=== PATIENT | female | born 1960 | race Caucasian/White ===

== ENCOUNTER 2022-06-07 20:18 | Emergency (ER) | payer BC ==
[2022-06-07 20:37] VITALS: BP 218/94; PULSE 68; RESP 18; TEMP 98.1
[2022-06-08] MEDS ORDERED: FLUORESCEIN STRIPS 1 MG STRIP BOTH EYES ONE
[2022-06-08] MEDS ORDERED: PROPARACAINE 0.5% OPHTH DROPS 15 ML BTL BOTH EYES STA
[2022-06-08] MEDS ORDERED: MORPHINE SULFATE 4 MG/ML SYRINGE IV STA (00:11)
[2022-06-08] MEDS ORDERED: ONDANSETRON 4 MG/2 ML VIAL IVP STA (00:11)
--- NOTE | 2022-06-08 00:15 | ED ---
Eye Problem HPI - General Chief complaint: Eye Problems Stated complaint: swollen/pressure eye Time Seen by Provider: 06/07/22 23:58 Source: patient Mode of arrival: ambulatory Limitations: no limitations - History of Present Illness Initial comments: This is a pleasant 62-year-old female who presents to emergency department complaining vision change and pressure in her left eye. Patient states she believes she is having a glaucoma 4. Ago and was sent to her retinologist who works out of [facility]. Patient had what sounds like a laser trabeculectomy. She went back for follow up a few days later and had drainage with a needle done by the same retinologist. Patient states she then followed up with Dr. Jarquin who also did a laser procedure. Patient also had nasal drainage after that. Patient was put on medications including an alpha 2 agonist and medications to decrease production of aqueos humor. Patient had follow-up appointments and her pressure was getting better. However, she says she woke up this morning and had some foggy vision out of the left eye. Patient then took a nap and got up around 4 PM and noted there was a pain and pressure. Patient states she tried to call her superintendent renting managing, Dr. Jarquin, but he was not available. Patient also called her retinologist but apparently was unable to get in contact with him as well. No headache, no fever or chills, , no sore throat or difficulty with speech, no neck pain, no chest pain or shortness of breath, no abdominal pain, no nausea or vomiting, no changes in urination or bowel movements, no numbness or tingling, no extremity pain, no skin rashes or lesions. Past medical, surgical, social, and family history reviewed. chief complaint: eye pain, vision change - Related Data Allergies Allergy/AdvReac Type Severity Reaction Status Date / Time ampicillin Allergy Rash/Hives Verified 06/07/22 20:38 aspirin Allergy Rash/Hives Verified 06/07/22 20:38 ciprofloxacin [From Cipro] Allergy Rash/Hives Verified 06/07/22 20:38 codeine Allergy Vomiting Verified 06/07/22 20:38 epinephrine [From EpiPen] Allergy Rash/Hives Verified 06/07/22 20:38 Sulfa (Sulfonamide Allergy Rash/Hives Verified 06/07/22 20:38 Antibiotics) Review of Systems ROS Statement: Those systems with pertinent positive or pertinent negative responses have been documented in the HPI. ROS Other: All systems not noted in ROS Statement are negative. Past Medical History Past Medical History: Asthma, Diabetes Mellitus, Hypertension, Thyroid Disorder Additional Past Medical History / Comment(s): pressure in eye History of Any Multi-Drug Resistant Organisms: None Reported Past Surgical History: No Surgical Hx Reported Past Psychological History: No Psychological Hx Reported Smoking Status: Never smoker Past Alcohol Use History: Rare Past Drug Use History: None Reported General Exam Limitations: no limitations General appearance: in distress (Minimal) Head exam: Present: atraumatic, normocephalic, normal inspection Eye exam: Present: PERRL, EOMI, other (Anterior chamber appears to be cloudy on gross examination) Expanded Eyelids: Normal Inspection: Right Pupils: Regular, Round: Bilateral (Approximately 3 mm with sluggish response), Reactive: Bilateral (Sluggish) Sclera/Conjunctival: Normal Inspection: Bilateral Anterior chamber: Normal Inspection: Right (Left anterior chamber is cloudy) Posterior chamber: Deferred: Bilateral Visual acuity (R) = 20/: 50 Visual acuity (L) = 20/: 200 (He is blurred, patient really just discern light and shape) With correction: Yes IOP (R) in mmH IOP (L) in mmH IOP measured with: other ([facility]onom[facility]) ENT exam: Present: normal exam, normal oropharynx, mucous membranes moist, normal external ear exam. Absent: mucous membranes dry Neck exam: Present: normal inspection. Absent: tenderness, meningismus, lymphadenopathy Respiratory exam: Present: normal lung sounds bilaterally. Absent: respiratory distress, wheezes, rales, rhonchi, stridor Cardiovascular Exam: Present: regular rate, normal rhythm, normal heart sounds. Absent: systolic murmur, diastolic murmur, rubs, gallop, clicks GI/Abdominal exam: Present: soft. Absent: tenderness Neurological exam: Present: alert, oriented X3, CN II-XII intact. Absent: motor sensory deficit Psychiatric exam: Present: normal affect, normal mood Skin exam: Present: warm, dry, intact, normal color. Absent: rash Course Vital Signs 06/07/22 20:33 Temperature 98.1 F Pulse Rate 68 Respiratory 18 Rate Blood Pressure 218/94 O2 Sat by Pulse 99 Oximetry - Reevaluation(s) Reevaluation #1: 06/08/22 02:23 Patient was rechecked prior to transfer and is essentially unchanged. Patient did have nausea and was unable to take by mouth medications. We changed the acetazolamide to IV. I had a long discussion with EMS, patient will need her eyedrops 1 drop of each medication the left eye every [address] down to [facility]. This patient required several rechecks and several procedures for eye pressure and slit-lamp examination - Consultations Consultation #1: Call placed for on-call ophthalmology, Dr. Becerra Procedures - Procedures Initial comment: I was anesthetized with proparacaine. I pressure was checked with the tonometer. Slit lamp examination reveals a cloudy anterior chamber. There was no evidence by my limited exam for cell and flare. Pupils appear to be fixed at around 3-4 mm and were somewhat sluggish to react. Medical Decision Making - Medical Decision Making Patient on dorzolamide, lantonoprost, and brimonidine Patient sees Dr. Jesse Jarquin for ophthalmology and Dr. Brothers out of [facility] for neurology Case discussed with Dr. Flowers the superintendent renting managing at [facility]. She wants all of the patient's eye drops given every [address] down[address] We will start the drops here. She also wanted to ensure that the patient had the dose of Diamox 500 mg by mouth before going. Apparently according to the superintendent renting managing the patient may have seen another physician down there for the glaucoma procedure. She also suggested highly that the patient come by [facility]. Patient transferred [facility]. Eyedrops every [address] down[address] Transferred via ambulance. Acetasol might 500 mg IV given prior to going Patient In a bright room in an upright position. The case was discussed in detail with ED attending physician. Presentation, findings, treatment plan discussed in detail. Adviser Dr. Leonard - Lab Data Result diagrams: 06/08/22 00:54 06/08/22 00:54 Lab Results 06/08/22 06/08/22 Range/Units 00:54 00:54 WBC 10.5 (3.8-10.6) k/uL RBC 3.90 (3.80-5.40) m/uL Hgb 11.3 L (11.4-16.0) gm/dL Hct 34.2 (34.0-46.0) % MCV 87.6 (80.0-100.0) fL MCH 29.0 (25.0-35.0) pg MCHC 33.1 (31.0-37.0) g/dL RDW 12.6 (11.5-15.5) % Plt Count 289 (150-450) k/uL MPV 7.7 Sodium 138 (137-145) mmol/L Potassium 4.6 (3.5-5.1) mmol/L Chloride 99 (98-107) mmol/L Carbon Dioxide 24 (22-30) mmol/L Anion Gap 15 mmol/L BUN 14 (7-17) mg/dL Creatinine 0.64 (0.52-1.04) mg/dL Est GFR (CKD-EPI)AfAm >90 (>60 ml/min/1.73 sqM) Est GFR (CKD-EPI)NonAf >90 (>60 ml/min/1.73 sqM) Glucose 228 H (74-99) mg/dL Calcium 9.9 (8.4-10.2) mg/dL Critical Care Time Total Critical Care Time: 40 Critical Care Time: Time intensive diagnosis with multiple interventions, discussions with the superintendent renting managing at [facility]. Effort was made to contact ophthalmology here. However the patient has a retinologist superintendent renting managing at [facility]. Patient transferred to that facility for continuity of care as she recently had a procedure done there. I had discussion with the vice president residential solar sales superintendent renting managing at that facility. Case also discussed with the accepting ER physician. Tonometry, slit lamp examination Disposition Clinical Impression: Acute angle-closure glaucoma, Blurred vision, left eye, Increased intraocular pressure, Acute left eye pain, Uncontrolled hypertension Narrative: Probable angle-closure glaucoma Disposition: OTHER INSTITUTION NOT DEFINED Condition: Fair Is patient prescribed a controlled substance at d/c from ED?: No Time of Disposition: 01:44 - Out of Hospital Transfer - Req. Specs Out of Hospital Transfer - Requested Specifics: Other Emergency Center ([facility], Dr. Cho)
[2022-06-08 01:07] LABS: HCT 34.2 % (34.0-46.0); HGB 11.3 gm/dL (11.4-16.0); MCHC 33.1 g/dL (31.0-37.0); MCV 87.6 fL (80.0-100.0); Mean Platelet Volume 7.7; Platelet Count 289 k/uL (150-450); RDW 12.6 % (11.5-15.5); WBC 10.5 k/uL (3.8-10.6)
[2022-06-08 01:17] LABS: African American GFR (CKD) >90 (>60 ml/min/1.73 sqM); Anion Gap 15 mmol/L; Blood Urea Nitrogen 14 mg/dL (7-17); Calcium 9.9 mg/dL (8.4-10.2); Carbon Dioxide 24 mmol/L (22-30); Chloride 99 mmol/L (98-107); Glucose 228 mg/dL (74-99); Non-African American GFR(CKD) >90 (>60 ml/min/1.73 sqM); Potassium 4.6 mmol/L (3.5-5.1); Sodium 138 mmol/L (137-145)
[2022-06-08] MEDS ORDERED: SODIUM CHLORIDE 0.9% 1,000 ML IV SCH (01:45)
== END 2022-06-08 02:31 | disposition other institution (70) ==
LOC: EC 20:18
DX: H02.849 Edema of unspecified eye, unspecified eyelid (principal); Z88.0 Allergy status to penicillin; Z88.6 Allergy status to analgesic agent; Z88.1 Allergy status to other antibiotic agents; Z88.5 Allergy status to narcotic agent; Z88.2 Allergy status to sulfonamides; J45.909 Unspecified asthma, uncomplicated; E11.9 Type 2 diabetes mellitus without complications; I10 Essential (primary) hypertension
CPT/HCPCS: 36415; 80048; 85027; 99284; 96374; 96375; J2270; J1120; J2405

== ENCOUNTER 2022-09-11 14:34 | Inpatient (IN) | payer BC ==
--- NOTE | 2022-09-11 15:30 | ED ---
General Adult HPI - General Chief complaint: Skin/Abscess/Foreign Body Stated complaint: L foot infection Time Seen by Provider: 09/11/22 15:08 Source: patient Mode of arrival: ambulatory Limitations: no limitations - History of Present Illness Initial comments: 's patient is a 62-year-old woman who presents here at the advice of her hot box spotter, to be seen about foot infection. The patient went to see her diet tryst as she had noticed redness to the medial aspect of her left foot. She states that the hot box spotter saw her, lanced what he felt was a fluid collection there, and then sent her here with the intention of having IV antibiotics. The patient had not noticed any systemic symptoms, no fever or chills, palpitations, chest pain, dyspnea or other symptoms. She had not noticed redness or swelling prior to today. Onset/Timin -: days(s) Location: left, lower extremity Radiation: non-radiation Severity scale (1-10): 0 Improves with: none Worsens with: none Associated Symptoms: denies other symptoms - Related Data Home Medications Medication Instructions Recorded Confirmed Acetaminophen [Tylenol Arthritis] 650 mg PO QID 09/11/22 09/11/22 Chlorthalidone [Hygroton] 25 mg PO DAILY 09/11/22 09/11/22 Ergocalciferol (Vitamin D2) 1,250 mcg PO WE 09/11/22 09/11/22 [Drisdol (50,000 Iu)] Loratadine [Claritin] 10 mg PO DAILY 09/11/22 09/11/22 Losartan Potassium [Cozaar] 100 mg PO DAILY 09/11/22 09/11/22 Metoprolol Succinate [Metoprolol 12.5 mg PO DAILY 09/11/22 09/11/22 Succinate ER] metFORMIN HCL 1,000 mg PO BID-W/MEALS 09/11/22 09/11/22 prednisoLONE acetate [Pred Mild] 1 drop LEFT EYE BID 09/11/22 09/11/22 Previous Rx's Medication Instructions Recorded clindamycin HCL 300 mg PO QID #28 capsule 09/11/22 Allergies Allergy/AdvReac Type Severity Reaction Status Date / Time ampicillin Allergy Rash/Hives Verified 09/11/22 17:28 aspirin Allergy Rash/Hives Verified 09/11/22 17:28 atropine Allergy Unknown Verified 09/11/22 17:28 ciprofloxacin [From Cipro] Allergy Rash/Hives Verified 09/11/22 17:28 codeine Allergy Vomiting Verified 09/11/22 17:28 epinephrine [From EpiPen] Allergy Rash/Hives Verified 09/11/22 17:28 morphine Allergy Unknown Verified 09/11/22 17:28 Sulfa (Sulfonamide Allergy Rash/Hives Verified 09/11/22 17:28 Antibiotics) Review of Systems ROS Statement: Those systems with pertinent positive or pertinent negative responses have been documented in the HPI. ROS Other: All systems not noted in ROS Statement are negative. Constitutional: Denies: fever, chills, weakness Respiratory: Denies: cough, dyspnea Cardiovascular: Denies: chest pain, palpitations, edema Gastrointestinal: Denies: abdominal pain, vomiting, diarrhea Genitourinary: Denies: dysuria, hematuria Musculoskeletal: Reports: as per HPI, arthralgia. Denies: back pain Skin: Reports: lesions Neurological: Reports: paresthesias. Denies: weakness, numbness Hematological/Lymphatic: Denies: easy bleeding Past Medical History Past Medical History: Asthma, Diabetes Mellitus, Hypertension, Thyroid Disorder Additional Past Medical History / Comment(s): pressure in eye History of Any Multi-Drug Resistant Organisms: None Reported Past Surgical History: No Surgical Hx Reported Past Psychological History: No Psychological Hx Reported Smoking Status: Never smoker Past Alcohol Use History: Rare Past Drug Use History: None Reported General Exam Limitations: no limitations General appearance: alert, in no apparent distress Head exam: Present: atraumatic, normocephalic Eye exam: Present: normal appearance. Absent: scleral icterus, conjunctival injection Neck exam: Present: normal inspection Respiratory exam: Present: normal lung sounds bilaterally. Absent: respiratory distress, wheezes, rales, rhonchi, stridor Cardiovascular Exam: Present: regular rate, normal rhythm, normal heart sounds. Absent: systolic murmur, diastolic murmur, rubs, gallop GI/Abdominal exam: Present: soft. Absent: distended, tenderness, guarding, rebound, rigid, mass Extremities exam: Present: other (Patient has approximately 7 cm diameter area of erythema warmth to the plantar aspect of the left midfoot. There is ulceration in the center with a small amount of bloody purulent drainage. There is moderate tenderness. Chronic foot deformity.) Back exam: Absent: CVA tenderness (R), CVA tenderness (L) Neurological exam: Present: alert Skin exam: Present: warm, dry, intact, normal color. Absent: rash Course Vital Signs 09/11/22 09/11/22 09/11/22 14:39 15:15 15:32 Temperature 97.8 F Pulse Rate 71 68 70 Pulse Rate [ Left] Respiratory 20 17 16 Rate Blood Pressure 199/82 199/76 187/68 Blood Pressure [Left Arm] O2 Sat by Pulse 98 97 97 Oximetry 09/11/22 09/11/22 09/11/22 16:00 17:30 18:31 Temperature Pulse Rate 77 74 77 Pulse Rate [ Left] Respiratory 17 18 16 Rate Blood Pressure 177/67 174/67 196/69 Blood Pressure [Left Arm] O2 Sat by Pulse 99 99 97 Oximetry 09/11/22 09/11/22 19:19 20:00 Temperature 98.3 F 97.6 F Pulse Rate 68 Pulse Rate [ 75 Left] Respiratory 17 17 Rate Blood Pressure 189/69 Blood Pressure 150/64 [Left Arm] O2 Sat by Pulse 98 99 Oximetry Medical Decision Making - Medical Decision Making This patient is 62-year-old woman presenting from her hot box spotter's clinic to have further evaluation and treatment of diabetic foot wound. X-ray was obtained and I interpreted as not showing osteomyelitis or gas gangrene. The patient did have workup here including labs and culture. Started on antibiotics and patient will be admitted to ensure that there is beginning of improvement in her condition and also to have consultation with the vascular surgeon. Case was discussed with the admitting physician Was pt. sent in by a medical professional or institution? @ -[Patient's hot box spotter Did you speak to anyone other than the patient for history? @ -[No Did you review nursing and triage notes? @ -[agree Were old charts reviewed? @ -[No Differential Diagnosis? @ -Differential diagnosis includes but not limited to diabetic foot infection, puncture wound with a wound infection, vasculitis, acute arterial insufficiency, as well as other conditions EKG interpreted by me (3pts min.)? @ -[See chart X-rays interpreted by me (1pt min.)? @ -[See chart CT interpreted by me (1pt min.)? @ -[none] U/S interpreted by me (1pt. min.)? @ -[none] What testing was considered but not performed? (CT, X-rays, U/S, labs)? Why? @ [None What meds were considered but not given? Why? @ -[none] Did you discuss the management of the patient with other professionals? @ -[Admitting physician Did you reconcile home meds? @ -[Yes Was smoking cessation discussed for >3mins.? @ -[none] Was critical care preformed (if so, how long)? @ -[none] Were there social determinants of health that impacted care today? How? (Homelessness, low income, unemployed, alcoholism, drug addiction, transportation, low edu. Level, literacy, decrease access to med. care, long-term, rehab)? @ -[None Was there de-escalation of care discussed even if they declined? (Discuss DNR or withdrawal of care, Hospice)? @ -[No What co-morbidities impacted this encounter? (DM, HTN, Smoking, COPD, CAD, Cancer, CVA, Hep., AIDS, mental health diagnosis, sleep apnea, morbid obesity)? @ -[Diabetes Was patient admitted / discharged? @ -[Admitted Undiagnosed new problem with uncertain prognosis? @ -[none] Drug Therapy requiring intensive monitoring for toxicity (Heparin, Nitro, Insulin, Cardizem)? @ -[Vancomycin Were any procedures done? @ -[none] Diagnosis/symptom? @ -[Acute diabetic foot ulcer Acute, or Chronic, or Acute on Chronic? @ -[default] Uncomplicated (without systemic symptoms) or Complicated (systemic symptoms)? @ -[Uncomplicated Side effects of treatment? @ -[none] Exacerbation, Progression, or Severe Exacerbation] @ -[no] Poses a threat to life or bodily function? @ -[Threat of amputation without adequate treatment - Lab Data Result diagrams: 09/11/22 15:34 09/11/22 15:34 Lab Results 09/11/22 09/11/22 Range/Units 15:34 15:34 WBC 10.6 (3.8-10.6) k/uL RBC 4.02 (3.80-5.40) m/uL Hgb 11.4 (11.4-16.0) gm/dL Hct 35.4 (34.0-46.0) % MCV 88.1 (80.0-100.0) fL MCH 28.3 (25.0-35.0) pg MCHC 32.1 (31.0-37.0) g/dL RDW 13.2 (11.5-15.5) % Plt Count 308 (150-450) k/uL MPV 7.7 Neutrophils % 76 % Lymphocytes % 15 % Monocytes % 5 % Eosinophils % 3 % Basophils % 1 % Neutrophils # 8.0 H (1.3-7.7) k/uL Lymphocytes # 1.6 (1.0-4.8) k/uL Monocytes # 0.5 (0-1.0) k/uL Eosinophils # 0.3 (0-0.7) k/uL Basophils # 0.1 (0-0.2) k/uL ESR 91 H (0-20) mm/hr Sodium 142 (137-145) mmol/L Potassium 4.0 (3.5-5.1) mmol/L Chloride 101 (98-107) mmol/L Carbon Dioxide 29 (22-30) mmol/L Anion Gap 12 mmol/L BUN 16 (7-17) mg/dL Creatinine 0.83 (0.52-1.04) mg/dL Est GFR (CKD-EPI)AfAm 88 (>60 ml/min/1.73 sqM) Est GFR (CKD-EPI)NonAf 76 (>60 ml/min/1.73 sqM) Glucose 112 H (74-99) mg/dL Calcium 10.0 (8.4-10.2) mg/dL Total Bilirubin 0.8 (0.2-1.3) mg/dL AST 17 (14-36) U/L ALT 18 (4-34) U/L Alkaline Phosphatase 80 (38-126) U/L C-Reactive Protein 13.1 H (<1.0) mg/dL Total Protein 8.2 (6.3-8.2) g/dL Albumin 4.7 (3.5-5.0) g/dL Acetone, Qual Negative (Negative) Disposition Clinical Impression: Diabetic foot infection Disposition: ADMITTED IP TO THIS HOSP Condition: Good Is patient prescribed a controlled substance at d/c from ED?: No
[2022-09-11] MEDS ORDERED: CLINDAMYCIN 600 MG in DEXTROSE 5% IN WATER 50 ML IVPB STA ×2 (15:42)
[2022-09-11 16:02] LABS: Basophils # (A) 0.1 k/uL (0-0.2); Basophils % (A) 1 %; Eosinophils # (A) 0.3 k/uL (0-0.7); Eosinophils % (A) 3 %; HCT 35.4 % (34.0-46.0); HGB 11.4 gm/dL (11.4-16.0); Lymphocytes # (A) 1.6 k/uL (1.0-4.8); Lymphocytes % (A) 15 %; MCH 28.3 pg (25.0-35.0); MCHC 32.1 g/dL (31.0-37.0); MCV 88.1 fL (80.0-100.0); Mean Platelet Volume 7.7; Monocytes # (A) 0.5 k/uL (0-1.0); Monocytes % (A) 5 %; Neutrophils % (A) 76 %; Platelet Count 308 k/uL (150-450); RBC 4.02 m/uL (3.80-5.40); RDW 13.2 % (11.5-15.5); WBC 10.6 k/uL (3.8-10.6)
--- NOTE | 2022-09-11 16:04 | XR ---
EXAMINATION TYPE: XR foot complete 3 views LT DATE OF EXAM: 09/11/2022 Comparison: None Clinical History: 62-year-old female foot infection Findings: There is extensive midfoot deformity relating to Charcot arthropathy with midfoot malalignment, deran gement, and bony debris. Secondary rocker-bottom foot deformity and midfoot plantar ulcer. No maddy l ytic osseous destruction is identified. Impression: Severe Charcot arthropathy along the mid foot with secondary rocker-bottom foot deformity and associa briana mid foot plantar soft tissue ulcer. No discrete radiographic evidence for osteomyelitis.
[2022-09-11 16:12] LABS: ALT 18 U/L (4-34); AST 17 U/L (14-36); African American GFR (CKD) 88 (>60 ml/min/1.73 sqM); Albumin 4.7 g/dL (3.5-5.0); Alkaline Phosphatase 80 U/L (38-126); Anion Gap 12 mmol/L; Blood Urea Nitrogen 16 mg/dL (7-17); Carbon Dioxide 29 mmol/L (22-30); Chloride 101 mmol/L (98-107); Glucose 112 mg/dL (74-99); Non-African American GFR(CKD) 76 (>60 ml/min/1.73 sqM); Sodium 142 mmol/L (137-145); Total Bilirubin 0.8 mg/dL (0.2-1.3); Total Protein 8.2 g/dL (6.3-8.2)
[2022-09-11 16:24] LABS: C Reactive Protein 13.1 mg/dL (<1.0)
[2022-09-11 17:49] LABS: Erythrocyte Sedimentation Rate 91 mm/hr (0-20)
[2022-09-11] MEDS ORDERED: VANCOMYCIN IV PER PHARMACY 1 EACH MISC MISCELLANE PRN (18:02)
[2022-09-11] MEDS ORDERED: NALOXONE 0.4 MG/ML 1 ML VIAL IV PRN (18:04)
[2022-09-11] MEDS ORDERED: ACETAMINOPHEN TAB 325 MG TAB PO PRN (18:04)
[2022-09-11] MEDS ORDERED: VANCOMYCIN 1,750 MG in SODIUM CHLORIDE 0.9% 500 ML 500 ML IVPB ONE (18:15)
[2022-09-11] MEDS: SODIUM CHLORIDE 0.9% 1,000 ML IV SCH (18:26)
[2022-09-11 20:35] LABS: Glucose,Whole Blood 132 mg/dL (70-110)
--- NOTE | 2022-09-11 21:31 | P.HPIM ---
History of Present Illness H&P Date: 09/11/22 Chief Complaint: Left foot abscess This is a pleasant 62-year-old patient who follows with Dr. Sammi pierce Chronic stable medical conditions include asthma, diabetes, hypertension, peripheral neuropathy, left Charcot foot. Patient is very bored on the left foot. He notices a leg swelling there. Has no sensations. He developed a 80 of redness and she took off her shoe. Went to a chiropractor. He drained a large amount of pus and sent the patient in. Denies any fever and chills. Last 2 days has been feeling tired and sleepy. Review of systems: GEN.: Tired, decreased appetite EYES: None HEENT: None NECK: None RESPIRATORY: None CARDIOVASCULAR: None GASTROINTESTINAL: None GENITOURINARY: None MUSCULOSKELETAL: [Left Charcot foot LYMPHATICS: None HEMATOLOGICAL: None PSYCHIATRY: None NEUROLOGICAL: Neuropathy Past medical history to include: Asthma, diabetes with peripheral neuropathy, left Charcot foot, hypertension, glaucoma Social history: Lives alone. No smoking or alcohol Physical examination: VITAL SIGNS: 97.6, 75, 17, 150/64, 99% room air GENERAL: BMI 42.5, declining weight awake, comfortable. EYES: Pupils equal. Conjunctiva normal. HEENT: External appearance of nose and ears normal, oral cavity grossly normal. NECK: JVD not raised; masses not palpable. HEART: First and second heart sounds are normal; no edema. LUNGS: Respiratory rate normal; clear to auscultation. ABDOMEN: Soft, nontender, liver spleen not palpable, no masses palpable. PSYCH: Alert and oriented x3; mood and affect normal. MUSCULOSKELETAL:No Clubbing/cyanosis;muscles-grossly intact. Left foot distorted. Wound on the plantar aspect. Dressing. NEUROLOGICAL: Cranial nerves grossly intact; no facial asymmetry, power and sensation grossly intact. Peripheral sensation decreased LYMPHATICS: No lymph nodes palpable in the axilla and neck INVESTIGATIONS, reviewed in the clinical context: White count 10.6 hemoglobin 11.4 platelets 308 potassium 4 creatinine 0.83 CRP 13.1 Foot x-ray: Extensive midfoot deformity Malalignment derangement and bony debris . Midfoot plantar ulcer. Assessment and plan: -Abscess of the left Charcot foot that was drained by patient's chiropractor. IV vancomycin. Cultures. Consult vascular. -Moderate obesity BMI 42.5 Weight loss measures -Essential hypertension Losartan, Toprol-XL -Diabetes mellitus type 2 Follow Accu-Cheks with sliding scale -Painless diabetic peripheral neuropathy -Left Charcot foot Past Medical History Past Medical History: Asthma, Diabetes Mellitus, Hypertension, Thyroid Disorder Additional Past Medical History / Comment(s): pressure in eye History of Any Multi-Drug Resistant Organisms: None Reported Past Surgical History: No Surgical Hx Reported Past Psychological History: No Psychological Hx Reported Smoking Status: Never smoker Past Alcohol Use History: Rare Past Drug Use History: None Reported Medications and Allergies Home Medications Medication Instructions Recorded Confirmed Type Acetaminophen [Tylenol Arthritis] 650 mg PO QID 09/11/22 09/11/22 History Chlorthalidone [Hygroton] 25 mg PO DAILY 09/11/22 09/11/22 History Ergocalciferol (Vitamin D2) 1,250 mcg PO WE 09/11/22 09/11/22 History [Drisdol (50,000 Iu)] Loratadine [Claritin] 10 mg PO DAILY 09/11/22 09/11/22 History Losartan Potassium [Cozaar] 100 mg PO DAILY 09/11/22 09/11/22 History Metoprolol Succinate [Metoprolol 12.5 mg PO DAILY 09/11/22 09/11/22 History Succinate ER] clindamycin HCL 300 mg PO QID #28 capsule 09/11/22 Rx metFORMIN HCL 1,000 mg PO BID-W/MEALS 09/11/22 09/11/22 History prednisoLONE acetate [Pred Mild] 1 drop LEFT EYE BID 09/11/22 09/11/22 History Allergies Allergy/AdvReac Type Severity Reaction Status Date / Time ampicillin Allergy Rash/Hives Verified 09/11/22 17:28 aspirin Allergy Rash/Hives Verified 09/11/22 17:28 atropine Allergy Unknown Verified 09/11/22 17:28 ciprofloxacin [From Cipro] Allergy Rash/Hives Verified 09/11/22 17:28 codeine Allergy Vomiting Verified 09/11/22 17:28 epinephrine [From EpiPen] Allergy Rash/Hives Verified 09/11/22 17:28 morphine Allergy Unknown Verified 09/11/22 17:28 Sulfa (Sulfonamide Allergy Rash/Hives Verified 09/11/22 17:28 Antibiotics) Physical Exam Vitals: Vital Signs Temp Pulse Pulse Resp BP BP Pulse Ox 09/11/22 20:00 97.6 F 75 17 150/64 99 09/11/22 19:19 98.3 F 68 17 189/69 98 09/11/22 18:31 77 16 196/69 97 09/11/22 17:30 74 18 174/67 99 09/11/22 16:00 77 17 177/67 99 09/11/22 15:32 70 16 187/68 97 09/11/22 15:15 68 17 199/76 97 09/11/22 14:39 97.8 F 71 20 199/82 98 Intake and Output 09/11/22 09/11/22 09/11/22 06:59 14:59 22:59 Other: Weight 108.862 kg Results CBC & Chem 7: 09/11/22 15:34 09/11/22 15:34 Labs: Abnormal Lab Results - Last 24 Hours (Table) 09/11/22 09/11/22 09/11/22 Range/Units 15:34 15:34 20:33 Neutrophils # 8.0 H (1.3-7.7) k/uL ESR 91 H (0-20) mm/hr Glucose 112 H (74-99) mg/dL POC Glucose (mg/dL) 132 H (70-110) mg/dL C-Reactive Protein 13.1 H (<1.0) mg/dL
[2022-09-11] MEDS ORDERED: LACTULOSE 20 GM/30 ML CUP PO PRN (21:32)
[2022-09-11] MEDS ORDERED: ONDANSETRON 4 MG/2 ML VIAL IVP PRN (21:32)
[2022-09-11] MEDS ORDERED: ALPRAZolam 0.25 MG TAB PO PRN (21:32)
[2022-09-11] MEDS ORDERED: MELATONIN 3 MG TABLET PO PRN (21:32)
[2022-09-11] MEDS ORDERED: CALCIUM CARBONATE 500 MG CHEWABLE PO PRN (21:32)
[2022-09-11] MEDS ORDERED: DEXTROSE 50% SYRINGE 50 ML IVP PRN ×2 (21:33)
[2022-09-11] MEDS: INSULIN ASPART (NovoLOG) 100 UNIT/ML VIAL SQ SCH (22:16)
[2022-09-11] MEDS: ENOXAPARIN 40 MG/0.4 ML SYRINGE SQ SCH (22:35)
[2022-09-11] MEDS: ACETAMINOPHEN TAB 325 MG TAB PO SCH (22:35)
[2022-09-11] MEDS: prednisoLONE ACETATE 1% OPHTH DROPS 5 ML BTL LEFT EYE SCH ×2 (22:36→22:47)
[2022-09-12] MEDS: prednisoLONE ACETATE 1% OPHTH DROPS 5 ML BTL LEFT EYE SCH ×10 (00:16→22:30)
[2022-09-12 06:01] LABS: Glucose,Whole Blood 118 mg/dL (70-110)
[2022-09-12] MEDS: INSULIN ASPART (NovoLOG) 100 UNIT/ML VIAL SQ SCH ×3 (06:30→16:49)
[2022-09-12 07:03] LABS: ALT 12 U/L (4-34); AST 13 U/L (14-36); African American GFR (CKD) >90 (>60 ml/min/1.73 sqM); Albumin 3.6 g/dL (3.5-5.0); Albumin/Globulin Ratio 1.3; Alkaline Phosphatase 57 U/L (38-126); Anion Gap 7 mmol/L; Blood Urea Nitrogen 14 mg/dL (7-17); Calcium 8.8 mg/dL (8.4-10.2); Carbon Dioxide 28 mmol/L (22-30); Chloride 107 mmol/L (98-107); Globulin 2.7 g/dL; Glucose 126 mg/dL (74-99); Non-African American GFR(CKD) 80 (>60 ml/min/1.73 sqM); Potassium 3.8 mmol/L (3.5-5.1); Sodium 142 mmol/L (137-145); Total Bilirubin 0.6 mg/dL (0.2-1.3); Total Protein 6.3 g/dL (6.3-8.2)
[2022-09-12] MEDS: metFORMIN 500 MG TAB PO SCH ×2 (07:36→17:03)
[2022-09-12] MEDS: ENOXAPARIN 40 MG/0.4 ML SYRINGE SQ SCH (08:55)
[2022-09-12] MEDS: ACETAMINOPHEN TAB 325 MG TAB PO SCH ×4 (08:55→22:29)
[2022-09-12] MEDS: LOSARTAN 50 MG TAB PO SCH (08:57)
[2022-09-12] MEDS ORDERED: METOPROLOL SUCCINATE (ER) 25 MG TAB.ER.24H PO SCH (09:00)
[2022-09-12] MEDS: VANCOMYCIN 1,750 MG in SODIUM CHLORIDE 0.9% 500 ML 500 ML IVPB SCH (10:23)
[2022-09-12 11:32] LABS: Glucose,Whole Blood 98 mg/dL (70-110)
--- NOTE | 2022-09-12 13:04 | P.PN ---
Progress Note - Text Progress Note Date: 09/12/22 Chief Complaint: Left foot abscess This is a pleasant 62-year-old patient who follows with Dr. Sammi pierce Chronic stable medical conditions include asthma, diabetes, hypertension, peripheral neuropathy, left Charcot foot. Patient is very bored on the left foot. He notices a leg swelling there. Has no sensations. He developed a area of redness and she took off her shoe. Went to a chiropractor. He drained a large amount of pus and sent the patient in. Denies any fever and chills. Last 2 days has been feeling tired and sleepy. 09/12/2022: Comfortable. Oral intake fair. On IV vancomycin and cefepime. Cultures pending. Consultation to ID. Ending vascular input. Blood pressure running on the high side. Increase Toprol-XL to 12.5 twice a day. Add chlorthalidone 25 mg a day Active Medications Acetaminophen (Acetaminophen Tab 325 Mg Tab) 650 mg PO Q6HR PRN PRN Reason: Mild Pain or Fever > 100.5 Acetaminophen (Acetaminophen Tab 325 Mg Tab) 650 mg PO QID [facility] Last Admin: 09/12/22 12:37 Dose: 650 mg Alprazolam (Alprazolam 0.25 Mg Tab) 0.25 mg PO Q6HR PRN PRN Reason: Anxiety Calcium Carbonate/Glycine (Calcium Carbonate 500 Mg Chewable) 1,000 mg PO Q4HR PRN PRN Reason: Dyspepsia Dextrose/Water (Dextrose 50% Syringe 50 Ml) 25 ml IVP PER PROTOCOL PRN; Protocol PRN Reason: Hypoglycemia Dextrose/Water (Dextrose 50% Syringe 50 Ml) 50 ml IVP PER PROTOCOL PRN; Protocol PRN Reason: Hypoglycemia Enoxaparin Sodium (Enoxaparin 40 Mg/0.4 Ml Syringe) 40 mg SQ DAILY [facility] Last Admin: 09/12/22 08:55 Dose: 40 mg Ergocalciferol (Ergocalciferol 1,250 Mcg (50,000 Iu) Capsule) 1,250 mcg PO WE [facility] Sodium Chloride (Saline 0.9%) 1,000 mls @ 20 mls/hr IV .Q24H [facility] Last Admin: 09/11/22 18:26 Dose: 20 mls/hr Vancomycin HCl 1,750 mg/ (Sodium Chloride) 500 mls @ 167 mls/hr IVPB Q16H [facility] Last Admin: 09/12/22 10:23 Dose: 167 mls/hr Cefepime HCl 2 gm/ Sodium (Chloride) 100 mls @ 25 mls/hr IVPB Q8HR [facility]; Protocol Insulin Aspart (Insulin Aspart (Novolog) 100 Unit/Ml Vial) 0 unit SQ AC-TID [facility]; Protocol Last Admin: 09/12/22 11:53 Dose: Not Given Lactulose (Lactulose 20 Gm/30 Ml Cup) 20 gm PO DAILY PRN PRN Reason: Constipation Losartan Potassium (Losartan 50 Mg Tab) 100 mg PO DAILY [facility] Last Admin: 09/12/22 08:57 Dose: 100 mg Melatonin (Melatonin 3 Mg Tablet) 3 mg PO HS PRN PRN Reason: Insomnia Metformin HCl (Metformin 500 Mg Tab) 1,000 mg PO BID-W/MEALS [facility] Last Admin: 09/12/22 07:36 Dose: 1,000 mg Naloxone HCl (Naloxone 0.4 Mg/Ml 1 Ml Vial) 0.2 mg IV Q2M PRN PRN Reason: Opioid Reversal Ondansetron HCl (Ondansetron 4 Mg/2 Ml Vial) 4 mg IVP Q8HR PRN PRN Reason: Nausea And Vomiting Prednisolone Acetate (Prednisolone Acetate 1% Ophth Drops 5 Ml Btl) 1 drops LEFT EYE Q2H [facility] Last Admin: 09/12/22 11:55 Dose: 1 drops Past medical history to include: Asthma, diabetes with peripheral neuropathy, left Charcot foot, hypertension, glaucoma Social history: Lives alone. No smoking or alcohol Physical examination: VITAL SIGNS: At 8.3, 67, 16, 181/78, 93% room air GENERAL: Reclining in bed, awake, comfortable EYES: Pupils equal. Conjunctiva normal. HEENT: External appearance of nose and ears normal, oral cavity grossly normal. NECK: JVD not raised; masses not palpable. HEART: First and second heart sounds are normal; no edema. LUNGS: Respiratory rate normal; clear to auscultation. ABDOMEN: Soft, nontender, liver spleen not palpable, no masses palpable. PSYCH: Alert and oriented x3; mood and affect normal. MUSCULOSKELETAL:No Clubbing/cyanosis;muscles-grossly intact. Left foot distorted. Wound on the plantar aspect. Dressing. NEUROLOGICAL: Cranial nerves grossly intact; no facial asymmetry, power grossly intact. Peripheral sensation decreased INVESTIGATIONS, reviewed in the clinical context: White count 10.6 hemoglobin 11.4 platelets 308 potassium 4 creatinine 0.83 CRP 13.1 Foot x-ray: Extensive midfoot deformity Malalignment derangement and bony debris. Midfoot plantar ulcer. Assessment and plan: -Abscess of the left Charcot foot that was drained outpatient by patient's chiropractor. Cultures pending IV vancomycin, IV cefepime. Cultures. Vascular ID consulted. -Moderate obesity BMI 42.5 Weight loss measures -Essential hypertension, uncontrolled Losartan 100 mg a day, Toprol-XL increased to 12.5 twice a day. Chlorthalidone 25 mg daily added. -Diabetes mellitus type 2 Follow Accu-Cheks with sliding scale -Painless diabetic peripheral neuropathy -Left Charcot foot Adjust blood pressure medications. Pending culture results. Consult to vascular 90. Discussed with patient.
[2022-09-12] MEDS: CHLORTHALIDONE 25 MG TAB PO SCH (14:29)
--- NOTE | 2022-09-12 15:07 | P.GSCN ---
History of Present Illness History of present illness: 62-year-old white female history of diabetes, hypertension, chronic Charcot foot foot, patient went to his swimming professor patient had a I&D on the left foot plantar aspect measurement of the wound is 6 x 3 cm at this point no discharge noted there is mild redness noted of the lateral aspect of the skin on the plantar aspect no localized tenderness noted patient also has a dry callus on the plantar aspect with no drainage or redness and has been going to her swimming professor on regular basis x-ray foot shows Charcot foot foot with no evidence of any abscess Medical history patient has history of diabetes hypertension peripheral neuropathy Neck examination neck is supple Chest is clear good and both lungs Abdomen soft nontender Vascular femorals are 1+ DP and PT not palpable patient has a 6 x 3 cm wound which is granulated on the plantar aspect and mild redness on the skin edges noted I see no fluctuation to suggest patient needs a major immediate I&D and debridement patient is an IV antibiotic and an infectious disease if patient noticed any a evidence of abscess or any necrotic tissue we will consider doing had a wound debridement and there is a callus on the plantar aspect which is dry plan is continue with IV antibiotic nonweightbearing we'll follow with you Past Medical History Past Medical History: Asthma, Diabetes Mellitus, Hypertension, Thyroid Disorder Additional Past Medical History / Comment(s): pressure in eye History of Any Multi-Drug Resistant Organisms: None Reported Past Surgical History: No Surgical Hx Reported Past Psychological History: No Psychological Hx Reported Smoking Status: Never smoker Past Alcohol Use History: Rare Past Drug Use History: None Reported Medications and Allergies Home Medications Medication Instructions Recorded Confirmed Type Acetaminophen [Tylenol Arthritis] 650 mg PO QID 09/11/22 09/11/22 History Chlorthalidone [Hygroton] 25 mg PO DAILY 09/11/22 09/11/22 History Ergocalciferol (Vitamin D2) 1,250 mcg PO WE 09/11/22 09/11/22 History [Drisdol (50,000 Iu)] Loratadine [Claritin] 10 mg PO DAILY 09/11/22 09/11/22 History Losartan Potassium [Cozaar] 100 mg PO DAILY 09/11/22 09/11/22 History Metoprolol Succinate [Metoprolol 12.5 mg PO DAILY 09/11/22 09/11/22 History Succinate ER] clindamycin HCL 300 mg PO QID #28 capsule 09/11/22 Rx metFORMIN HCL 1,000 mg PO BID-W/MEALS 09/11/22 09/11/22 History prednisoLONE acetate [Pred Mild] 1 drop LEFT EYE BID 09/11/22 09/11/22 History Allergies Allergy/AdvReac Type Severity Reaction Status Date / Time ampicillin Allergy Rash/Hives Verified 09/11/22 17:28 aspirin Allergy Rash/Hives Verified 09/11/22 17:28 atropine Allergy Unknown Verified 09/11/22 17:28 ciprofloxacin [From Cipro] Allergy Rash/Hives Verified 09/11/22 17:28 codeine Allergy Vomiting Verified 09/11/22 17:28 epinephrine [From EpiPen] Allergy Rash/Hives Verified 09/11/22 17:28 morphine Allergy Unknown Verified 09/11/22 17:28 Sulfa (Sulfonamide Allergy Rash/Hives Verified 09/11/22 17:28 Antibiotics) Surgical - Exam Vital Signs Temp Pulse Resp BP Pulse Ox 97.8 F 71 20 199/82 98 09/11/22 14:39 09/11/22 14:39 09/11/22 14:39 09/11/22 14:39 09/11/22 14:39 Results - Labs 09/11/22 15:34 09/12/22 05:57 Abnormal Lab Results - Last 24 Hours (Table) 09/11/22 09/11/22 09/11/22 Range/Units 15:34 15:34 20:33 Neutrophils # 8.0 H (1.3-7.7) k/uL ESR 91 H (0-20) mm/hr Glucose 112 H (74-99) mg/dL POC Glucose (mg/dL) 132 H (70-110) mg/dL AST (14-36) U/L C-Reactive Protein 13.1 H (<1.0) mg/dL 09/12/22 09/12/22 Range/Units 05:57 06:00 Neutrophils # (1.3-7.7) k/uL ESR (0-20) mm/hr Glucose 126 H (74-99) mg/dL POC Glucose (mg/dL) 118 H (70-110) mg/dL AST 13 L (14-36) U/L C-Reactive Protein (<1.0) mg/dL Microbiology - Last 24 Hours (Table) 09/11/22 17:58 Gram Stain - Preliminary Foot - Left Wound Culture - Preliminary Diabetes panel 09/11/22 09/12/22 Range/Units 15:34 05:57 Sodium 142 142 (137-145) mmol/L Potassium 4.0 3.8 (3.5-5.1) mmol/L Chloride 101 107 (98-107) mmol/L Carbon Dioxide 29 28 (22-30) mmol/L BUN 16 14 (7-17) mg/dL Creatinine 0.83 0.80 (0.52-1.04) mg/dL Glucose 112 H 126 H (74-99) mg/dL Calcium 10.0 8.8 (8.4-10.2) mg/dL AST 17 13 L (14-36) U/L ALT 18 12 (4-34) U/L Alkaline Phosphatase 80 57 (38-126) U/L Total Protein 8.2 6.3 (6.3-8.2) g/dL Albumin 4.7 3.6 (3.5-5.0) g/dL Calcium panel 09/11/22 09/12/22 Range/Units 15:34 05:57 Calcium 10.0 8.8 (8.4-10.2) mg/dL Albumin 4.7 3.6 (3.5-5.0) g/dL Pituitary panel 09/11/22 09/12/22 Range/Units 15:34 05:57 Sodium 142 142 (137-145) mmol/L Potassium 4.0 3.8 (3.5-5.1) mmol/L Chloride 101 107 (98-107) mmol/L Carbon Dioxide 29 28 (22-30) mmol/L BUN 16 14 (7-17) mg/dL Creatinine 0.83 0.80 (0.52-1.04) mg/dL Glucose 112 H 126 H (74-99) mg/dL Calcium 10.0 8.8 (8.4-10.2) mg/dL Adrenal panel 09/11/22 09/12/22 Range/Units 15:34 05:57 Sodium 142 142 (137-145) mmol/L Potassium 4.0 3.8 (3.5-5.1) mmol/L Chloride 101 107 (98-107) mmol/L Carbon Dioxide 29 28 (22-30) mmol/L BUN 16 14 (7-17) mg/dL Creatinine 0.83 0.80 (0.52-1.04) mg/dL Glucose 112 H 126 H (74-99) mg/dL Calcium 10.0 8.8 (8.4-10.2) mg/dL Total Bilirubin 0.8 0.6 (0.2-1.3) mg/dL AST 17 13 L (14-36) U/L ALT 18 12 (4-34) U/L Alkaline Phosphatase 80 57 (38-126) U/L Total Protein 8.2 6.3 (6.3-8.2) g/dL Albumin 4.7 3.6 (3.5-5.0) g/dL
--- NOTE | 2022-09-12 16:11 | P.CONS ---
History of Present Illness - Reason for Consult Consult date: 09/12/22 Left foot abscess Requesting physician: Sammy Mojica - Chief Complaint Increasing swelling redness to the left foot x few days - History of Present Illness Patient is a 62-year-old female with a past medical history significant for diabetes mellitus with peripheral neuropathy patient did have a left Charcot foot, hypertension and asthma, patient apparently started having increasing swelling redness on the plantar aspect of her left foot few Days ago patient denies any history of any trauma with worsening and swelling and redness she went to see her process machine operator who subsequently tolerating her to go to the ER patient did have diabetic neuropathy denies significant pain however she did feel pressure especially when the is touched did have diffuse swelling or redness and fluctuation but denies any foul-smelling drainage, patient on presentation hospital was afebrile patient did have a normal white count with a left shift kidney function was normal patient did have a x-ray of the left foot which did show severe Charcot arthropathy with midfoot with secondary rocker- bottom foot deformity soft tissue also no evidence of Osteomyelitis, patient did have multiplePatient with multiple antibiotic ALLERGIES that would limit the number of antibiotic safe to use she was started on vancomycin has been admitted to the hospital infectious disease was consulted for further management of antibiotic therapy Review of Systems Positive point has been mentioned in the HPI rest of the systems are negative Past Medical History Past Medical History: Asthma, Diabetes Mellitus, Hypertension, Thyroid Disorder Additional Past Medical History / Comment(s): pressure in eye History of Any Multi-Drug Resistant Organisms: None Reported Past Surgical History: No Surgical Hx Reported Past Psychological History: No Psychological Hx Reported Smoking Status: Never smoker Past Alcohol Use History: Rare Past Drug Use History: None Reported Medications and Allergies Home Medications Medication Instructions Recorded Confirmed Type Acetaminophen [Tylenol Arthritis] 650 mg PO QID 09/11/22 09/11/22 History Chlorthalidone [Hygroton] 25 mg PO DAILY 09/11/22 09/11/22 History Ergocalciferol (Vitamin D2) 1,250 mcg PO WE 09/11/22 09/11/22 History [Drisdol (50,000 Iu)] Loratadine [Claritin] 10 mg PO DAILY 09/11/22 09/11/22 History Losartan Potassium [Cozaar] 100 mg PO DAILY 09/11/22 09/11/22 History Metoprolol Succinate [Metoprolol 12.5 mg PO DAILY 09/11/22 09/11/22 History Succinate ER] clindamycin HCL 300 mg PO QID #28 capsule 09/11/22 Rx metFORMIN HCL 1,000 mg PO BID-W/MEALS 09/11/22 09/11/22 History prednisoLONE acetate [Pred Mild] 1 drop LEFT EYE BID 09/11/22 09/11/22 History Allergies Allergy/AdvReac Type Severity Reaction Status Date / Time ampicillin Allergy Rash/Hives Verified 09/11/22 17:28 aspirin Allergy Rash/Hives Verified 09/11/22 17:28 atropine Allergy Unknown Verified 09/11/22 17:28 ciprofloxacin [From Cipro] Allergy Rash/Hives Verified 09/11/22 17:28 codeine Allergy Vomiting Verified 09/11/22 17:28 epinephrine [From EpiPen] Allergy Rash/Hives Verified 09/11/22 17:28 morphine Allergy Unknown Verified 09/11/22 17:28 Sulfa (Sulfonamide Allergy Rash/Hives Verified 09/11/22 17:28 Antibiotics) Physical Exam Vitals: Vital Signs Temp Pulse Pulse Resp BP BP Pulse Ox 09/12/22 10:59 164/78 09/12/22 10:44 181/78 09/12/22 07:26 98.3 F 67 16 177/81 93 L 09/12/22 02:00 97.7 F 84 17 173/71 93 L 09/11/22 22:35 75 17 09/11/22 20:00 97.6 F 75 17 150/64 99 09/11/22 19:19 98.3 F 68 17 189/69 98 09/11/22 18:31 77 16 196/69 97 09/11/22 17:30 74 18 174/67 99 09/11/22 16:00 77 17 177/67 99 09/11/22 15:32 70 16 187/68 97 09/11/22 15:15 68 17 199/76 97 09/11/22 14:39 97.8 F 71 20 199/82 98 Intake and Output 09/11/22 09/12/22 09/12/22 22:59 06:59 14:59 Other: Voiding Method Toilet # Voids 4 Weight 108.862 kg GENERAL DESCRIPTION: Middle-aged female lying in bed, no distress. No tachypnea or accessory muscle of respiration use. HEENT: Shows Pallor , no scleral icterus. Oral mucous membrane is dry. No pharyngeal erythema or thrush NECK: Trachea central, no thyromegaly. LUNGS: Unlabored breathing. Clear to auscultation anteriorly. No wheeze or crackle. HEART: S1, S2, regular rate and rhythm. No loud murmur ABDOMEN: Soft, no tenderness , guarding or rigidity, no organomegaly EXTREMITIES: Left foot did have extensive Charcot deformity with extensive swelling and redness on the dorsum aspect of the left foot with some fluctuation no drainage was noticed SKIN: No rash, no masses palpable. NEUROLOGICAL: The patient is awake, alert, oriented x3, mood and affect normal. Results CBC & Chem 7: 09/11/22 15:34 09/13/22 06:36 Labs: Abnormal Lab Results - Last 24 Hours (Table) 09/11/22 09/11/22 09/11/22 Range/Units 15:34 15:34 20:33 Neutrophils # 8.0 H (1.3-7.7) k/uL ESR 91 H (0-20) mm/hr Glucose 112 H (74-99) mg/dL POC Glucose (mg/dL) 132 H (70-110) mg/dL AST (14-36) U/L C-Reactive Protein 13.1 H (<1.0) mg/dL 09/12/22 09/12/22 Range/Units 05:57 06:00 Neutrophils # (1.3-7.7) k/uL ESR (0-20) mm/hr Glucose 126 H (74-99) mg/dL POC Glucose (mg/dL) 118 H (70-110) mg/dL AST 13 L (14-36) U/L C-Reactive Protein (<1.0) mg/dL Microbiology - Last 24 Hours (Table) 09/11/22 17:58 Gram Stain - Preliminary Foot - Left Wound Culture - Preliminary Assessment and Plan (1) Diabetic foot infection Current Visit: Yes Status: Acute Code(s): E11.628 - TYPE 2 DIABETES MELLITUS WITH OTHER SKIN COMPLICATIONS; L08.9 - LOCAL INFECTION OF THE SKIN AND SUBCUTANEOUS TISSUE, UNSP SNOMED Code(s): 994873416 Plan: 1patient with a left diabetic foot infection in this patient with evidence of possible abscess clinically as she did have a significant fluctuation and redness and will need to cover for the polymicrobial karen usually associated with diabetic foot infection. 2Patient with multiple antibiotic ALLERGIES that would limit the number of antibiotic safe to use 3-Vancomycin pharmacy to dose target trough of 15 while watching kidney function and Vanco trough closely 4-we'll add cefepime to cover for gram-negative 5-await vascular surgery evaluation for drainage of the abscess and deep culture both aerobic and anaerobic We will follow on clinical condition and cultures to further adjust medication if needed Thank you for this consultation will follow this patient with you Time with Patient: Greater than 30
[2022-09-12] MEDS: CEFEPIME 2 GM in SODIUM CHLORIDE 0.9% 100 ML IVPB SCH (16:22)
[2022-09-12 16:38] LABS: Glucose,Whole Blood 120 mg/dL (70-110)
[2022-09-12] MEDS: SODIUM CHLORIDE 0.9% 1,000 ML IV SCH (18:20)
[2022-09-12 19:49] LABS: Glucose,Whole Blood 153 mg/dL (70-110)
[2022-09-12] MEDS: METOPROLOL SUCCINATE (ER) 25 MG TAB.ER.24H PO SCH (22:29)
[2022-09-13] MEDS: CEFEPIME 2 GM in SODIUM CHLORIDE 0.9% 100 ML IVPB SCH ×2 (00:23→08:22)
[2022-09-13] MEDS: prednisoLONE ACETATE 1% OPHTH DROPS 5 ML BTL LEFT EYE SCH ×12 (00:25→23:11)
[2022-09-13] MEDS: VANCOMYCIN 1,750 MG in SODIUM CHLORIDE 0.9% 500 ML 500 ML IVPB SCH (02:55)
[2022-09-13 06:04] LABS: Glucose,Whole Blood 153 mg/dL (70-110)
[2022-09-13 07:40] LABS: ALT 14 U/L (4-34); AST 15 U/L (14-36); African American GFR (CKD) >90 (>60 ml/min/1.73 sqM); Albumin 3.6 g/dL (3.5-5.0); Albumin/Globulin Ratio 1.3; Alkaline Phosphatase 59 U/L (38-126); Anion Gap 8 mmol/L; Blood Urea Nitrogen 13 mg/dL (7-17); C Reactive Protein 5.4 mg/dL (<1.0); Calcium 8.7 mg/dL (8.4-10.2); Carbon Dioxide 26 mmol/L (22-30); Chloride 106 mmol/L (98-107); Globulin 2.8 g/dL; Glucose 134 mg/dL (74-99); Non-African American GFR(CKD) 83 (>60 ml/min/1.73 sqM); Potassium 3.7 mmol/L (3.5-5.1); Sodium 140 mmol/L (137-145); Total Bilirubin 0.6 mg/dL (0.2-1.3); Total Protein 6.4 g/dL (6.3-8.2)
[2022-09-13] MEDS: CHLORTHALIDONE 25 MG TAB PO SCH (08:22)
[2022-09-13] MEDS: ENOXAPARIN 40 MG/0.4 ML SYRINGE SQ SCH (08:22)
[2022-09-13] MEDS: metFORMIN 500 MG TAB PO SCH ×2 (08:22→17:23)
[2022-09-13] MEDS: LOSARTAN 50 MG TAB PO SCH (08:22)
[2022-09-13] MEDS: ACETAMINOPHEN TAB 325 MG TAB PO SCH ×4 (08:22→21:00)
[2022-09-13] MEDS: METOPROLOL SUCCINATE (ER) 25 MG TAB.ER.24H PO SCH (08:23)
[2022-09-13] MEDS: INSULIN ASPART (NovoLOG) 100 UNIT/ML VIAL SQ SCH ×3 (08:37→17:16)
--- NOTE | 2022-09-13 11:15 | P.PN ---
Progress Note - Text 62-year-old white female diabetic patient has a Charcot foot foot patient came to the ER with history of 4 wound on the plantar aspect patient went to see the magazine worker he did the I&D according to the patient there was some serous fluid which was sent for culture and culture came back as a beta-hemolytic strep wound is a clean and and no localized tenderness or any abscess noted there is mild redness noted along the skin edges on the plantar aspect there is a chronic callus on the plantar aspect which has no drainage or redness today we have changed her dressing we'll use medihoney gel and patient is an IV antibiotic under care of infectious disease and has no pain no fever plan is change dressing daily nonweightbearing
[2022-09-13 11:46] LABS: Glucose,Whole Blood 92 mg/dL (70-110)
[2022-09-13] MEDS ORDERED: CHLORTHALIDONE 25 MG TAB PO ONE (14:30)
--- NOTE | 2022-09-13 15:12 | P.PN ---
Subjective 62-year-old pleasant female admitted for the left foot cellulitis and possible abscess patient has Charcot foot. Patient is presently on ceftezolin. Vascular surgery evaluated the patient patient is getting his CT of the left foot. Constitutional: Denied any fatigue denied any fever. Cardio vascular: denied any chest pain, palpitations Gastrointestinal denied any nausea vomiting Pulmonary: Denied any shortness of breath cough Neurologic denied any new focal deficits All inpatient medications were reviewed and appropriate changes in these m edications as dictated in the interval history and assessment and plan. PHYSICAL EXAMINATION: GENERAL: The patient is alert and oriented x3, not in any acute distress. Well developed, well nourished. HEENT: Pupils are round and equally reacting to light. EOMI. No scleral icterus. No conjunctival pallor. Normocephalic, atraumatic. No pharyngeal erythema. No thyromegaly. CARDIOVASCULAR: S1 and S2 present. No murmurs, rubs, or gallops. PULMONARY: Chest is clear to auscultation, no wheezing or crackles. ABDOMEN: Soft, nontender, nondistended, normoactive bowel sounds. No palpable organomegaly. MUSCULOSKELETAL: No joint swelling or deformity. EXTREMITIES: No cyanosis, clubbing, or pedal edema. NEUROLOGICAL: Gross neurological examination did not reveal any focal deficits. SKIN: Left foot significant deformity secondary to Neuropathy, has cellulitis on the plantar aspect with skin breakdown possible abscess Assessment and plan: -Infection, cellulitis, abscess of the left Charcot foot: Patient is an above- mentioned antibiotics vascular surgery evaluated the patient CT of the left foot -Obesity -Essential hypertension uncontrolled increase chlorthalidone add Norvasc - type 2 diabetes mellitus -Hyporthyroidism DVT prophylaxis: Lovenox Objective - Vital Signs Vital signs: Vital Signs Temp 98.1 F 09/13/22 12:00 Pulse 68 09/13/22 12:00 Resp 16 09/13/22 12:00 BP 195/92 09/13/22 08:00 Pulse Ox 97 09/13/22 12:00 FiO2 Intake & Output 09/12/22 09/13/22 09/13/22 18:59 06:59 18:59 Intake Total 200 Balance 200 Intake: Oral 200 Other: Voiding Method Toilet Bedside Commode # Voids 4 3 # Bowel Movements 0 - Labs CBC & Chem 7: 09/11/22 15:34 09/13/22 06:36 Labs: Abnormal Lab Results - Last 24 Hours (Table) 09/12/22 09/12/22 09/13/22 Range/Units 16:36 19:48 06:02 Glucose (74-99) mg/dL POC Glucose (mg/dL) 120 H 153 H 153 H (70-110) mg/dL C-Reactive Protein (<1.0) mg/dL 09/13/22 Range/Units 06:36 Glucose 134 H (74-99) mg/dL POC Glucose (mg/dL) (70-110) mg/dL C-Reactive Protein 5.4 H (<1.0) mg/dL Microbiology - Last 24 Hours (Table) 09/11/22 17:58 Gram Stain - Preliminary Foot - Left Wound Culture - Preliminary Beta Hemolytic Strep Group G 09/11/22 15:15 Blood Culture - Preliminary Blood No Growth after 24 hours 09/11/22 15:30 Blood Culture - Preliminary Blood No Growth after 24 hours
[2022-09-13] MEDS: amLODIPine 5 MG TAB PO SCH (15:34)
--- NOTE | 2022-09-13 15:43 | CT ---
EXAMINATION TYPE: CT foot LT w con DATE OF EXAM: 09/13/2022 COMPARISON: None HISTORY: Left foot pain. CT DLP: 305.2 mGycm Automated exposure control for dose reduction was used. CONTRAST: Performed with IV Contrast, patient injected with 100ml mL of Isovue 300. Images obtained from the mid tibia to the bottom of the foot with the IV contrast. There is narrowing of the ankle joint space. There is plantar and Achilles calcaneal spurring. There is pes planus defo rmity. There is sclerosis and joint space narrowing involving the tarsal metatarsal joints. There is cystic changes in the navicular bone. There is some mild lateral subluxation of the metatarsals. The toes are intact. No acute fracture seen. There is skin thickening and increased density in the subcut aneous tissues on the plantar aspect of the midfoot. Pes planus deformity. 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 No acute fracture seen. Calcaneal spurring. Pe s planus deformity. No focal bone destruction seen to suggest osteomyelitis. Neuropathic arthropathy is possible.
[2022-09-13 16:58] LABS: Glucose,Whole Blood 114 mg/dL (70-110)
[2022-09-13] MEDS: SODIUM CHLORIDE 0.9% 1,000 ML IV SCH (18:41)
[2022-09-13 20:37] LABS: Glucose,Whole Blood 134 mg/dL (70-110)
[2022-09-14] MEDS: prednisoLONE ACETATE 1% OPHTH DROPS 5 ML BTL LEFT EYE SCH ×10 (01:24→21:17)
[2022-09-14 06:20] LABS: Glucose,Whole Blood 156 mg/dL (70-110)
[2022-09-14] MEDS: INSULIN ASPART (NovoLOG) 100 UNIT/ML VIAL SQ SCH ×3 (06:32→16:57)
[2022-09-14] MEDS: metFORMIN 500 MG TAB PO SCH ×2 (06:32→17:02)
[2022-09-14] MEDS ORDERED: VANCOMYCIN TROUGH DUE 1 EACH MISC MISCELLANE ONE (09:00)
[2022-09-14] MEDS: CHLORTHALIDONE 25 MG TAB PO SCH (09:12)
[2022-09-14] MEDS: ENOXAPARIN 40 MG/0.4 ML SYRINGE SQ SCH (09:12)
[2022-09-14] MEDS: ACETAMINOPHEN TAB 325 MG TAB PO SCH ×6 (09:13→21:16)
[2022-09-14] MEDS: amLODIPine 5 MG TAB PO SCH (09:13)
[2022-09-14] MEDS: LOSARTAN 50 MG TAB PO SCH (09:13)
[2022-09-14] MEDS: DOCUSATE 100 MG CAP PO SCH ×2 (09:38→21:16)
[2022-09-14] MEDS: LORATADINE 10 MG TAB PO SCH (09:38)
[2022-09-14 11:41] LABS: Glucose,Whole Blood 110 mg/dL (70-110)
[2022-09-14] MEDS ORDERED: hydrALAZINE HCL 20 MG/ML 1 ML VIAL IVP PRN (11:47)
--- NOTE | 2022-09-14 13:47 | P.PN ---
Subjective Progress Note Date: 09/13/22 Principal diagnosis: Left diabetic foot infection Patient is a 62-year-old female with a past medical history significant for diabetes mellitus with peripheral neuropathy patient did have a left Charcot foot, hypertension and asthma, presented to the hospital with left foot swelling and redness and evidence of cellulitis x-rays of the foot did show severe Charcot arthropathy but no evidence of ostial myelitis patient did have multiple antibiotic ALLERGIES. Patient was evaluated by vascular surgery recommending no surgical drainage On today's evaluation that is 09/13/2022 , the patient denies having any fever or any chills, patient did have occasional pain to the left foot but denies significant pain because of underlying neuropathy or chest pain shortness of breath or cough Objective - Vital Signs Vital signs: Vital Signs Temp 98.0 F 09/13/22 08:00 Pulse 64 09/13/22 08:00 Resp 16 09/13/22 08:00 BP 195/92 09/13/22 08:00 Pulse Ox 96 09/13/22 08:00 FiO2 Intake & Output 09/12/22 09/13/22 09/13/22 18:59 06:59 18:59 Other: Voiding Method Toilet Bedside Commode # Voids 4 3 # Bowel Movements 0 - Exam GENERAL DESCRIPTION: Middle-age female lying in bed in no distress RESPIRATORY SYSTEM: Unlabored breathing , decreased breath sounds at bases HEART: S1 S2 regular rate and rhythm , ABDOMEN: Soft , no tenderness EXTREMITIES: Left foot is currently dressed no drainage on the dressing - Labs CBC & Chem 7: 09/11/22 15:34 09/13/22 06:36 Labs: Abnormal Lab Results - Last 24 Hours (Table) 09/12/22 09/12/22 09/13/22 Range/Units 16:36 19:48 06:02 Glucose (74-99) mg/dL POC Glucose (mg/dL) 120 H 153 H 153 H (70-110) mg/dL C-Reactive Protein (<1.0) mg/dL 09/13/22 Range/Units 06:36 Glucose 134 H (74-99) mg/dL POC Glucose (mg/dL) (70-110) mg/dL C-Reactive Protein 5.4 H (<1.0) mg/dL Microbiology - Last 24 Hours (Table) 09/11/22 17:58 Gram Stain - Preliminary Foot - Left Wound Culture - Preliminary Beta Hemolytic Strep Group G 09/11/22 15:15 Blood Culture - Preliminary Blood No Growth after 24 hours 09/11/22 15:30 Blood Culture - Preliminary Blood No Growth after 24 hours Assessment and Plan (1) Diabetic foot infection Current Visit: Yes Status: Acute Code(s): E11.628 - TYPE 2 DIABETES MELLITUS WITH OTHER SKIN COMPLICATIONS; L08.9 - LOCAL INFECTION OF THE SKIN AND SUBCUTANEOUS TISSUE, UNSP SNOMED Code(s): 316143552 Plan: 1patient with a left diabetic foot infection in this patient with evidence of possible abscess clinically as she did have a significant fluctuation and redness and will need to cover for the polymicrobial karen usually associated with diabetic foot infection. 2Patient with multiple antibiotic ALLERGIES that would limit the number of antibiotic safe to use 3- patient was evaluated by vascular surgery recommending no surgical drainage 4. A CT of the foot to make sure no evidence of any drainable abscess. 5local cultures currently growing strep we will discontinue cefepime and vancomycin and start the patient on cefazolin Time with Patient: Less than 30
--- NOTE | 2022-09-14 13:49 | P.PN ---
Subjective Progress Note Date: 09/14/22 Principal diagnosis: Left diabetic foot infection Patient is a 62-year-old female with a past medical history significant for diabetes mellitus with peripheral neuropathy patient did have a left Charcot foot, hypertension and asthma, presented to the hospital with left foot swelling and redness and evidence of cellulitis x-rays of the foot did show severe Charcot arthropathy but no evidence of ostial myelitis patient did have multiple antibiotic ALLERGIES. Patient was evaluated by vascular surgery recommending no surgical drainage On today's evaluation that is 09/14/2022 , the patient remains to be afebrile, patient denies chest pain shortness of breath or cough no nausea no vomiting no abdominal pain no diarrhea and denies pain to the left foot or any drainage Objective - Vital Signs Vital signs: Vital Signs Temp 99.5 F 09/14/22 08:00 Pulse 69 09/14/22 08:00 Resp 16 09/14/22 08:00 BP 208/81 09/14/22 08:00 Pulse Ox 93 L 09/14/22 08:00 FiO2 Intake & Output 09/13/22 09/14/22 09/14/22 18:59 06:59 18:59 Intake Total 200 Balance 200 Intake: Oral 200 Other: Voiding Method Bedside Commode # Voids 4 1 - Exam GENERAL DESCRIPTION: Middle-age female lying in bed in no distress RESPIRATORY SYSTEM: Unlabored breathing , decreased breath sounds at bases HEART: S1 S2 regular rate and rhythm , ABDOMEN: Soft , no tenderness EXTREMITIES: Left foot is currently dressed no drainage on the dressing - Labs CBC & Chem 7: 09/11/22 15:34 09/13/22 06:36 Labs: Abnormal Lab Results - Last 24 Hours (Table) 09/13/22 09/13/22 09/14/22 Range/Units 16:53 20:35 06:18 POC Glucose (mg/dL) 114 H 134 H 156 H (70-110) mg/dL Microbiology - Last 24 Hours (Table) 09/11/22 15:15 Blood Culture - Preliminary Blood No Growth after 48 hours 09/11/22 15:30 Blood Culture - Preliminary Blood No Growth after 48 hours 09/11/22 17:58 Gram Stain - Preliminary Foot - Left Wound Culture - Preliminary Beta Hemolytic Strep Group G Assessment and Plan (1) Diabetic foot infection Current Visit: Yes Status: Acute Code(s): E11.628 - TYPE 2 DIABETES MELLITUS WITH OTHER SKIN COMPLICATIONS; L08.9 - LOCAL INFECTION OF THE SKIN AND SUBCUTANEOUS TISSUE, UNSP SNOMED Code(s): 492487471 Plan: 1patient with a left diabetic foot infection in this patient with evidence of possible abscess clinically as she did have a significant fluctuation and redness and will need to cover for the polymicrobial karen usually associated with diabetic foot infection. 2Patient with multiple antibiotic ALLERGIES that would limit the number of antibiotic safe to use 3- patient was evaluated by vascular surgery recommending no surgical drainage 4. A CT of the foot did not show evidence of any drainable abscess. 5local cultures did grew beta-hemolytic strep group G patient to continue with the cefazolin keeping in mind extensive infection she will benefit from a PICC line and outpatient IV antibiotics on discharge Time with Patient: Less than 30
--- NOTE | 2022-09-14 14:15 | P.PN ---
Subjective 62-year-old pleasant female admitted for the left foot cellulitis and possible abscess patient has Charcot foot. Patient is presently on ceftezolin. Vascular surgery evaluated the patient patient is getting his CT of the left foot. 09/14/[address] of the left lower x-ray which did not show any abscess. Patient will get a PICC line and IV antibiotics as recommended by infectious disease there is no evidence of osteomyelitis and the computed tomography scan. Physical therapy and occupational therapy evaluation today. Constitutional: Denied any fatigue denied any fever. Cardio vascular: denied any chest pain, palpitations Gastrointestinal denied any nausea vomiting Pulmonary: Denied any shortness of breath cough Neurologic denied any new focal deficits All inpatient medications were reviewed and appropriate changes in these medications as dictated in the interval history and assessment and plan. PHYSICAL EXAMINATION: GENERAL: The patient is alert and oriented x3, not in any acute distress. Well developed, well nourished. HEENT: Pupils are round and equally reacting to light. EOMI. No scleral icterus. No conjunctival pallor. Normocephalic, atraumatic. No pharyngeal erythema. No thyromegaly. CARDIOVASCULAR: S1 and S2 present. No murmurs, rubs, or gallops. PULMONARY: Chest is clear to auscultation, no wheezing or crackles. ABDOMEN: Soft, nontender, nondistended, normoactive bowel sounds. No palpable organomegaly. MUSCULOSKELETAL: No joint swelling or deformity. EXTREMITIES: No cyanosis, clubbing, or pedal edema. NEUROLOGICAL: Gross neurological examination did not reveal any focal deficits. SKIN: Left foot significant deformity secondary to Neuropathy, has cellulitis on the plantar aspect with skin breakdown possible abscess Assessment and plan: -Infection, cellulitis, abscess of the left Charcot foot: Patient is an above- mentioned antibiotics vascular surgery evaluated , CT of the fluid did not show any abscess patient is on ceftezolin -Obesity -Essential hypertension uncontrolled increase chlorthalidone add Norvasc - type 2 diabetes mellitus -Hyporthyroidism DVT prophylaxis: Lovenox Objective - Vital Signs Vital signs: Vital Signs Temp 99.5 F 09/14/22 08:00 Pulse 69 09/14/22 08:00 Resp 16 09/14/22 08:00 BP 208/81 09/14/22 08:00 Pulse Ox 93 L 09/14/22 08:00 FiO2 Intake & Output 09/13/22 09/14/22 09/14/22 18:59 06:59 18:59 Intake Total 200 Balance 200 Intake: Oral 200 Other: Voiding Method Bedside Commode # Voids 4 1 - Labs CBC & Chem 7: 09/11/22 15:34 09/13/22 06:36 Labs: Abnormal Lab Results - Last 24 Hours (Table) 09/13/22 09/13/22 09/14/22 Range/Units 16:53 20:35 06:18 POC Glucose (mg/dL) 114 H 134 H 156 H (70-110) mg/dL Microbiology - Last 24 Hours (Table) 09/11/22 17:58 Gram Stain - Final Foot - Left Wound Culture - Final Beta Hemolytic Strep Group G 09/11/22 15:15 Blood Culture - Preliminary Blood No Growth after 48 hours 09/11/22 15:30 Blood Culture - Preliminary Blood No Growth after 48 hours
[2022-09-14 16:14] LABS: Glucose,Whole Blood 129 mg/dL (70-110)
[2022-09-14] MEDS: SODIUM CHLORIDE 0.9% 1,000 ML IV SCH (17:03)
[2022-09-14 21:05] LABS: Glucose,Whole Blood 120 mg/dL (70-110)
[2022-09-15] MEDS: prednisoLONE ACETATE 1% OPHTH DROPS 5 ML BTL LEFT EYE SCH ×7 (00:14→15:31)
[2022-09-15 05:48] LABS: Glucose,Whole Blood 128 mg/dL (70-110)
[2022-09-15] MEDS: INSULIN ASPART (NovoLOG) 100 UNIT/ML VIAL SQ SCH ×2 (06:24→11:57)
[2022-09-15] MEDS: ACETAMINOPHEN TAB 325 MG TAB PO SCH ×2 (07:15→12:50)
[2022-09-15] MEDS: LOSARTAN 50 MG TAB PO SCH (07:15)
[2022-09-15] MEDS: metFORMIN 500 MG TAB PO SCH (07:15)
[2022-09-15] MEDS: DOCUSATE 100 MG CAP PO SCH (07:15)
[2022-09-15] MEDS: ENOXAPARIN 40 MG/0.4 ML SYRINGE SQ SCH (07:15)
[2022-09-15] MEDS: LORATADINE 10 MG TAB PO SCH (07:16)
[2022-09-15] MEDS: CHLORTHALIDONE 25 MG TAB PO SCH (07:16)
[2022-09-15] MEDS: amLODIPine 5 MG TAB PO SCH (07:16)
[2022-09-15 07:43] VITALS: PULSE 70; RESP 18; TEMP 98.4
[2022-09-15 11:54] LABS: Glucose,Whole Blood 100 mg/dL (70-110)
--- NOTE | 2022-09-15 12:22 | P.PN ---
Subjective Progress Note Date: 09/15/22 Principal diagnosis: Left diabetic foot infection Patient is a 62-year-old female with a past medical history significant for diabetes mellitus with peripheral neuropathy patient did have a left Charcot foot, hypertension and asthma, presented to the hospital with left foot swelling and redness and evidence of cellulitis x-rays of the foot did show severe Charcot arthropathy but no evidence of ostial myelitis patient did have multiple antibiotic ALLERGIES. Patient was evaluated by vascular surgery recommending no surgical drainage On today's evaluation that is 09/15/2022 , the patient continues to be afebrile, patient denies chest pain shortness of breath or cough, the patient denies nausea no vomiting no abdominal pain no diarrhea and denies pain to the left foot and no further drainage has been reported by the nursing staff Objective - Vital Signs Vital signs: Vital Signs Temp 98.4 F 09/15/22 07:05 Pulse 70 09/15/22 07:05 Resp 18 09/15/22 07:05 BP 213/76 09/15/22 07:05 Pulse Ox 95 09/15/22 07:05 FiO2 Intake & Output 09/14/22 09/15/22 09/15/22 18:59 06:59 18:59 Output Total 2200 Balance -2200 Output: Urine 2200 Other: Voiding Method Bedside Commode # Voids 4 # Bowel Movements 1 - Exam GENERAL DESCRIPTION: Middle-age female lying in bed in no distress RESPIRATORY SYSTEM: Unlabored breathing , decreased breath sounds at bases HEART: S1 S2 regular rate and rhythm , ABDOMEN: Soft , no tenderness EXTREMITIES: Left foot plantar swelling redness slightly decreased no drainage on the dressing - Labs CBC & Chem 7: 09/11/22 15:34 09/13/22 06:36 Labs: Abnormal Lab Results - Last 24 Hours (Table) 09/14/22 09/14/22 09/15/22 Range/Units 16:12 21:03 05:47 POC Glucose (mg/dL) 129 H 120 H 128 H (70-110) mg/dL Microbiology - Last 24 Hours (Table) 09/11/22 15:15 Blood Culture - Preliminary Blood No Growth after 72 hours 09/11/22 15:30 Blood Culture - Preliminary Blood No Growth after 72 hours 09/11/22 17:58 Gram Stain - Final Foot - Left Wound Culture - Final Beta Hemolytic Strep Group G Assessment and Plan (1) Diabetic foot infection Current Visit: Yes Status: Acute Code(s): E11.628 - TYPE 2 DIABETES MELLITUS WITH OTHER SKIN COMPLICATIONS; L08.9 - LOCAL INFECTION OF THE SKIN AND SUBCUTANEOUS TISSUE, UNSP SNOMED Code(s): 912752029 Plan: 1patient with a left diabetic foot infection in this patient with evidence of possible abscess clinically as she did have a significant fluctuation and redness and will need to cover for the polymicrobial karen usually associated with diabetic foot infection. 2Patient with multiple antibiotic ALLERGIES that would limit the number of antibiotic safe to use 3- patient was evaluated by vascular surgery recommending no surgical drainage 4. A CT of the foot did not show evidence of any drainable abscess. 5local cultures did grew beta-hemolytic strep group G, keeping in mind the patient did have extensive infection or Charcot deformity patient did got a PICC line, patient to continue with the cefazolin 2 g every 8 hours for at least 3-4 weeks depending upon clinical response patient has been encouraged to follow with her vocational ed instructor for custom offloading shoe for her Charcot deformity to decrease the pressure on the plantar aspect of that foot and help heal this infection, patient mentions she will follow with custom orthotics Time with Patient: Less than 30
[2022-09-15 13:33] VITALS: BP 166/82
[2022-09-15] MEDS ORDERED: LIDOCAINE 1% INJ 10MG/ML (5 ML VIAL-PF) SQ ONE (14:04)
--- NOTE | 2022-09-15 14:19 | IR ---
PICC LINE PLACEMENT: HISTORY: Infection requiring long-term antibiotic therapy PROCEDURE: Ultrasound and fluoroscopic guidance of PICC line placement. COMPLICATIONS: None ANESTHESIA: 1. 1% Lidocaine locally. FINDINGS/TECHNIQUE: The procedure was explained to the patient. The risks, complications, benefits and alternatives were discussed and any questions were answered. Informed consent was obtained. The patient was placed supine on the fluoroscopic table and prepped and draped in the usual sterile fash ion. Utilizing a 21 gauge needle and sonographic and fluoroscopic guidance, access in the left basi lic vein was achieved and there is placement of a 0.018 guidewire. The vein is patent. A 4-F sheath was placed over the guidewire. The guidewire and dilator were removed and a 4-F. PICC line was plac ed through the sheath with the tip at the level of the SVC. The sheath was removed, the catheter was flushed and sutured into position. The patient was stable throughout the procedure and remained sta ble upon discharge from the Department of Radiology. The vein puncture was patent under ultrasound. A christina scale image was obtained to document patency of the vein punctured. All elements of the maximal barrier technique were utilized. FLUOROSCOPY TIME: 0.1 minutes and 1 images submitted IMPRESSION: Successful PICC line placement under ultrasound and fluoroscopic guidance.
--- NOTE | 2022-09-15 15:04 | P.PN ---
Progress Note - Text 62-year-old white female history of diabetes history of Charcot foot patient came with the wound on the plantar aspect the left foot patient had a computed tomography scan of the foot there was no abscess no osteo-mellitus wound was treated with IV antibiotic under care of infectious disease and local wound care there is no discharge noted there is a we'll wound on the plantar aspect we will continue with local wound care patient wants will follow up in the wound clinic on Thursday
[2022-09-16 07:52] VITALS: BMI 42.5
[2022-09-17] MEDS ORDERED: ERGOCALCIFEROL 1,250 MCG (50,000 IU) CAPSULE PO SCH (09:00)
--- NOTE | 2022-09-17 15:33 | P.DS ---
Providers Date of admission: 09/11/22 18:05 Expected date of discharge: 09/15/22 Attending physician: Sammy Mojica Consults: 09/11/22 18:25 Consult Physician Routine Consulting Provider: Burt Haley Consult Reason/Comments: Left foot diabetic ulcer Do you want consulting provider notified?: Yes 09/12/22 10:49 Consult Physician Routine Consulting Provider: Dereje Andersen Consult Reason/Comments: left foot abscess Do you want consulting provider notified?: Yes Primary care physician: Sammi Benitez Hospital Course: Final diagnosis Infection, cellulitis, of the left Charcot foot Morbid Obesity with a BMI of 42.5 Essential hypertension, uncontrolled Diabetes mellitus, type II Hypothyroidism DVT prophylaxis Discharge disposition Patient is being discharged in a stable condition with guarded prognosis to home with home care. Patient will follow-up with Dr. Sammi Benitez in the outpatient setting upon discharge. Patient is to also follow-up at the wound care center with infectious disease and also Dr. Haley as scheduled. Patient is being maintained on oral clindamycin along with IV antibiotics per ID recommendations and has received a PICC line. Total time taken is greater than 35 minutes. Hospital course This is a 62-year-old female who was recently admitted with worsening infection with cellulitis of the left foot with also significant history of Charcot foot with multiple medical consultations following. Patient follows with Dr. Haley outpatient and will need outpatient follow-up closely with infectious disease as well. Patient has received a PICC line and will be continuing on IV antibiotics along with oral antibiotics on discharge as wound culture showing beta-hemolytic strep group G and blood cultures have remained negative. Recommend continue with local wound care and is being arranged for home care in the outpatient setting. Currently no reports of chest pain, shortness of breath, or palpitations. Patient is afebrile. No reports of nausea or vomiting and patient is tolerating diet. Patient will be discharged home today. Physical exam: Gen: This is a 62-year-old female who is awake, alert and oriented 3, well-de veloped, well-nourished, morbidly obese HEENT: Head is atraumatic, normocephalic. Pupils equal, round. Sclerae is anicteric. NECK: Supple. No JVD. No lymphadenopathy. No thyromegaly. LUNGS: Clear to auscultation. No wheezes or rhonchi. No intercostal retractions. HEART: Regular rate and rhythm. No murmur. ABDOMEN: Soft. Bowel sounds are present. No masses. No tenderness. EXTREMITIES: Left foot currently wrapped with Kerlix and dry and intact. No calf tenderness. NEUROLOGICAL: Patient is awake, alert and oriented x3. Cranial nerves 2 through 12 are grossly intact. Please refer to medication reconciliation sheet for a list of medications. The impression and plan of care has been dictated by Blank Casey, Nurse Practitioner as directed. MD Giovanni I have performed a history and examination and MDM of this patient, discussed the same with the dictator, and agree with the dictator's assessment and plan as written ,documented as a scribe. Based on total visit time, I have performed more than 50% of the visit. Patient Condition at Discharge: Good Plan - Discharge Summary Discharge Rx Participant: No New Discharge Prescriptions: New clindamycin HCL 300 mg PO QID #28 capsule Docusate [Colace] 100 mg PO BID #30 cap Chlorthalidone [Hygroton] 50 mg PO DAILY 30 Days #60 tab amLODIPine [Norvasc] 5 mg PO DAILY 30 Days #30 tab Calcium Carbonate [Tums] 1,000 mg PO Q4HR PRN tab PRN Reason: Dyspepsia Continue Loratadine [Claritin] 10 mg PO DAILY Losartan Potassium [Cozaar] 100 mg PO DAILY Ergocalciferol (Vitamin D2) [Drisdol (50,000 Iu)] 1,250 mcg PO WE prednisoLONE acetate [Pred Mild] 1 drop LEFT EYE BID Acetaminophen [Tylenol Arthritis] 650 mg PO QID metFORMIN HCL 1,000 mg PO BID-W/MEALS Discontinued Metoprolol Succinate [Metoprolol Succinate ER] 12.5 mg PO DAILY Chlorthalidone [Hygroton] 25 mg PO DAILY Discharge Medication List Acetaminophen [Tylenol Arthritis] 650 mg PO QID 09/11/22 [History] Ergocalciferol (Vitamin D2) [Drisdol (50,000 Iu)] 1,250 mcg PO WE 09/11/22 [History] Loratadine [Claritin] 10 mg PO DAILY 09/11/22 [History] Losartan Potassium [Cozaar] 100 mg PO DAILY 09/11/22 [History] clindamycin HCL 300 mg PO QID #28 capsule 09/11/22 [Rx] metFORMIN HCL 1,000 mg PO BID-W/MEALS 09/11/22 [History] prednisoLONE acetate [Pred Mild] 1 drop LEFT EYE BID 09/11/22 [History] Calcium Carbonate [Tums] 1,000 mg PO Q4HR PRN tab 09/15/22 [Rx] Chlorthalidone [Hygroton] 50 mg PO DAILY 30 Days #60 tab 09/15/22 [Rx] Docusate [Colace] 100 mg PO BID #30 cap 09/15/22 [Rx] amLODIPine [Norvasc] 5 mg PO DAILY 30 Days #30 tab 09/15/22 [Rx] Follow up Appointment(s)/Referral(s): Sammi Benitez DO [Primary Care Provider] - 1-2 days (Office is closed at time of discharge please call for appointment) [facility] [NON-STAFF] - As Needed ([facility] will deliver antibiotic supplies to your house tonight or tomorrow morning. They will call before delivery. ) [facility] [NON-STAFF] - 09/22/22 12:45 pm Dereje Andersen MD [STAFF PHYSICIAN] - 09/29/22 2:00 pm [facility], [NON-STAFF] - As Needed ([facility] will call you to schedule your visits for home care nursing to begin wound care and IV antibiotic teaching. Your first visit will be early on 09/16/22. ) Patient Instructions/Handouts: Diabetic Foot Ulcers (ED) Activity/Diet/Wound Care/Special Instructions: Activity Limited until follow-up Follow-up with primary care provider on discharge to discuss blood pressure and diabetes management Continue taking medications as prescribed Follow-up with infectious disease outpatient Recommend monitor blood pressure and keep a diary of blood pressure readings and bring them with you to your follow-up appointments Discharge Disposition: HOME WITH HOME HEALTH SERVICES
== END 2022-09-15 15:40 | disposition home health service (06) | DRG 638 ==
LOC: EC 14:34 → 4SSUR 18:05
PROVIDERS: ADMIT Hospitalist; ATTEND Hospitalist
PROC: 02HV33Z Insertion of Infusion Device into Superior Vena Cava, Percutaneous Approach (ICD-10-PCS; principal; 2022-09-15 09:25)
DX: E11.628 Type 2 diabetes mellitus with other skin complications (principal); L03.116 Cellulitis of left lower limb; Z68.41 Body mass index [BMI] 40.0-44.9, adult; L97.429 Non-pressure chronic ulcer of left heel and midfoot with unspecified severity; E11.610 Type 2 diabetes mellitus with diabetic neuropathic arthropathy; E11.621 Type 2 diabetes mellitus with foot ulcer; E11.42 Type 2 diabetes mellitus with diabetic polyneuropathy; B95.4 Other streptococcus as the cause of diseases classified elsewhere; E03.9 Hypothyroidism, unspecified; Z28.310 Unvaccinated for COVID-19; E66.9 Obesity, unspecified; I10 Essential (primary) hypertension; J45.909 Unspecified asthma, uncomplicated; F41.9 Anxiety disorder, unspecified; G47.00 Insomnia, unspecified; K59.00 Constipation, unspecified; H40.9 Unspecified glaucoma; L84 Corns and callosities; Z79.84 Long term (current) use of oral hypoglycemic drugs; Z79.899 Other long term (current) drug therapy; Z88.0 Allergy status to penicillin; Z88.6 Allergy status to analgesic agent; Z88.1 Allergy status to other antibiotic agents; Z88.5 Allergy status to narcotic agent; Z88.2 Allergy status to sulfonamides; Z88.8 Allergy status to other drugs, medicaments and biological substances
CPT/HCPCS: 36415; 36573; 80053; 82009; 84145; 85025; 85652; 86140; 87040; 87070; 87205; 96365; 96367; 99284

== ENCOUNTER 2023-08-07 13:17 | Emergency (ER) | payer BC ==
--- NOTE | 2023-08-07 13:44 | ED ---
General Adult HPI - General Chief complaint: Recheck/Abnormal Lab/Rx Stated complaint: Lt foot hardware malfunction Time Seen by Provider: 08/07/23 13:27 Source: patient, EMS, RN notes reviewed Mode of arrival: EMS Limitations: no limitations - History of Present Illness Initial comments: Patient is a pleasant [age]-year-old female presenting to the emergency department with concern for possible hilar malfunction. Patient has history of Charcot foot with fracture. Patient did have extensive surgery at [facility] to help realign her bones. Patient does have external fixation device. Asians dates one of the screws fell off and one of the posts that holds the device in place did move. Patient denies any pain or changes otherwise. Post was put back in position by EMS however they did not attach the nut. - Related Data Home Medications Medication Instructions Recorded Confirmed Acetaminophen [Tylenol Arthritis] 650 mg PO Q6H PRN 09/11/22 08/07/23 Ergocalciferol (Vitamin D2) 1,250 mcg PO WE 09/11/22 08/07/23 [Drisdol (50,000 Iu)] Loratadine [Claritin] 10 mg PO DAILY 09/11/22 08/07/23 metFORMIN HCL 1,000 mg PO BID 09/11/22 08/07/23 prednisoLONE acetate [Pred Mild] 1 drop LEFT EYE QID 09/11/22 08/07/23 Albuterol Sulfate [Albuterol 1 puff PO RT-Q6H PRN 08/07/23 08/07/23 Sulfate Hfa] Apixaban [Eliquis] 2.5 mg PO BID 08/07/23 08/07/23 Chlorthalidone [Hygroton] 25 mg PO DAILY 08/07/23 08/07/23 Enalapril [Vasotec] 10 mg PO DAILY@0600 08/07/23 08/07/23 HYDROcodone/APAP 5-325MG [[place] 1 tab PO Q4HR PRN 08/07/23 08/07/23 5-325] Zinc Gluconate [Zinc] 50 mg PO BID 08/07/23 08/07/23 hydrALAZINE HCL [Apresoline] 50 mg PO TID PRN 08/07/23 08/07/23 Previous Rx's Medication Instructions Recorded amLODIPine [Norvasc] 5 mg PO DAILY 30 Days #30 tab 09/15/22 Allergies Allergy/AdvReac Type Severity Reaction Status Date / Time ampicillin Allergy Rash/Hives Verified 08/07/23 15:04 aspirin Allergy Rash/Hives Verified 08/07/23 15:04 atropine Allergy Unknown Verified 08/07/23 15:04 ciprofloxacin [From Cipro] Allergy Rash/Hives Verified 08/07/23 15:04 codeine Allergy Vomiting Verified 08/07/23 15:04 epinephrine [From EpiPen] Allergy Rash/Hives Verified 08/07/23 15:04 morphine Allergy Unknown Verified 08/07/23 15:04 Sulfa (Sulfonamide Allergy Rash/Hives Verified 08/07/23 15:04 Antibiotics) Review of Systems ROS Statement: Those systems with pertinent positive or pertinent negative responses have been documented in the HPI. ROS Other: All systems not noted in ROS Statement are negative. Constitutional: Denies: fever Eyes: Denies: eye pain Respiratory: Denies: cough Cardiovascular: Denies: chest pain Gastrointestinal: Denies: abdominal pain Skin: Denies: rash Neurological: Denies: weakness Past Medical History Past Medical History: Asthma, Diabetes Mellitus, Hypertension, Thyroid Disorder Additional Past Medical History / Comment(s): pressure in eye History of Any Multi-Drug Resistant Organisms: None Reported Past Surgical History: Orthopedic Surgery Past Psychological History: No Psychological Hx Reported Smoking Status: Never smoker Past Alcohol Use History: Rare Past Drug Use History: None Reported General Exam Limitations: no limitations General appearance: alert, in no apparent distress Head exam: Present: normocephalic Eye exam: Present: normal appearance Respiratory exam: Present: normal lung sounds bilaterally Cardiovascular Exam: Present: regular rate, normal rhythm GI/Abdominal exam: Present: soft. Absent: tenderness Extremities exam: Present: other (Left Foot with diffuse Swelling. There is extensive external fixation device with several areas entering the foot.) Neurological exam: Present: alert. Absent: motor sensory deficit Psychiatric exam: Present: normal affect, normal mood Skin exam: Present: normal color Course Vital Signs 08/07/23 08/07/23 08/07/23 13:20 13:30 14:00 Temperature 97.9 F Pulse Rate 71 Respiratory 18 18 18 Rate Blood Pressure 142/58 142/58 141/52 O2 Sat by Pulse 95 96 94 L Oximetry 08/07/23 08/07/23 08/07/23 14:30 15:00 15:30 Temperature Pulse Rate Respiratory 18 18 18 Rate Blood Pressure 162/66 173/66 159/56 O2 Sat by Pulse 93 L 93 L 98 Oximetry 08/07/23 16:00 Temperature Pulse Rate Respiratory 18 Rate Blood Pressure 173/82 O2 Sat by Pulse 97 Oximetry Medical Decision Making - Medical Decision Making Nut was easily attached to the bolt without any difficulty. Was pt. sent in by a medical professional or institution (, RADHA, IOS ARCHITECT, urgent care, hospital, or usp...) When possible be specific @ -Patient was sent from nursing facility Did you speak to anyone other than the patient for history (EMS, parent, family, police, friend...)? What history was obtained from this source @ -No Did you review nursing and triage notes (agree or disagree)? Why? @ -I reviewed and agree with nursing and triage notes Were old charts reviewed (outside hosp., previous admission, EMS record, old EKG, old radiological studies, urgent care reports/EKG's, usp records)? Report findings @ -No old charts were reviewed Differential Diagnosis (chest pain, altered mental status, abdominal pain women, abdominal pain men, vaginal bleeding, weakness, fever, dyspnea, syncope, headache, dizziness, GI bleed, back pain, seizure, CVA, palpatations, mental health, musculoskeletal)? @ -Differential Musculoskeletal Muscular strain, contusion, ligament sprain, fracture, arthritis, septic arthritis, bursitis, cellulitis, muscle spasm, nerve compression, DVT, arterial occlusion, herpes zoster, electrolyte abnormality, tumor.... This is not meant to be in all inclusive list EKG interpreted by me (3pts min.). @ -As above X-rays interpreted by me (1pt min.). @ -Left foot x-ray is limited secondary to hardware. No obvious acute abnormality. CT interpreted by me (1pt min.). @ -None done U/S interpreted by me (1pt. min.). @ -None done What testing was considered but not performed or refused? (CT, X-rays, U/S, labs)? Why? @ -None What meds were considered but not given or refused? Why? @ -None Did you discuss the management of the patient with other professionals (professionals i.e. , RADHA, IOS ARCHITECT, lab, RT, psych nurse, aids social worker, tablet making machine operator helper, teacher, fare enforcement officer, binder caser)? Give summary @ -Case was discussed with Salima/Rani GARCIA with Dr. Scales whom feel it is okay for discharge and follow-up with them. Was smoking cessation discussed for >3mins.? @ -No Was critical care preformed (if so, how long)? @ -No Were there social determinants of health that impacted care today? How? (Homelessness, low income, unemployed, alcoholism, drug addiction, transportation, low edu. Level, literacy, decrease access to med. care, alf, rehab)? @ -No Was there de-escalation of care discussed even if they declined (Discuss DNR or withdrawal of care, Hospice)? DNR status @ -No What co-morbidities impacted this encounter? (DM, HTN, Smoking, COPD, CAD, Cancer, CVA, ARF, Chemo, Hep., AIDS, mental health diagnosis, sleep apnea, morbid obesity)? @ -None Was patient admitted / discharged? Hospital course, mention meds given and route, prescriptions, significant lab abnormalities, going to OR and other pertinent info. @ -Patient presents with loose hardware. This is reattached. Patient will be discharged to follow-up with orthopedic doctor. Undiagnosed new problem with uncertain prognosis? @ -No Drug Therapy requiring intensive monitoring for toxicity (Heparin, Nitro, Insulin, Cardizem)? @ -No Were any procedures done? @ -No Diagnosis/symptom? @ -Hardware malfunction left foot Acute, or Chronic, or Acute on Chronic? @ -Acute Uncomplicated (without systemic symptoms) or Complicated (systemic symptoms)? @ -default Side effects of treatment? @ -No Exacerbation, Progression, or Severe Exacerbation? @ -No Poses a threat to life or bodily function? How? (Chest pain, [place], [place], pneumonia, PE, COPD, DKA, ARF, appy, cholecystitis, CVA, Diverticulitis, Homicidal, Suicidal, threat to staff... and all critical care pts) @ -No Disposition Clinical Impression: Hardware failure Disposition: HOME SELF-CARE Condition: Stable Additional Instructions: Please do follow-up with your orthopedic doctor in the next day or 2 for recheck. Return for increased pain, swelling, worsening or change in symptoms or any other concerns. Is patient prescribed a controlled substance at d/c from ED?: No Referrals: Sammi Benitez DO [Primary Care Provider] - 1-2 days Time of Disposition: 16:18
[2023-08-07 13:51] VITALS: RESP 18; TEMP 97.9
--- NOTE | 2023-08-07 14:10 | XR ---
Left foot. HISTORY: Checking for hardware placement TECHNIQUE: 3 views left foot were obtained. FINDINGS: Hardware obscures the osseous structures severely limiting the study. IMPRESSION: As stated above.
[2023-08-07 16:58] VITALS: BP 167/76; PULSE 88
== END 2023-08-07 18:33 | disposition home or self-care (01) ==
LOC: EC 13:17
DX: T84.293A Other mechanical complication of internal fixation device of bones of foot and toes, initial encounter (principal); J45.909 Unspecified asthma, uncomplicated; E11.9 Type 2 diabetes mellitus without complications; I10 Essential (primary) hypertension; Z79.84 Long term (current) use of oral hypoglycemic drugs; Z79.899 Other long term (current) drug therapy; Z88.0 Allergy status to penicillin; Z88.5 Allergy status to narcotic agent; Z88.2 Allergy status to sulfonamides; Z88.6 Allergy status to analgesic agent; Z88.8 Allergy status to other drugs, medicaments and biological substances; Z88.1 Allergy status to other antibiotic agents
CPT/HCPCS: 99284

== ENCOUNTER 2024-09-25 15:37 | Inpatient (IN) | payer BC ==
--- NOTE | 2024-09-25 16:09 | ED ---
Nausea/Vomiting/Diarrhea HPI - General Chief complaint: Nausea/Vomiting/Diarrhea Stated complaint: Vommiting since thursday Time Seen by Provider: 09/25/24 15:58 Source: patient, RN notes reviewed Mode of arrival: ambulatory Limitations: no limitations - History of Present Illness Initial comments: This is a 64-year-old female who presents to the emergency department for nausea and vomiting. Patient states that it started 6 days ago. She initially thought she was getting a UTI as she was experiencing a lot of dysuria. However, that has since resolved. She does report feeling constipated, but tried taking laxatives. Denies any abdominal pain, states that she is just sore from all of the retching and feels very bloated. She did start to develop fevers 2 days ago as well. Denies any URI symptoms or sick contacts. MD complaint: nausea, vomiting - Related Data Home Medications Medication Instructions Recorded Confirmed Acetaminophen [Tylenol Arthritis] 650 mg PO Q6H PRN 09/11/22 08/07/23 Ergocalciferol (Vitamin D2) 1,250 mcg PO WE 09/11/22 08/07/23 [Drisdol (50,000 Iu)] Loratadine [Claritin] 10 mg PO DAILY 09/11/22 08/07/23 metFORMIN HCL 1,000 mg PO BID 09/11/22 08/07/23 prednisoLONE acetate [Pred Mild] 1 drop LEFT EYE QID 09/11/22 08/07/23 Albuterol Sulfate [Albuterol 1 puff PO RT-Q6H PRN 08/07/23 08/07/23 Sulfate Hfa] Apixaban [Eliquis] 2.5 mg PO BID 08/07/23 08/07/23 Chlorthalidone [Hygroton] 25 mg PO DAILY 08/07/23 08/07/23 Enalapril [Vasotec] 10 mg PO DAILY@0600 08/07/23 08/07/23 HYDROcodone/APAP 5-325MG [[place] 1 tab PO Q4HR PRN 08/07/23 08/07/23 5-325] Zinc Gluconate [Zinc] 50 mg PO BID 08/07/23 08/07/23 hydrALAZINE HCL [Apresoline] 50 mg PO TID PRN 08/07/23 08/07/23 Previous Rx's Medication Instructions Recorded amLODIPine [Norvasc] 5 mg PO DAILY 30 Days #30 tab 09/15/22 Allergies Allergy/AdvReac Type Severity Reaction Status Date / Time ampicillin Allergy Rash/Hives Verified 08/07/23 15:04 aspirin Allergy Rash/Hives Verified 08/07/23 15:04 atropine Allergy Unknown Verified 08/07/23 15:04 ciprofloxacin [From Cipro] Allergy Rash/Hives Verified 08/07/23 15:04 codeine Allergy Vomiting Verified 08/07/23 15:04 epinephrine [From EpiPen] Allergy Rash/Hives Verified 08/07/23 15:04 hydrochlorothiazide Allergy Unknown Verified 09/25/24 15:42 morphine Allergy Unknown Verified 08/07/23 15:04 Sulfa (Sulfonamide Allergy Rash/Hives Verified 08/07/23 15:04 Antibiotics) Review of Systems ROS Statement: Those systems with pertinent positive or pertinent negative responses have been documented in the HPI. ROS Other: All systems not noted in ROS Statement are negative. Past Medical History Past Medical History: Asthma, Diabetes Mellitus, Hypertension, Thyroid Disorder Additional Past Medical History / Comment(s): pressure in eye History of Any Multi-Drug Resistant Organisms: None Reported Past Surgical History: Orthopedic Surgery Additional Past Surgical History / Comment(s): Cataract surgery with shut placed Past Psychological History: No Psychological Hx Reported Smoking Status: Never smoker Past Alcohol Use History: Rare Past Drug Use History: None Reported General Exam Limitations: no limitations General appearance: alert, in no apparent distress Head exam: Present: atraumatic, normocephalic, normal inspection Respiratory exam: Present: normal lung sounds bilaterally. Absent: respiratory distress, wheezes, rales, rhonchi, stridor Cardiovascular Exam: Present: regular rate, normal rhythm GI/Abdominal exam: Present: soft, normal bowel sounds. Absent: distended, tenderness, guarding, rebound, rigid Neurological exam: Present: alert, oriented X3, CN II-XII intact Psychiatric exam: Present: normal affect, normal mood Skin exam: Present: warm, dry, intact, normal color. Absent: rash Course Vital Signs 09/25/24 15:38 Temperature 100.1 F H Pulse Rate 96 Respiratory 18 Rate Blood Pressure 185/71 O2 Sat by Pulse 94 L Oximetry Medical Decision Making - Medical Decision Making This is a 64-year-old female who presents to the emergency department for nausea and vomiting. Was pt. sent in by a medical professional or institution? @ -No Did you speak to anyone other than the patient for history? @ -No Did you review nursing and triage notes? @ -Yes, and I agree, it is accurate with regards to the patient's symptoms. Were old charts reviewed? @ -No Differential Diagnosis? @ -Differential Nausea and Vomiting: Gastroenteritis, cholecystitis, appendicitis, pancreatitis, migraine, benign positional vertigo, food borne illness, pyelonephritis, irritable bowel syndrome, influenza, Covid, GERD, incarcerated hernia, intestinal obstruction, this is not meant to be an all-inclusive list. EKG interpreted by me (3pts min.)? @ -EKG interpreted by me demonstrating the following: Sinus rhythm. Ventricular rate 85 bpm, DE interval 128 ms, QRS duration 88 ms, QTc 408 ms. X-rays interpreted by me (1pt min.)? @ -Not obtained CT interpreted by me (1pt min.)? @ -CT scan of the abdomen and pelvis obtained. My interpretation identifies gallbladder distention. U/S interpreted by me (1pt. min.)? @ -Not obtained What testing was considered but not performed? (CT, X-rays, U/S, labs)? Why? @ -None What meds were considered but not given? Why? @ -None Did you discuss the management of the patient with other professionals? @ -Yes, Dr. Perry, who accepts the patient for admission. Did you reconcile home meds? @ -No Was smoking cessation discussed for >3mins.? @ -No Was critical care preformed (if so, how long)? @ -No Were there social determinants of health that impacted care today? How? (Homelessness, low income, unemployed, alcoholism, drug addiction, transportation, low edu. Level, literacy, decrease access to med. care, [place] [facility], rehab)? @ -No Was there de-escalation of care discussed even if they declined? (Discuss DNR or withdrawal of care, Hospice)? @ -No What co-morbidities impacted this encounter? (DM, HTN, Smoking, COPD, CAD, Cancer, CVA, Hep., AIDS, mental health diagnosis, sleep apnea, morbid obesity)? @ -DM, HTN Was patient admitted / discharged? @ -Admitted. Lab work demonstrates leukocytosis with a white blood cell count of 16.3. Hemoglobin of 9.9 is stable when compared with prior. She does have hyponatremia with sodium of 126. When corrected for glucose this is approximately 128. BUN elevated at 33. COVID, influenza, and RSV testing negative. Urinalysis consistent with infection and urine was sent for culture. Blood culture ordered as well. CT scan of the abdomen and pelvis obtained. This demonstrated cholelithiasis and a significantly distended gallbladder lumen without gallbladder wall thickening or adjacent pericholecystic fluid to suggest acute cholecystitis. Patient reports intermittent right upper quadrant pain every now and then, but does not have any currently. Additionally, she has a nondependent gas focus in the urinary bladder lumen. She has not had a recent Goldberg catheterization, instrumentation, or procedure. This poses concern for gas-forming infectious etiology versus underlying fistula. Patient started on 2 g of Ceftriaxone daily. She was admitted to medicine for the emphysematous cystitis and hyponatremia. Consult placed for ID regarding the infection, urolo gy regarding the bladder irregularities, and general surgery regarding the gallbladder and possible bladder fistula. Case discussed with ED attending Dr. Sagastume. Undiagnosed new problem with uncertain prognosis? @ -None Drug Therapy requiring intensive monitoring for toxicity (Heparin, Nitro, Insulin, Cardizem)? @ -None Were any procedures done? @ -None Diagnosis/symptom? @ -Emphysematous cystitis, hyponatremia Acute, or Chronic, or Acute on Chronic? @ -Acute Uncomplicated (without systemic symptoms) or Complicated (systemic symptoms)? @ -Complicated Side effects of treatment? @ -None Exacerbation, Progression, or Severe Exacerbation] @ -Not applicable Poses a threat to life or bodily function? @ -Yes, can lead to septic shock and . - Lab Data Result diagrams: 09/25/24 16:23 09/25/24 16:23 Lab Results 09/25/24 09/25/24 09/25/24 Range/Units 16:23 16:23 16:23 WBC 16.3 H (3.8-10.6) k/uL RBC 3.68 L (3.80-5.40) m/uL Hgb 9.9 L (11.4-16.0) gm/dL Hct 29.7 L (34.0-46.0) % MCV 80.6 (80.0-100.0) fL MCH 27.0 (25.0-35.0) pg MCHC 33.5 (31.0-37.0) g/dL RDW 13.4 (11.5-15.5) % Plt Count 192 (150-450) k/uL MPV 7.6 Neutrophils % 89 % Lymphocytes % 3 % Monocytes % 5 % Eosinophils % 1 % Basophils % 0 % Neutrophils # 14.5 H (1.3-7.7) k/uL Lymphocytes # 0.6 L (1.0-4.8) k/uL Monocytes # 0.8 (0-1.0) k/uL Eosinophils # 0.1 (0-0.7) k/uL Basophils # 0.0 (0-0.2) k/uL Sodium 126 L (137-145) mmol/L Potassium 4.0 (3.5-5.1) mmol/L Chloride 90 L (98-107) mmol/L Carbon Dioxide 22 (22-30) mmol/L Anion Gap 14 mmol/L BUN 33 H (7-17) mg/dL Creatinine 1.00 (0.52-1.04) mg/dL Est GFR (CKD-EPI)AfAm 69 (>60 ml/min/1.73 sqM) Est GFR (CKD-EPI)NonAf 60 (>60 ml/min/1.73 sqM) Glucose 246 H (74-99) mg/dL Plasma Lactic Acid Merrick 0.7 (0.7-2.0) mmol/L Calcium 8.7 (8.4-10.2) mg/dL Magnesium 2.7 H (1.6-2.3) mg/dL Total Bilirubin 1.1 (0.2-1.3) mg/dL AST 15 (14-36) U/L ALT 11 (4-34) U/L Alkaline Phosphatase 91 (38-126) U/L Total Protein 6.8 (6.3-8.2) g/dL Albumin 3.8 (3.5-5.0) g/dL Amylase 35 (30-110) U/L Lipase 68 (23-300) U/L Urine Color Urine Appearance (Clear) Urine pH (5.0-8.0) Ur Specific [place] (1.001-1.035) Urine Protein (Negative) Urine Glucose (UA) (Negative) Urine Ketones (Negative) Urine Blood (Negative) Urine Nitrite (Negative) Urine Bilirubin (Negative) Urine Urobilinogen (<2.0) mg/dL Ur Leukocyte Esterase (Negative) Urine RBC (0-5) /hpf Urine WBC (0-5) /hpf Urine WBC Clumps (None) /hpf Ur Squamous Epith Cells (0-4) /hpf Urine Bacteria (None) /hpf Urine Mucus (None) /hpf Influenza Type A (PCR) (Not Detectd) Influenza Type B (PCR) (Not Detectd) RSV (PCR) (Not Detectd) SARS-CoV-2 (PCR) (Not Detectd) 09/25/24 09/25/24 Range/Units 16:23 18:59 WBC (3.8-10.6) k/uL RBC (3.80-5.40) m/uL Hgb (11.4-16.0) gm/dL Hct (34.0-46.0) % MCV (80.0-100.0) fL MCH (25.0-35.0) pg MCHC (31.0-37.0) g/dL RDW (11.5-15.5) % Plt Count (150-450) k/uL MPV Neutrophils % % Lymphocytes % % Monocytes % % Eosinophils % % Basophils % % Neutrophils # (1.3-7.7) k/uL Lymphocytes # (1.0-4.8) k/uL Monocytes # (0-1.0) k/uL Eosinophils # (0-0.7) k/uL Basophils # (0-0.2) k/uL Sodium (137-145) mmol/L Potassium (3.5-5.1) mmol/L Chloride (98-107) mmol/L Carbon Dioxide (22-30) mmol/L Anion Gap mmol/L BUN (7-17) mg/dL Creatinine (0.52-1.04) mg/dL Est GFR (CKD-EPI)AfAm (>60 ml/min/1.73 sqM) Est GFR (CKD-EPI)NonAf (>60 ml/min/1.73 sqM) Glucose (74-99) mg/dL Plasma Lactic Acid [place]rick (0.7-2.0) mmol/L Calcium (8.4-10.2) mg/dL Magnesium (1.6-2.3) mg/dL Total Bilirubin (0.2-1.3) mg/dL AST (14-36) U/L ALT (4-34) U/L Alkaline Phosphatase (38-126) U/L Total Protein (6.3-8.2) g/dL Albumin (3.5-5.0) g/dL Amylase (30-110) U/L Lipase (23-300) U/L Urine Color Yellow Urine Appearance Cloudy H (Clear) Urine pH 5.5 (5.0-8.0) Ur Specific [place] 1.020 (1.001-1.035) Urine Protein 1+ H (Negative) Urine Glucose (UA) Negative (Negative) Urine Ketones 1+ H (Negative) Urine Blood Small H (Negative) Urine Nitrite Negative (Negative) Urine Bilirubin Negative (Negative) Urine Urobilinogen <2.0 (<2.0) mg/dL Ur Leukocyte Esterase Large H (Negative) Urine RBC 3 (0-5) /hpf Urine WBC 44 H (0-5) /hpf Urine WBC Clumps Occasional H (None) /hpf Ur Squamous Epith Cells 2 (0-4) /hpf Urine Bacteria Occasional H (None) /hpf Urine Mucus Rare H (None) /hpf Influenza Type A (PCR) Not Detected (Not Detectd) Influenza Type B (PCR) Not Detected (Not Detectd) RSV (PCR) Not Detected (Not Detectd) SARS-CoV-2 (PCR) Not Detected (Not Detectd) - Radiology Data Radiology results: report reviewed, image reviewed Disposition Clinical Impression: Emphysematous cystitis, Hyponatremia Disposition: ADMITTED IP TO THIS HOSP
[2024-09-25 16:57] LABS: Basophils % (A) 0 %; Eosinophils # (A) 0.1 k/uL (0-0.7); Eosinophils % (A) 1 %; HCT 29.7 % (34.0-46.0); HGB 9.9 gm/dL (11.4-16.0); Lymphocytes # (A) 0.6 k/uL (1.0-4.8); Lymphocytes % (A) 3 %; MCHC 33.5 g/dL (31.0-37.0); MCV 80.6 fL (80.0-100.0); Mean Platelet Volume 7.6; Monocytes # (A) 0.8 k/uL (0-1.0); Monocytes % (A) 5 %; Neutrophils # (A) 14.5 k/uL (1.3-7.7); Neutrophils % (A) 89 %; Platelet Count 192 k/uL (150-450); RBC 3.68 m/uL (3.80-5.40); RDW 13.4 % (11.5-15.5); WBC 16.3 k/uL (3.8-10.6)
[2024-09-25 17:12] LABS: ALT 11 U/L (4-34); AST 15 U/L (14-36); African American GFR (CKD) 69 (>60 ml/min/1.73 sqM); Albumin 3.8 g/dL (3.5-5.0); Alkaline Phosphatase 91 U/L (38-126); Amylase 35 U/L (30-110); Anion Gap 14 mmol/L; Blood Urea Nitrogen 33 mg/dL (7-17); Calcium 8.7 mg/dL (8.4-10.2); Carbon Dioxide 22 mmol/L (22-30); Chloride 90 mmol/L (98-107); Glucose 246 mg/dL (74-99); Lipase 68 U/L (23-300); Magnesium 2.7 mg/dL (1.6-2.3); Non-African American GFR(CKD) 60 (>60 ml/min/1.73 sqM); Sodium 126 mmol/L (137-145); Total Bilirubin 1.1 mg/dL (0.2-1.3); Total Protein 6.8 g/dL (6.3-8.2)
[2024-09-25] MEDS: SODIUM CHLORIDE 0.9% 1,000 ML IV STA ×2 (17:12→19:02)
[2024-09-25] MEDS: FAMOTIDINE 20 MG/2 ML VIAL IV STA (17:13)
[2024-09-25] MEDS: ACETAMINOPHEN IV (For NPO) 1,000 MG in EMPTY BAG 1 BAG IVPB STA (17:13)
[2024-09-25] MEDS: ONDANSETRON 4 MG/2 ML VIAL IVP STA (17:13)
[2024-09-25 17:38] LABS: Influenza A Not Detected (Not Detectd); Influenza B Not Detected (Not Detectd); RSV Not Detected (Not Detectd)
[2024-09-25 19:08] LABS: Appearance,Urine Cloudy (Clear); Bacteria,Urine Occasional /hpf; Bilirubin,Urine Negative (Negative); Blood,Urine Small (Negative); Color,Urine Yellow; Glucose,Urine (UA) Negative (Negative); Ketones,Urine 1+ (Negative); Leukocyte Esterase,Urine Large (Negative); Mucus,Urine Rare /hpf; Nitrite,Urine Negative (Negative); PH, Urine 5.5 (5.0-8.0); Protein,Urine 1+ (Negative); RBC,Urine 3 /hpf (0-5); Squamous Epithelial Cell,Urine 2 /hpf (0-4); Urobilinogen,Urine <2.0 mg/dL (<2.0); WBC,Urine 44 /hpf (0-5)
--- NOTE | 2024-09-25 19:53 | CT ---
EXAMINATION TYPE: CT abdomen pelvis w con DATE OF EXAM: 09/25/2024 6:48 PM COMPARISON: None. CLINICAL INDICATION: Female, 64 years old with history of Abdominal pain, N/V; vomiting/bloating TECHNIQUE: Axial CT abdomen pelvis w con;Sagittal and coronal reformats were created on a separate w orkstation. Contrast used:80ml mL of Isovue 300 with IV Contrast, (none if empty) Oral contrast used: without Oral Contrast (none if empty) CT DLP: 1956.9 mGycm, Automated exposure control for dose reduction was used. FINDINGS: LOWER CHEST: Unremarkable ABDOMEN LIVER: Diffusely hypoattenuating parenchyma. GALLBLADDER AND BILE DUCTS: Cholelithiasis and dilated gallbladder lumen measuring 13.9 cm in AP dime nsion. No significant gallbladder wall thickening or adjacent pericholecystic fluid. PANCREAS: Unremarkable. SPLEEN: Unremarkable. ADRENAL GLANDS: Unremarkable. KIDNEYS AND URETERS: No evidence of hydronephrosis or renal calculus. The ureters are unremarkable. PELVIS BLADDER: No evidence for wall thickening or mass given limitations of exam. Small focus of gas in the nondependent portion of the urinary bladder lumen. REPRODUCTIVE: Unremarkable. ABDOMEN & PELVIS STOMACH AND BOWEL: Stomach unremarkable. No evidence of bowel obstruction. Moderate diffuse colonic s tool burden. PERITONEUM/RETROPERITONEUM: No evidence of pneumoperitoneum or free fluid. VASCULATURE: No evidence of aortic aneurysm. MUSCULOSKELETAL: No acute osseous abnormalities LYMPH NODES: No gross evidence for lymphadenopathy. SOFT TISSUE/ABDOMINAL WALL: Unremarkable IMPRESSION: 1. Cholelithiasis and significantly distended gallbladder lumen without significant gallbladder wall thickening or adjacent pericholecystic fluid. If there is underlying clinical concern for acute chol ecystitis. Further evaluation with right upper quadrant ultrasound and/or nuclear medicine HIDA scan could be considered. 2. Nondependent gas focus within the urinary bladder lumen. Recommend correlation for any recent Fol ey catheterization, instrumentation or procedure to exclude gas-forming infectious etiology versus un derlying fistula. [facility], , 09/25/2024 7:51 PM
[2024-09-25] MEDS ORDERED: IBUPROFEN 400 MG TAB PO PRN (20:08)
[2024-09-25] MEDS ORDERED: KETOROLAC 15 MG/ML 1 ML VIAL IVP PRN (20:08)
[2024-09-25] MEDS ORDERED: NALOXONE 0.4 MG/ML 1 ML VIAL IV PRN (20:08)
[2024-09-25] MEDS ORDERED: HYDROmorphone 0.5 MG/0.5 ML SYRINGE IVP PRN (20:11)
[2024-09-25] MEDS ORDERED: HYDROmorphone 1 MG/ML 1 ML SYRINGE IVP PRN (20:11)
[2024-09-25] MEDS: SODIUM CHLORIDE 0.9% 1,000 ML IV SCH (20:47)
--- NOTE | 2024-09-25 21:01 | P.GSCN ---
History of Present Illness Consult date: 09/25/24 Reason for Consult: UTI Requesting physician: Marija Katz History of present illness: The patient is a 64-year-old white female who experienced dysuria approximately 6 days ago. This resolved with the use of Azo. She now presents with nausea, vomiting, and a 2-day history of fever. She has been treated for numerous UTIs in the past, typically 1/year. Her last UTI was 2 years ago. She denies any prior history of urolithiasis. She denies pneumaturia, fecaluria, and hematuria. Review of Systems - Constitutional Reports fever - Gastrointestinal Reports nausea, Reports vomiting - Genitourinary Genitourinary: Reports as per HPI Past Medical History Past Medical History: Asthma, Diabetes Mellitus, Hypertension, Thyroid Disorder Additional Past Medical History / Comment(s): pressure in eye History of Any Multi-Drug Resistant Organisms: None Reported Past Surgical History: Orthopedic Surgery Additional Past Surgical History / Comment(s): Cataract surgery with shut placed Past Psychological History: No Psychological Hx Reported Smoking Status: Never smoker Past Alcohol Use History: Rare Past Drug Use History: None Reported Medications and Allergies Home Medications Medication Instructions Recorded Confirmed Type Acetaminophen [Tylenol Arthritis] 650 mg PO Q6H PRN 09/11/22 08/07/23 History Ergocalciferol (Vitamin D2) 1,250 mcg PO WE 09/11/22 08/07/23 History [Drisdol (50,000 Iu)] Loratadine [Claritin] 10 mg PO DAILY 09/11/22 08/07/23 History metFORMIN HCL 1,000 mg PO BID 09/11/22 08/07/23 History prednisoLONE acetate [Pred Mild] 1 drop LEFT EYE QID 09/11/22 08/07/23 History amLODIPine [Norvasc] 5 mg PO DAILY 30 Days #30 tab 09/15/22 08/07/23 Rx Albuterol Sulfate [Albuterol 1 puff PO RT-Q6H PRN 08/07/23 08/07/23 History Sulfate Hfa] Apixaban [Eliquis] 2.5 mg PO BID 08/07/23 08/07/23 History Chlorthalidone [Hygroton] 25 mg PO DAILY 08/07/23 08/07/23 History Enalapril [Vasotec] 10 mg PO DAILY@0600 08/07/23 08/07/23 History HYDROcodone/APAP 5-325MG [Candler 1 tab PO Q4HR PRN 08/07/23 08/07/23 History 5-325] Zinc Gluconate [Zinc] 50 mg PO BID 08/07/23 08/07/23 History hydrALAZINE HCL [Apresoline] 50 mg PO TID PRN 08/07/23 08/07/23 History Allergies Allergy/AdvReac Type Severity Reaction Status Date / Time ampicillin Allergy Rash/Hives Verified 08/07/23 15:04 aspirin Allergy Rash/Hives Verified 08/07/23 15:04 atropine Allergy Unknown Verified 08/07/23 15:04 ciprofloxacin [From Cipro] Allergy Rash/Hives Verified 08/07/23 15:04 codeine Allergy Vomiting Verified 08/07/23 15:04 epinephrine [From EpiPen] Allergy Rash/Hives Verified 08/07/23 15:04 hydrochlorothiazide Allergy Unknown Verified 09/25/24 15:42 morphine Allergy Unknown Verified 08/07/23 15:04 Sulfa (Sulfonamide Allergy Rash/Hives Verified 08/07/23 15:04 Antibiotics) Surgical - Exam Vital Signs Temp Pulse Resp BP Pulse Ox 100.1 F H 96 18 185/71 94 L 09/25/24 15:38 09/25/24 15:38 09/25/24 15:38 09/25/24 15:38 09/25/24 15:38 - General well developed, well nourished, no distress - Respiratory normal respiratory effort - Abdomen Soft, non-distended, no mass. Mild right upper quadrant tenderness, no guarding or rebound. - Psychiatric oriented to time, oriented to person, oriented to place, speech is normal, memory intact Results - Labs 09/25/24 16:23 09/25/24 16:23 Abnormal Lab Results - Last 24 Hours (Table) 09/25/24 09/25/24 09/25/24 Range/Units 16:23 16:23 18:59 WBC 16.3 H (3.8-10.6) k/uL RBC 3.68 L (3.80-5.40) m/uL Hgb 9.9 L (11.4-16.0) gm/dL Hct 29.7 L (34.0-46.0) % Neutrophils # 14.5 H (1.3-7.7) k/uL Lymphocytes # 0.6 L (1.0-4.8) k/uL Sodium 126 L (137-145) mmol/L Chloride 90 L (98-107) mmol/L BUN 33 H (7-17) mg/dL Glucose 246 H (74-99) mg/dL Magnesium 2.7 H (1.6-2.3) mg/dL Urine Appearance Cloudy H (Clear) Urine Protein 1+ H (Negative) Urine Ketones 1+ H (Negative) Urine Blood Small H (Negative) Ur Leukocyte Esterase Large H (Negative) Urine WBC 44 H (0-5) /hpf Urine WBC Clumps Occasional H (None) /hpf Urine Bacteria Occasional H (None) /hpf Urine Mucus Rare H (None) /hpf Diabetes panel 09/25/24 Range/Units 16:23 Sodium 126 L (137-145) mmol/L Potassium 4.0 (3.5-5.1) mmol/L Chloride 90 L (98-107) mmol/L Carbon Dioxide 22 (22-30) mmol/L BUN 33 H (7-17) mg/dL Creatinine 1.00 (0.52-1.04) mg/dL Glucose 246 H (74-99) mg/dL Calcium 8.7 (8.4-10.2) mg/dL AST 15 (14-36) U/L ALT 11 (4-34) U/L Alkaline Phosphatase 91 (38-126) U/L Total Protein 6.8 (6.3-8.2) g/dL Albumin 3.8 (3.5-5.0) g/dL Calcium panel 09/25/24 Range/Units 16:23 Calcium 8.7 (8.4-10.2) mg/dL Albumin 3.8 (3.5-5.0) g/dL Pituitary panel 09/25/24 Range/Units 16:23 Sodium 126 L (137-145) mmol/L Potassium 4.0 (3.5-5.1) mmol/L Chloride 90 L (98-107) mmol/L Carbon Dioxide 22 (22-30) mmol/L BUN 33 H (7-17) mg/dL Creatinine 1.00 (0.52-1.04) mg/dL Glucose 246 H (74-99) mg/dL Calcium 8.7 (8.4-10.2) mg/dL Adrenal panel 09/25/24 Range/Units 16:23 Sodium 126 L (137-145) mmol/L Potassium 4.0 (3.5-5.1) mmol/L Chloride 90 L (98-107) mmol/L Carbon Dioxide 22 (22-30) mmol/L BUN 33 H (7-17) mg/dL Creatinine 1.00 (0.52-1.04) mg/dL Glucose 246 H (74-99) mg/dL Calcium 8.7 (8.4-10.2) mg/dL Total Bilirubin 1.1 (0.2-1.3) mg/dL AST 15 (14-36) U/L ALT 11 (4-34) U/L Alkaline Phosphatase 91 (38-126) U/L Total Protein 6.8 (6.3-8.2) g/dL Albumin 3.8 (3.5-5.0) g/dL - Imaging CT scan - abdomen: report reviewed, image reviewed Assessment and Plan Assessment: Urinalysis is suggestive of a UTI. The presence of a small amount of air within the bladder lumen suggests an enterovesical fistula or a gas-forming organism causing the UTI. It is noteworthy that there is no gas within the bladder wall, as would be the case if she had emphysematous cystitis. (1) UTI (urinary tract infection) Current Visit: Yes Status: Acute Code(s): N39.0 - URINARY TRACT INFECTION, SITE NOT SPECIFIED SNOMED Code(s): 27474129 Plan: Continue ceftriaxone, pending urine and blood culture results. I suspect that the patient's symptoms are due to cholelithiasis with possible cholecystitis, and at this time I do not suspect an enterovesical fistula. Time with Patient: Greater than 30
[2024-09-25] MEDS: METOCLOPRAMIDE 5 MG/ML 2 ML VIAL IVP PRN (21:27)
[2024-09-26] MEDS: ACETAMINOPHEN TAB 325 MG TAB PO PRN (04:22)
[2024-09-26] MEDS: ONDANSETRON 4 MG/2 ML VIAL IVP PRN (04:24)
[2024-09-26] MEDS: PANTOPRAZOLE 40 MG/10 ML VIAL IV SCH (08:32)
[2024-09-26] MEDS: LOSARTAN 50 MG TAB PO SCH (11:40)
[2024-09-26] MEDS: amLODIPine 5 MG TAB PO SCH (11:41)
[2024-09-26] MEDS: ENOXAPARIN 40 MG/0.4 ML SYRINGE SQ SCH (11:42)
[2024-09-26] MEDS: BRIMONIDINE TARTRATE 0.2% DROPS 5 ML BTL LEFT EYE SCH (11:47)
[2024-09-26] MEDS: DORZOLAMIDE HCL 2% DROPS 10 ML BTL LEFT EYE SCH (11:48)
[2024-09-26] MEDS: prednisoLONE ACETATE 1% OPHTH DROPS 5 ML BTL LEFT EYE SCH (11:48)
[2024-09-26] MEDS: ARTIFICIAL TEARS-HYPROMELLOSE DROPS 15 ML BTL BOTH EYES SCH (12:03)
[2024-09-26] MEDS: LACTATED RINGERS 1,000 ML IV SCH (13:41)
--- NOTE | 2024-09-26 15:14 | P.GSCN ---
History of Present Illness Consult date: 09/26/24 History of present illness: CHIEF COMPLAINT: Nausea and vomiting HISTORY OF PRESENT ILLNESS: This is a 64-year-old female who has been experiencing nausea and vomiting for about 6 days. She also been having abdominal bloating. She reports having bowel movements. She reports a decreased appetite. She also reports abdominal pain in the right upper quadrant. She also was having urinary symptoms and diagnosed with a UTI. She has been evaluated by urology service and they did not feel she had an enterovesical fistula. Patient did have CT scan abdomen and pelvis that did show evidence of gallstones and distended gallbladder. Surgical service consulted in regards to gallstones. Patient did have a low-grade temp of 100.3 and awake elevated at 6.3 on admission. Patient denies any blood thinners. Denies any cardiac history. Denies any abdominal surgeries PAST MEDICAL HISTORY: Asthma, diabetes, hypertension, hypothyroidism, obstructive sleep apnea uses CPAP at home PAST SURGICAL HISTORY: Orthopedic surgery, cataract surgery MEDICATIONS: See below ALLERGIES: See below SOCIAL HISTORY: No illicit drug use. REVIEW OF SYSTEMS: CONSTITUTIONAL: Denies fever or chills. HEENT: Denies blurred vision, vision changes, or eye pain. Denies hemoptysis CARDIOVASCULAR: Denies chest pain or pressure. RESPIRATORY: No shortness of breath. GASTROINTESTINAL: See HPI for pertinent findings HEMATOLOGIC: Denies bleeding disorders. GENITOURINARY: Denies any blood in urine or increased urinary frequency. SKIN: Denies pruitis. Denies rash. PHYSICAL EXAM: VITAL SIGNS: Reviewed GENERAL: Well-developed in no acute distress. ABDOMEN: Soft. Obese. Nondistended. Tenderness palpation right upper quadrant. No rebound tenderness or guarding noted. NEUROLOGIC: Alert and oriented. Cranial nerves II through XII grossly intact. LABORATORY DATA: WBC 16.3 Hgb 9.9 platelets 192 Sodium 126 potassium 4.0 creatinine 1.0 Total bilirubin 1.1 AST 15 ALT 11 alk phos 91 lipase 68 Urinalysis positive for UTI IMAGING: CT scan abdomen pelvis reports cholelithiasis and significantly distended gallbladder lumen without significant gallbladder wall thickening or adjacent pericholecystic fluid. Nondependent gas focus within the urinary bladder lumen. Recommend correlation for any recent Goldberg catheterization, instrumentation or procedure to exclude gas-forming infectious etiology versus underlying fistula. ASSESSMENT: 1. Cholecystitis with CT scan evidence of gallstones and significantly distended gallbladder 2. UTI and CT scan reporting nondependent gas focus within the urinary bladder lumen PLAN: -Recommend cholecystectomy outpatient -Continue antibiotics -Urology consult noted -Recommend low-fat diet Physician Accountancy Professor note has been reviewed by physician. Signing provider agrees with the documented findings, assessment, and plan of care. Past Medical History Past Medical History: Asthma, Diabetes Mellitus, Hypertension, Thyroid Disorder Additional Past Medical History / Comment(s): pressure in eye History of Any Multi-Drug Resistant Organisms: None Reported Past Surgical History: Orthopedic Surgery Additional Past Surgical History / Comment(s): Cataract surgery with shut placed Past Psychological History: No Psychological Hx Reported Smoking Status: Never smoker Past Alcohol Use History: Rare Past Drug Use History: None Reported Medications and Allergies Home Medications Medication Instructions Recorded Confirmed Type Ergocalciferol (Vitamin D2) 1,250 mcg PO WE 09/11/22 09/26/24 History [Drisdol (50,000 Iu)] metFORMIN HCL 1,000 mg PO BID 09/11/22 09/26/24 History amLODIPine [Norvasc] 5 mg PO DAILY 30 Days #30 tab 09/15/22 09/26/24 Rx Chlorthalidone [Hygroton] 25 mg PO DAILY 08/07/23 09/26/24 History Brimonidine Tartrate [Alphagan P 1 drops LEFT EYE BID 09/26/24 09/26/24 History 0.2% Ophth Soln] Carboxymethylcellulose Sodium 1 drop BOTH EYES QID 09/26/24 09/26/24 History [Thera Tears] Dorzolamide 2% [Trusopt 2%] 1 drops LEFT EYE BID 09/26/24 09/26/24 History Latanoprost [Latanoprost 0.005%] 1 drop LEFT EYE HS 09/26/24 09/26/24 History Losartan Potassium [Cozaar] 100 mg PO DAILY 09/26/24 09/26/24 History prednisoLONE ACETATE 1% OPHTH 1 drops LEFT EYE DAILY 09/26/24 09/26/24 History [Pred Forte 1%] Allergies Allergy/AdvReac Type Severity Reaction Status Date / Time ampicillin Allergy Rash/Hives Verified 09/26/24 07:55 aspirin Allergy Rash/Hives Verified 09/26/24 07:55 atropine Allergy Unknown Verified 09/26/24 07:55 ciprofloxacin [From Cipro] Allergy Rash/Hives Verified 09/26/24 07:55 codeine Allergy Vomiting Verified 09/26/24 07:55 epinephrine [From EpiPen] Allergy Rash/Hives Verified 09/26/24 07:55 hydrochlorothiazide Allergy Unknown Verified 09/26/24 07:55 morphine Allergy Unknown Verified 09/26/24 07:55 Sulfa (Sulfonamide Allergy Rash/Hives Verified 09/26/24 07:55 Antibiotics) Surgical - Exam Vital Signs Temp Pulse Resp BP Pulse Ox 100.1 F H 96 18 185/71 94 L 09/25/24 15:38 09/25/24 15:38 09/25/24 15:38 09/25/24 15:38 09/25/24 15:38 Results - Labs 09/25/24 16:23 09/25/24 16:23 Abnormal Lab Results - Last 24 Hours (Table) 09/25/24 09/25/24 09/25/24 Range/Units 16:23 16:23 18:59 WBC 16.3 H (3.8-10.6) k/uL RBC 3.68 L (3.80-5.40) m/uL Hgb 9.9 L (11.4-16.0) gm/dL Hct 29.7 L (34.0-46.0) % Neutrophils # 14.5 H (1.3-7.7) k/uL Lymphocytes # 0.6 L (1.0-4.8) k/uL Sodium 126 L (137-145) mmol/L Chloride 90 L (98-107) mmol/L BUN 33 H (7-17) mg/dL Glucose 246 H (74-99) mg/dL Magnesium 2.7 H (1.6-2.3) mg/dL Urine Appearance Cloudy H (Clear) Urine Protein 1+ H (Negative) Urine Ketones 1+ H (Negative) Urine Blood Small H (Negative) Ur Leukocyte Esterase Large H (Negative) Urine WBC 44 H (0-5) /hpf Urine WBC Clumps Occasional H (None) /hpf Urine Bacteria Occasional H (None) /hpf Urine Mucus Rare H (None) /hpf Diabetes panel 09/25/24 Range/Units 16:23 Sodium 126 L (137-145) mmol/L Potassium 4.0 (3.5-5.1) mmol/L Chloride 90 L (98-107) mmol/L Carbon Dioxide 22 (22-30) mmol/L BUN 33 H (7-17) mg/dL Creatinine 1.00 (0.52-1.04) mg/dL Glucose 246 H (74-99) mg/dL Calcium 8.7 (8.4-10.2) mg/dL AST 15 (14-36) U/L ALT 11 (4-34) U/L Alkaline Phosphatase 91 (38-126) U/L Total Protein 6.8 (6.3-8.2) g/dL Albumin 3.8 (3.5-5.0) g/dL Calcium panel 09/25/24 Range/Units 16:23 Calcium 8.7 (8.4-10.2) mg/dL Albumin 3.8 (3.5-5.0) g/dL Pituitary panel 09/25/24 Range/Units 16:23 Sodium 126 L (137-145) mmol/L Potassium 4.0 (3.5-5.1) mmol/L Chloride 90 L (98-107) mmol/L Carbon Dioxide 22 (22-30) mmol/L BUN 33 H (7-17) mg/dL Creatinine 1.00 (0.52-1.04) mg/dL Glucose 246 H (74-99) mg/dL Calcium 8.7 (8.4-10.2) mg/dL Adrenal panel 09/25/24 Range/Units 16:23 Sodium 126 L (137-145) mmol/L Potassium 4.0 (3.5-5.1) mmol/L Chloride 90 L (98-107) mmol/L Carbon Dioxide 22 (22-30) mmol/L BUN 33 H (7-17) mg/dL Creatinine 1.00 (0.52-1.04) mg/dL Glucose 246 H (74-99) mg/dL Calcium 8.7 (8.4-10.2) mg/dL Total Bilirubin 1.1 (0.2-1.3) mg/dL AST 15 (14-36) U/L ALT 11 (4-34) U/L Alkaline Phosphatase 91 (38-126) U/L Total Protein 6.8 (6.3-8.2) g/dL Albumin 3.8 (3.5-5.0) g/dL
[2024-09-26 17:19] LABS: Glucose,Whole Blood 269 mg/dL (70-110)
--- NOTE | 2024-09-26 18:19 | P.HPIM ---
History of Present Illness H&P Date: 09/26/24 Chief Complaint: Nausea vomiting 64-year-old patient who follows with Dr. Sammi Benitez. 6 days ago patient started with nausea vomiting. Initially she thought it was getting a UTI a day prior and then the symptoms started. Decreased bowel movements but took laxat naheed. No abdominal pain. Did reply have some fever. Only to take some liquids down. Little bowel movement. This morning had a banana. Review of systems: GEN.: Tired, some fever EYES: None HEENT: None NECK: None RESPIRATORY: None CARDIOVASCULAR: None GASTROINTESTINAL: As above GENITOURINARY: None MUSCULOSKELETAL: None LYMPHATICS: None HEMATOLOGICAL: None PSYCHIATRY: None NEUROLOGICAL: None Social history: Lives alone. No smoking no alcohol. Physical examination: VITAL SIGNS: 98.6, 90, 16, 169 x 95, 97% on 2 L GENERAL: BMI 43.9, resting a bit tired. EYES: Pupils equal. Conjunctiva luiz l. HEENT: External appearance of nose and ears normal, oral cavity grossly normal. NECK: JVD not raised; masses not palpable. HEART: First and second heart sounds are normal; no edema. LUNGS: Respiratory rate normal; clear to auscultation. ABDOMEN: Soft, right upper quadrant tenderness, liver spleen not palpable, no masses palpable. PSYCH: Alert and oriented x3; mood and affect luiz l. MUSCULOSKELETAL:No Clubbing/cyanosis;muscles-grossly intact NEUROLOGICAL: Cranial nerves grossly intact; no facial asymmetry, power and sensation grossly intact. LYMPHATICS: No lymph nodes palpable in the axilla and neck INVESTIGATIONS, reviewed in the clinical context: September 25: White count 6.3 hemoglobin 9.9 platelets 192 sodium 126 potassium 4 BUN 33 creatinine 1.0 UA: Leukoesterase large WBC 44 squamous epithelial cells 2 Influenza type A, type B, RSV, COVID-19: Not detected EKG tracing personally reviewed by me-normal sinus rhythm. EKG tracing personally reviewed by me-gallstones with significantly distended gallbladder lumen without significant gallbladder wall thickening or any adjacent pericystic cholecystic fluid. Assessment plan: -Acute cholecystitis. With choledocholithiasis. IV ceftriaxone. General surgery consulted. IV fluids. -Diabetes mellitus type 2 on oral hypoglycemic Metformin. Follow Accu-Cheks with sliding scale insulin -Hyponatremia from decreased solute intake. With hypovolemia IV fluids -Essential hypertension Cozaar. Amlodipine -Glaucoma Resume home eyedrops -Full code Patient seen by surgery. Allow her low-fat diet. IV antibiotics. See how patient does. Increase activity. Discussed. Past Medical History Past Medical History: Asthma, Diabetes Mellitus, Hypertension, Thyroid Disorder Additional Past Medical History / Comment(s): pressure in eye History of Any Multi-Drug Resistant Organisms: None Reported Past Surgical History: Orthopedic Surgery Additional Past Surgical History / Comment(s): Cataract surgery with shut placed Past Psychological History: No Psychological Hx Reported Smoking Status: Never smoker Past Alcohol Use History: Rare Past Drug Use History: None Reported Medications and Allergies Home Medications Medication Instructions Recorded Confirmed Type Ergocalciferol (Vitamin D2) 1,250 mcg PO WE 09/11/22 09/26/24 History [Drisdol (50,000 Iu)] metFORMIN HCL 1,000 mg PO BID 09/11/22 09/26/24 History amLODIPine [Norvasc] 5 mg PO DAILY 30 Days #30 tab 09/15/22 09/26/24 Rx Chlorthalidone [Hygroton] 25 mg PO DAILY 08/07/23 09/26/24 History Brimonidine Tartrate [Alphagan P 1 drops LEFT EYE BID 09/26/24 09/26/24 History 0.2% Ophth Soln] Carboxymethylcellulose Sodium 1 drop BOTH EYES QID 09/26/24 09/26/24 History [Thera Tears] Dorzolamide 2% [Trusopt 2%] 1 drops LEFT EYE BID 09/26/24 09/26/24 History Latanoprost [Latanoprost 0.005%] 1 drop LEFT EYE HS 09/26/24 09/26/24 History Losartan Potassium [Cozaar] 100 mg PO DAILY 09/26/24 09/26/24 History prednisoLONE ACETATE 1% OPHTH 1 drops LEFT EYE DAILY 09/26/24 09/26/24 History [Pred Forte 1%] Allergies Allergy/AdvReac Type Severity Reaction Status Date / Time ampicillin Allergy Rash/Hives Verified 09/26/24 07:55 aspirin Allergy Rash/Hives Verified 09/26/24 07:55 atropine Allergy Unknown Verified 09/26/24 07:55 ciprofloxacin [From Cipro] Allergy Rash/Hives Verified 09/26/24 07:55 codeine Allergy Vomiting Verified 09/26/24 07:55 epinephrine [From EpiPen] Allergy Rash/Hives Verified 09/26/24 07:55 hydrochlorothiazide Allergy Unknown Verified 09/26/24 07:55 morphine Allergy Unknown Verified 09/26/24 07:55 Sulfa (Sulfonamide Allergy Rash/Hives Verified 09/26/24 07:55 Antibiotics) Physical Exam Vitals: Vital Signs Temp Pulse Resp BP Pulse Ox 09/26/24 08:39 79 18 159/65 98 09/26/24 05:45 99.6 F 82 17 167/63 98 09/26/24 04:18 100.3 F H 87 19 168/70 95 09/25/24 23:53 98.9 F 81 17 164/75 95 09/25/24 20:58 98.9 F 73 16 151/75 95 09/25/24 15:38 100.1 F H 96 18 185/71 94 L Intake and Output 09/25/24 09/26/24 09/26/24 22:59 06:59 14:59 Other: Weight 108.862 kg Results CBC & Chem 7: 09/25/24 16:23 09/25/24 16:23 Labs: Abnormal Lab Results - Last 24 Hours (Table) 09/25/24 09/25/24 09/25/24 Range/Units 16:23 16:23 18:59 WBC 16.3 H (3.8-10.6) k/uL RBC 3.68 L (3.80-5.40) m/uL Hgb 9.9 L (11.4-16.0) gm/dL Hct 29.7 L (34.0-46.0) % Neutrophils # 14.5 H (1.3-7.7) k/uL Lymphocytes # 0.6 L (1.0-4.8) k/uL Sodium 126 L (137-145) mmol/L Chloride 90 L (98-107) mmol/L BUN 33 H (7-17) mg/dL Glucose 246 H (74-99) mg/dL Magnesium 2.7 H (1.6-2.3) mg/dL Urine Appearance Cloudy H (Clear) Urine Protein 1+ H (Negative) Urine Ketones 1+ H (Negative) Urine Blood Small H (Negative) Ur Leukocyte Esterase Large H (Negative) Urine WBC 44 H (0-5) /hpf Urine WBC Clumps Occasional H (None) /hpf Urine Bacteria Occasional H (None) /hpf Urine Mucus Rare H (None) /hpf
[2024-09-26] MEDS: metFORMIN 500 MG TAB PO SCH (20:47)
[2024-09-26] MEDS: cloNIDine HCL 0.1 MG TAB PO STA (21:14)
[2024-09-26] MEDS: LATANOPROST 0.005% OPHTH DROPS 2.5 ML BTL LEFT EYE SCH (21:15)
[2024-09-27 06:19] LABS: Basophils # (A) 0.1 k/uL (0-0.2); Basophils % (A) 1 %; Eosinophils # (A) 0.1 k/uL (0-0.7); Eosinophils % (A) 1 %; HCT 27.1 % (34.0-46.0); HGB 8.7 gm/dL (11.4-16.0); Lymphocytes % (A) 6 %; MCH 26.7 pg (25.0-35.0); MCHC 32.2 g/dL (31.0-37.0); MCV 82.8 fL (80.0-100.0); Monocytes % (A) 6 %; Neutrophils # (A) 14.4 k/uL (1.3-7.7); Neutrophils % (A) 84 %; Platelet Count 220 k/uL (150-450); RBC 3.27 m/uL (3.80-5.40); RDW 13.8 % (11.5-15.5); WBC 17.1 k/uL (3.8-10.6)
[2024-09-27] MEDS: PANTOPRAZOLE 40 MG TABLET PO SCH (06:27)
[2024-09-27 06:28] LABS: African American GFR (CKD) 39 (>60 ml/min/1.73 sqM); Anion Gap 11 mmol/L; Blood Urea Nitrogen 37 mg/dL (7-17); Calcium 8.4 mg/dL (8.4-10.2); Carbon Dioxide 23 mmol/L (22-30); Chloride 95 mmol/L (98-107); Glucose 203 mg/dL (74-99); Non-African American GFR(CKD) 34 (>60 ml/min/1.73 sqM); Sodium 129 mmol/L (137-145)
--- NOTE | 2024-09-27 08:29 | P.CONS ---
History of Present Illness - Reason for Consult Consult date: 09/26/24 UTI, possible emphysematous cystitis Requesting physician: Tova Salmeron - Chief Complaint Nausea and vomiting x few days - History of Present Illness Patient is a 64-year-old female with a past medical history significant diabetes mellitus hypertension asthma thyroid disorder presenting to the hospital for evaluation of nausea and vomiting symptom has been going on for about 6 days patient was initially having dysuria and thought was related to the UTI however the patient's symptoms did not improve she been complaining of multiple episode of vomiting denies significant abdominal pain or any diarrhea and subsequently urinary symptom has slightly eased out patient did not recall any high-grade fever did have some chills on presentation to the hospital patient did have a low-grade fever of 100.1 degrees for night subsequently temperature 100.3 F, patient was not tachycardic or hypotensive mildly hypoxic currently on 2 L nasal oxygen patient did have white count of 16.3 creatinine is 1.0 liver isms are normal urine has been positive with cloudy urine large leukocyte esterase 4-4 WBC influenza RSV COVID testing has been negative patient did have abdominal pelvis CT cholelithiasis and dilated gallbladder nondependent gas focus within the urinary bladder lumen patient has been started on Rocephin infectious disease was consulted for UTI possible emphysematous cystitis Review of Systems Positive point and negatives has been mentioned in the HPI, complete review of systems was performed and all other systems are negative Past Medical History Past Medical History: Asthma, Diabetes Mellitus, Hypertension, Thyroid Disorder Additional Past Medical History / Comment(s): pressure in eye History of Any Multi-Drug Resistant Organisms: None Reported Past Surgical History: Orthopedic Surgery Additional Past Surgical History / Comment(s): Cataract surgery with shut placed Past Psychological History: No Psychological Hx Reported Smoking Status: Never smoker Past Alcohol Use History: Rare Past Drug Use History: None Reported Medications and Allergies Home Medications Medication Instructions Recorded Confirmed Type Ergocalciferol (Vitamin D2) 1,250 mcg PO WE 09/11/22 09/26/24 History [Drisdol (50,000 Iu)] metFORMIN HCL 1,000 mg PO BID 09/11/22 09/26/24 History amLODIPine [Norvasc] 5 mg PO DAILY 30 Days #30 tab 09/15/22 09/26/24 Rx Chlorthalidone [Hygroton] 25 mg PO DAILY 08/07/23 09/26/24 History Brimonidine Tartrate [Alphagan P 1 drops LEFT EYE BID 09/26/24 09/26/24 History 0.2% Ophth Soln] Carboxymethylcellulose Sodium 1 drop BOTH EYES QID 09/26/24 09/26/24 History [Thera Tears] Dorzolamide 2% [Trusopt 2%] 1 drops LEFT EYE BID 09/26/24 09/26/24 History Latanoprost [Latanoprost 0.005%] 1 drop LEFT EYE HS 09/26/24 09/26/24 History Losartan Potassium [Cozaar] 100 mg PO DAILY 09/26/24 09/26/24 History prednisoLONE ACETATE 1% OPHTH 1 drops LEFT EYE DAILY 09/26/24 09/26/24 History [Pred Forte 1%] Allergies Allergy/AdvReac Type Severity Reaction Status Date / Time ampicillin Allergy Rash/Hives Verified 09/26/24 07:55 aspirin Allergy Rash/Hives Verified 09/26/24 07:55 atropine Allergy Unknown Verified 09/26/24 07:55 ciprofloxacin [From Cipro] Allergy Rash/Hives Verified 09/26/24 07:55 codeine Allergy Vomiting Verified 09/26/24 07:55 epinephrine [From EpiPen] Allergy Rash/Hives Verified 09/26/24 07:55 hydrochlorothiazide Allergy Unknown Verified 09/26/24 07:55 morphine Allergy Unknown Verified 09/26/24 07:55 Sulfa (Sulfonamide Allergy Rash/Hives Verified 09/26/24 07:55 Antibiotics) Physical Exam Vitals: Vital Signs Temp Pulse Resp BP Pulse Ox 09/26/24 08:39 79 18 159/65 98 09/26/24 05:45 99.6 F 82 17 167/63 98 09/26/24 04:18 100.3 F H 87 19 168/70 95 09/25/24 23:53 98.9 F 81 17 164/75 95 09/25/24 20:58 98.9 F 73 16 151/75 95 09/25/24 15:38 100.1 F H 96 18 185/71 94 L Intake and Output 09/25/24 09/26/24 09/26/24 22:59 06:59 14:59 Other: Weight 108.862 kg GENERAL DESCRIPTION: Middle-aged male up in bed, no distress. No tachypnea or accessory muscle of respiration use. HEENT: Shows Pallor , no scleral icterus. Oral mucous membrane is dry. NECK: Trachea central, no thyromegaly. LUNGS: Unlabored breathing. Clear to auscultation anteriorly. No wheeze or crackle. HEART: S1, S2, regular rate and rhythm. No loud murmur ABDOMEN: Soft, no tenderness , EXTREMITIES: No edema of feet. SKIN: No rash, no masses palpable. NEUROLOGICAL: The patient is awake, alert, oriented x3, mood and affect normal. Results CBC & Chem 7: 09/27/24 05:54 09/27/24 05:54 Labs: Abnormal Lab Results - Last 24 Hours (Table) 09/25/24 09/25/24 09/25/24 Range/Units 16:23 16:23 18:59 WBC 16.3 H (3.8-10.6) k/uL RBC 3.68 L (3.80-5.40) m/uL Hgb 9.9 L (11.4-16.0) gm/dL Hct 29.7 L (34.0-46.0) % Neutrophils # 14.5 H (1.3-7.7) k/uL Lymphocytes # 0.6 L (1.0-4.8) k/uL Sodium 126 L (137-145) mmol/L Chloride 90 L (98-107) mmol/L BUN 33 H (7-17) mg/dL Glucose 246 H (74-99) mg/dL Magnesium 2.7 H (1.6-2.3) mg/dL Urine Appearance Cloudy H (Clear) Urine Protein 1+ H (Negative) Urine Ketones 1+ H (Negative) Urine Blood Small H (Negative) Ur Leukocyte Esterase Large H (Negative) Urine WBC 44 H (0-5) /hpf Urine WBC Clumps Occasional H (None) /hpf Urine Bacteria Occasional H (None) /hpf Urine Mucus Rare H (None) /hpf Assessment and Plan (1) Allergy to multiple antibiotics Current Visit: Yes Status: Acute Code(s): Z88.1 - ALLERGY STATUS TO OTHER ANTIBIOTIC AGENTS SNOMED Code(s): 459124550 (2) Emphysematous cystitis Current Visit: Yes Status: Acute Code(s): N30.80 - OTHER CYSTITIS WITHOUT HEMATURIA SNOMED Code(s): 40774312 (3) UTI (urinary tract infection) Current Visit: Yes Status: Acute Code(s): N39.0 - URINARY TRACT INFECTION, SITE NOT SPECIFIED SNOMED Code(s): 39748318 Plan: 1patient presented to hospital with nausea vomiting not feeling well and did have a urinary symptoms of burning frequency few days ago did have significantly positive UA with abnormal CT concerning for gas in the bladder and this patient has not been catheterized concerning for possible emphysematous cystitis she did have abnormality seen on the CT of the gallbladder but no significant right upper quadrant tenderness 2-patient with multiple antibiotic ALLERGIES that would limit the number of antibiotic safe to use 3-patient will be treated with Rocephin 2 g daily while waiting for the culture to finalize Question concern were answered We will follow on clinical condition and cultures to further adjust medication if needed Thank you for this consultation we will follow the patient along with you Dictation was produced using [employer] dictation software. please excuse any grammatical, word or spelling errors. Time with Patient: Greater than 30
[2024-09-27] MEDS: ENOXAPARIN 30 MG/0.3 ML SYRINGE SQ SCH (09:43)
--- NOTE | 2024-09-27 11:12 | P.PN ---
Subjective Progress Note Date: 09/27/24 SURGICAL PROGRESS NOTE CHIEF COMPLAINT: Nausea and vomiting HISTORY OF PRESENT ILLNESS: Surgical service is following in regards to cholecystitis. Patient does have tenderness in the right upper quadrant. She was nauseated during the night after laying on her right side she had increase in pain. She is tolerating the low-fat diet. She has had no further vomiting. Her pain is currently controlled. She is also being treated for UTI. She is afebrile. Blood culture positive for E. coli. WBC did go up from 16-[address] Michelle is covering for Dr. Horn PHYSICAL EXAM: VITAL SIGNS: Reviewed. GENERAL: Well-developed in no acute distress. ABDOMEN: Soft. Nondistended. Tenderness to palpation right upper quadrant. No rebound or guarding. NEUROLOGIC: Alert and oriented. Cranial nerves II through XII grossly intact. ASSESSMENT: 1. Blood cultures cholecystitis with CT scan evidence of gallstones and significantly distended gallbladder 2. UTI and CT scan reporting nondependent gas focus within the urinary bladder lumen PLAN: -Recommend outpatient cholecystectomy -Continue antibiotics per ID service -Continue low-fat diet Physician Netting Inspector note has been reviewed by physician. Signing provider agrees with the documented findings, assessment, and plan of care. I have personally seen and examined the patient, reviewed the MEDICAL DETAILIST /PAs history, exam and MDM and agree with the assessment and plan as written. Based on total visit time, I have performed more than 50% of the visit. As above: Patient still having some right-sided tenderness. Blood cultures po sitive for E. coli. Continue IV antibiotics. Continue diet for now. Will follow. Objective - Vital Signs Vital signs: Vital Signs Temp 99.3 F 09/27/24 08:00 Pulse 88 09/27/24 08:00 Resp 17 09/27/24 08:00 BP 169/69 09/27/24 08:00 Pulse Ox 97 09/27/24 08:00 FiO2 Intake & Output 09/26/24 09/27/24 09/27/24 18:59 06:59 18:59 Intake Total 10 Balance 10 Weight 108.862 kg Intake: IV 10 Invasive Line 1 10 Other: Voiding Method Toilet # Voids 2 2 - Labs CBC & Chem 7: 09/27/24 05:54 09/27/24 05:54 Labs: Abnormal Lab Results - Last 24 Hours (Table) 09/26/24 09/27/24 09/27/24 Range/Units 17:17 05:54 05:54 WBC 17.1 H (3.8-10.6) k/uL RBC 3.27 L (3.80-5.40) m/uL Hgb 8.7 L (11.4-16.0) gm/dL Hct 27.1 L (34.0-46.0) % Neutrophils # 14.4 H (1.3-7.7) k/uL Sodium 129 L (137-145) mmol/L Chloride 95 L (98-107) mmol/L BUN 37 H (7-17) mg/dL Creatinine 1.60 H (0.52-1.04) mg/dL Glucose 203 H (74-99) mg/dL POC Glucose (mg/dL) 269 H (70-110) mg/dL Microbiology - Last 24 Hours (Table) 09/25/24 20:35 Blood Culture Gram Stain - Preliminary Blood Blood Culture - Preliminary Escherichia coli Molecular ID 09/25/24 20:04 Urine Culture - Preliminary Urine,Clean Catch Gram Neg Bacilli
--- NOTE | 2024-09-27 12:58 | P.PN ---
Subjective Progress Note Date: 09/27/24 Principal diagnosis: Reason for follow-up is cystitis UTI bacteremia Patient is a 64-year-old female with a past medical history significant diabetes mellitus hypertension asthma thyroid disorder presenting to the hospital for evaluation of nausea and vomiting patient did have a CT abdominal pelvis concerning for cholelithiasis distended gallbladder and some air within the urinary bladder concerning for possible emphysematous cystitis subsequent blood culture positive for E. coli. On today's evaluation that is 09/27/2024, Patient did have resolution of her fever and is afebrile this morning, patient denies having any chest pain shortness of breath or cough, the patient is currently on room air, patient complaining of some right upper quadrant abdominal pain no diarrhea no nausea no vomiting. Patient white count 17.1, creatinine is 1.60 blood culture with an E. coli urine showing gram-negative bacilli Objective - Vital Signs Vital signs: Vital Signs Temp 99.3 F 09/27/24 08:00 Pulse 88 09/27/24 08:00 Resp 17 09/27/24 08:00 BP 169/69 09/27/24 08:00 Pulse Ox 97 09/27/24 08:00 FiO2 Intake & Output 09/26/24 09/27/24 09/27/24 18:59 06:59 18:59 Intake Total 10 Balance 10 Weight 108.862 kg Intake: IV 10 Invasive Line 1 10 Other: Voiding Method Toilet # Voids 2 2 - Exam GENERAL DESCRIPTION: Middle-age female up in bed in no distress RESPIRATORY SYSTEM: Unlabored breathing , decreased breath sounds at bases HEART: S1 S2 regular rate and rhythm , ABDOMEN: Soft , no tenderness EXTREMITIES: No edema feet - Labs CBC & Chem 7: 09/27/24 05:54 09/27/24 05:54 Labs: Abnormal Lab Results - Last 24 Hours (Table) 09/26/24 09/27/24 09/27/24 Range/Units 17:17 05:54 05:54 WBC 17.1 H (3.8-10.6) k/uL RBC 3.27 L (3.80-5.40) m/uL Hgb 8.7 L (11.4-16.0) gm/dL Hct 27.1 L (34.0-46.0) % Neutrophils # 14.4 H (1.3-7.7) k/uL Sodium 129 L (137-145) mmol/L Chloride 95 L (98-107) mmol/L BUN 37 H (7-17) mg/dL Creatinine 1.60 H (0.52-1.04) mg/dL Glucose 203 H (74-99) mg/dL POC Glucose (mg/dL) 269 H (70-110) mg/dL Microbiology - Last 24 Hours (Table) 09/25/24 20:35 Blood Culture Gram Stain - Preliminary Blood Blood Culture - Preliminary Escherichia coli Molecular ID 09/25/24 20:04 Urine Culture - Preliminary Urine,Clean Catch Gram Neg Bacilli Assessment and Plan (1) Allergy to multiple antibiotics Current Visit: Yes Status: Acute Code(s): Z88.1 - ALLERGY STATUS TO OTHER ANTIBIOTIC AGENTS SNOMED Code(s): 380173908 (2) Emphysematous cystitis Current Visit: Yes Status: Acute Code(s): N30.80 - OTHER CYSTITIS WITHOUT HEMATURIA SNOMED Code(s): 58583129 (3) UTI (urinary tract infection) Current Visit: Yes Status: Acute Code(s): N39.0 - URINARY TRACT INFECTION, SITE NOT SPECIFIED SNOMED Code(s): 75951512 Plan: 1patient presented to hospital with nausea vomiting not feeling well and did have a urinary symptoms of burning frequency few days ago did have significantly positive UA with abnormal CT concerning for gas in the bladder and this patient has not been catheterized concerning for possible emphysematous cystitis she did have abnormality seen on the CT of the gallbladder but no significant right upper quadrant tenderness 2-patient with multiple antibiotic ALLERGIES that would limit the number of antibiotic safe to use 3-patient with E. coli bacteremia source likely urinary 4patient will be treated with Rocephin while waiting for sensitivity finalize Dictation was produced using [employer] dictation software. please excuse any grammatical, word or spelling errors. Time with Patient: Less than 30
--- NOTE | 2024-09-27 14:09 | P.PN ---
Subjective Progress Note Date: 09/27/24 The patient is in the hospital with emphysematous cystitis. E. coli is growing. There is no pneumaturia. The sensitivities are pending. She is feeling better. Objective - Vital Signs Vital signs: Vital Signs Temp 99.3 F 09/27/24 08:00 Pulse 88 09/27/24 08:00 Resp 17 09/27/24 08:00 BP 169/69 09/27/24 08:00 Pulse Ox 97 09/27/24 08:00 FiO2 Intake & Output 09/26/24 09/27/24 09/27/24 18:59 06:59 18:59 Intake Total 10 Balance 10 Weight 108.862 kg Intake: IV 10 Invasive Line 1 10 Other: Voiding Method Toilet # Voids 2 2 - Labs CBC & Chem 7: 09/27/24 05:54 09/27/24 05:54 Labs: Abnormal Lab Results - Last 24 Hours (Table) 09/26/24 09/27/24 09/27/24 Range/Units 17:17 05:54 05:54 WBC 17.1 H (3.8-10.6) k/uL RBC 3.27 L (3.80-5.40) m/uL Hgb 8.7 L (11.4-16.0) gm/dL Hct 27.1 L (34.0-46.0) % Neutrophils # 14.4 H (1.3-7.7) k/uL Sodium 129 L (137-145) mmol/L Chloride 95 L (98-107) mmol/L BUN 37 H (7-17) mg/dL Creatinine 1.60 H (0.52-1.04) mg/dL Glucose 203 H (74-99) mg/dL POC Glucose (mg/dL) 269 H (70-110) mg/dL Microbiology - Last 24 Hours (Table) 09/25/24 20:35 Blood Culture Gram Stain - Preliminary Blood Blood Culture - Preliminary Escherichia coli Molecular ID 09/25/24 20:04 Urine Culture - Preliminary Urine,Clean Catch Gram Neg Bacilli Assessment and Plan Assessment: Impression: Emphysematous cystitis secondary to E. coli with cultures pending. Patient is improving.
--- NOTE | 2024-09-27 15:43 | P.PN ---
Progress Note - Text Progress Note Date: 09/27/24 Chief Complaint: Nausea vomiting 64-year-old patient who follows with Dr. Sammi Benitez. 6 days ago patient started with nausea vomiting. Initially she thought it was getting a UTI a day prior and then the symptoms started. Decreased bowel movements but took laxatives. No abdominal pain. Did reply have some fever. Only to take some liquids down. Little bowel movement. This morning had a banana. September 27: Patient's blood cultures come back positive for E. coli. Getting IV ceftriaxone. Repeat blood culture ordered. Improved abdominal pain. On a soft diet. Last low-grade fever yesterday morning.Patient increase activity. Per surgery outpatient surgical intervention. Discussed with the patient the importance of repeat blood cultures to make sure is coming negative. No nausea vomiting. Patient's creatinine has bumped up to 1.6.. Ketorolac, naproxen,. Increase IV fluids to 100 cc an hour. Active Medications Acetaminophen (Acetaminophen Tab 325 Mg Tab) 650 mg PO Q6HR PRN PRN Reason: Mild Pain or Fever > 100.5 Last Admin: 09/26/24 04:22 Dose: 650 mg Amlodipine Besylate (Amlodipine 5 Mg Tab) 5 mg PO DAILY [facility] Last Admin: 09/27/24 09:44 Dose: 5 mg Artificial Tears (Artificial Tears-Hypromellose Drops 15 Ml Btl) 1 drops BOTH EYES QID [facility] Last Admin: 09/27/24 14:54 Dose: 1 drops Brimonidine Tartrate (Brimonidine Tartrate 0.2% Drops 5 Ml Btl) 1 drops LEFT EYE BID [facility] Last Admin: 09/27/24 09:43 Dose: 1 drops Dorzolamide HCl (Dorzolamide Hcl 2% Drops 10 Ml Btl) 1 drops LEFT EYE BID [facility] Last Admin: 09/27/24 09:45 Dose: 1 drops Enoxaparin Sodium (Enoxaparin 30 Mg/0.3 Ml Syringe) 30 mg SQ DAILY [facility] Last Admin: 09/27/24 09:43 Dose: 30 mg Ergocalciferol (Ergocalciferol 1,250 Mcg (50,000 Iu) Capsule) 1,250 mcg PO We@0900 [facility] Ceftriaxone Sodium 2 gm/ (Sodium Chloride) 50 mls @ 100 mls/hr IVPB [facility]; Protocol Last Admin: 09/26/24 20:48 Dose: 100 mls/hr Lactated Ringer's (Lactated Ringers) 1,000 mls @ 100 mls/hr IV .Q10H [facility] Latanoprost (Latanoprost 0.005% Ophth Drops 2.5 Ml Btl) 1 drops LEFT EYE HS [facility] Last Admin: 09/26/24 21:15 Dose: 1 drops Losartan Potassium (Losartan 50 Mg Tab) 100 mg PO DAILY [facility] Last Admin: 09/27/24 09:43 Dose: 100 mg Metoclopramide HCl (Metoclopramide 5 Mg/Ml 2 Ml Vial) 10 mg IVP Q6HR PRN PRN Reason: Nausea And Vomiting Last Admin: 09/25/24 21:27 Dose: 10 mg Naloxone HCl (Naloxone 0.4 Mg/Ml 1 Ml Vial) 0.2 mg IV Q2M PRN PRN Reason: Opioid Reversal Ondansetron HCl (Ondansetron 4 Mg/2 Ml Vial) 4 mg IVP Q8HR PRN PRN Reason: Nausea And Vomiting Last Admin: 09/26/24 04:24 Dose: 4 mg Pantoprazole Sodium (Pantoprazole 40 Mg Tablet) 40 mg PO AC-BRKFST [facility] Last Admin: 09/27/24 06:27 Dose: 40 mg Prednisolone Acetate (Prednisolone Acetate 1% Ophth Drops 5 Ml Btl) 1 drops LEFT EYE DAILY [facility] Last Admin: 09/27/24 09:43 Dose: 1 drops Social history: Lives alone. No smoking no alcohol. Physical examination: VITAL SIGNS: 99.3, 88, 17, 169 x 69, 97% room air GENERAL: BMI 43.9, resting in bed EYES: Pupils equal. Conjunctiva luiz l. HEENT: External appearance of nose and ears normal, oral cavity grossly normal. NECK: JVD not raised; masses not palpable. HEART: First and second heart sounds are normal; no edema. LUNGS: Respiratory rate normal; clear to auscultation. ABDOMEN: Soft, minimal right upper quadrant t tenderness, liver spleen not palpable, no masses palpable. PSYCH: Alert and oriented x3; mood and affect luiz l. INVESTIGATIONS, reviewed in the clinical context: September 27: White count 7.1 hemoglobin 8.7 sodium 129 potassium 4 BUN 37 creatinine 1.6 September 25: White count 6.3 hemoglobin 9.9 platelets 192 sodium 126 potassium 4 BUN 33 creatinine 1.0 UA: Leukoesterase large WBC 44 squamous epithelial cells 2 Influenza type A, type B, RSV, COVID-19: Not detected EKG tracing personally reviewed by me-normal sinus rhythm. EKG tracing personally reviewed by me-gallstones with significantly distended gallbladder lumen without significant gallbladder wall thickening or any adjacent pericystic cholecystic fluid. Assessment plan: -Acute cholecystitis. With choledocholithiasis.: Clinically better IV ceftriaxone. General surgery-for outpatient surgical intervention. IV fluids. -Diabetes mellitus type 2 on oral hypoglycemic Metformin-hold because of increased creatinine. Follow Accu-Cheks with sliding scale insulin -Hyponatremia from decreased solute intake. With hypovolemia IV fluids -Sepsis surgical blood cultures positive for E. coli, likely from infected gallbladder Repeat blood cultures today. -Acute kidney injury likely from sepsis, causing ATN Hold off any renal offensive drugs including NSAIDs. Increase IV fluids. Follow renal function -Essential hypertension Stop Cozaar. Start clonidine 0.1 mg twice daily. Amlodipine -Glaucoma Resume home eyedrops -Full code Repeat blood cultures. Increase IV fluids. Stop NSAIDs. Discussed with patient. Follow labs. Stop Cozaar. Clonidine 0.1 mg twice daily Past Medical History Past Medical History: Asthma, Diabetes Mellitus, Hypertension, Thyroid Disorder Additional Past Medical History / Comment(s): pressure in eye History of Any Multi-Drug Resistant Organisms: None Reported Past Surgical History: Orthopedic Surgery Additional Past Surgical History / Comment(s): Cataract surgery with shut placed Past Psychological History: No Psychological Hx Reported Smoking Status: Never smoker Past Alcohol Use History: Rare Past Drug Use History: None Reported
[2024-09-27] MEDS: LACTATED RINGERS 1,000 ML IV SCH (18:52)
[2024-09-27] MEDS: cloNIDine HCL 0.1 MG TAB PO SCH (20:34)
[2024-09-28 06:14] LABS: Glucose,Whole Blood 196 mg/dL (70-110)
[2024-09-28] MEDS: INSULIN ASPART (NovoLOG) 100 UNIT/ML VIAL SQ SCH (06:37)
[2024-09-28 07:55] LABS: Basophils # (A) 0.1 k/uL (0-0.2); Basophils % (A) 1 %; Eosinophils # (A) 0.3 k/uL (0-0.7); Eosinophils % (A) 2 %; HGB 8.9 gm/dL (11.4-16.0); Hypochromasia Slight; Lymphocytes # (A) 1.1 k/uL (1.0-4.8); Lymphocytes % (A) 8 %; MCHC 31.7 g/dL (31.0-37.0); MCV 85.2 fL (80.0-100.0); Mean Platelet Volume 7.3; Monocytes # (A) 0.9 k/uL (0-1.0); Monocytes % (A) 6 %; Neutrophils # (A) 11.6 k/uL (1.3-7.7); Neutrophils % (A) 82 %; Platelet Count 270 k/uL (150-450); RBC 3.29 m/uL (3.80-5.40); RDW 13.8 % (11.5-15.5); WBC 14.2 k/uL (3.8-10.6)
[2024-09-28] MEDS: ERGOCALCIFEROL 1,250 MCG (50,000 IU) CAPSULE PO SCH (08:22)
[2024-09-28 08:26] LABS: ALT 20 U/L (4-34); AST 17 U/L (14-36); African American GFR (CKD) 44 (>60 ml/min/1.73 sqM); Albumin 3.2 g/dL (3.5-5.0); Alkaline Phosphatase 97 U/L (38-126); Anion Gap 10 mmol/L; Blood Urea Nitrogen 37 mg/dL (7-17); Calcium 8.6 mg/dL (8.4-10.2); Carbon Dioxide 23 mmol/L (22-30); Chloride 94 mmol/L (98-107); Glucose 184 mg/dL (74-99); Non-African American GFR(CKD) 38 (>60 ml/min/1.73 sqM); Potassium 4.4 mmol/L (3.5-5.1); Sodium 127 mmol/L (137-145); Total Bilirubin 0.6 mg/dL (0.2-1.3); Total Protein 6.1 g/dL (6.3-8.2)
--- NOTE | 2024-09-28 11:20 | P.PN ---
Subjective Progress Note Date: 09/28/24 SURGICAL PROGRESS NOTE CHIEF COMPLAINT: Nausea and vomiting HISTORY OF PRESENT ILLNESS: Surgical service is following in regards to cholecystitis. Patient reports that her right upper quadrant pain is improved. She has been able to tolerate diet. She had pain in the right lower quadrant left lower quadrant last night that has now resolved. She is having flatus. Afebrile. WBC is down from 17-14.2 Hgb 8.[address] Michelle is covering for Dr. Horn PHYSICAL EXAM: VITAL SIGNS: Reviewed. GENERAL: Well-developed in no acute distress. ABDOMEN: Soft. Nondistended. Tenderness to palpation right upper quadrant. No rebound or guarding. NEUROLOGIC: Alert and oriented. Cranial nerves II through XII grossly intact. ASSESSMENT: 1. cholecystitis with CT scan evidence of gallstones and significantly distended gallbladder 2. UTI and CT scan reporting nondependent gas focus within the urinary bladder lumen 3. Blood culture positive for E. coli PLAN: -Recommend outpatient cholecystectomy -Continue antibiotics per ID service -Continue low-fat diet Physician Highwall Drill Operator note has been reviewed by physician. Signing provider agrees with the documented findings, assessment, and plan of care. Objective - Vital Signs Vital signs: Vital Signs Temp 96.4 F L 09/28/24 07:25 Pulse 83 09/28/24 07:25 Resp 17 09/28/24 07:25 BP 181/79 09/28/24 07:25 Pulse Ox 94 L 09/28/24 10:20 FiO2 Intake & Output 09/27/24 09/28/24 09/28/24 18:59 06:59 18:59 Intake Total 10 550 Balance 10 550 Intake: IV 10 Invasive Line 1 10 Intake, IV Titration 550 Amount Lactated Ringers 1,000 ml 500 @ 100 mls/hr IV .Q10H [facility] Rx#:[id number] cefTRIAXone 2 gm In 50 Sodium Chloride 0.9% 50 ml @ 100 mls/hr IVPB HS [facility] Rx#:[id number] Other: Voiding Method Toilet Toilet # Voids 1 2 - Labs CBC & Chem 7: 09/28/24 06:46 09/28/24 06:46 Labs: Abnormal Lab Results - Last 24 Hours (Table) 09/28/24 09/28/24 09/28/24 Range/Units 06:12 06:46 06:46 WBC 14.2 H (3.8-10.6) k/uL RBC 3.29 L (3.80-5.40) m/uL Hgb 8.9 L (11.4-16.0) gm/dL Hct 28.0 L (34.0-46.0) % Neutrophils # 11.6 H (1.3-7.7) k/uL Sodium 127 L (137-145) mmol/L Chloride 94 L (98-107) mmol/L BUN 37 H (7-17) mg/dL Creatinine 1.45 H (0.52-1.04) mg/dL Glucose 184 H (74-99) mg/dL POC Glucose (mg/dL) 196 H (70-110) mg/dL Total Protein 6.1 L (6.3-8.2) g/dL Albumin 3.2 L (3.5-5.0) g/dL Microbiology - Last 24 Hours (Table) 09/25/24 20:35 Blood Culture Gram Stain - Final Blood Blood Culture - Final Escherichia coli Molecular ID 09/25/24 20:04 Urine Culture - Final Urine,Clean Catch Escherichia coli
[2024-09-28 11:40] LABS: Glucose,Whole Blood 233 mg/dL (70-110)
--- NOTE | 2024-09-28 13:16 | P.PN ---
Progress Note - Text Progress Note Date: 09/28/24 Chief Complaint: Nausea vomiting 64-year-old patient who follows with Dr. Sammi Benitez. 6 days ago patient started with nausea vomiting. Initially she thought it was getting a UTI a day prior and then the symptoms started. Decreased bowel movements but took laxatives. No abdominal pain. Did reply have some fever. Only to take some liquids down. Little bowel movement. This morning had a banana. September 27: Patient's blood cultures come back positive for E. coli. Getting IV ceftriaxone. Repeat blood culture ordered. Improved abdominal pain. On a soft diet. Last low-grade fever yesterday morning.Patient increase activity. Per surgery outpatient surgical intervention. Discussed with the patient the importance of repeat blood cultures to make sure is coming negative. No nausea vomiting. Patient's creatinine has bumped up to 1.6.. Ketorolac, naproxen,. Increase IV fluids to 100 cc an hour. September 28: Feeling better. Slight right upper quadrant discomfort. Tolerating diet. No bowel movement. No fever no chills. Repeat blood cultures pending. Discussed with patient. Getting IV ceftriaxone. White count coming down. Slight improvement in renal function. 127. Active Medications Acetaminophen (Acetaminophen Tab 325 Mg Tab) 650 mg PO Q6HR PRN PRN Reason: Mild Pain or Fever > 100.5 Last Admin: 09/26/24 04:22 Dose: 650 mg Amlodipine Besylate (Amlodipine 5 Mg Tab) 5 mg PO DAILY [facility] Last Admin: 09/28/24 08:22 Dose: 5 mg Artificial Tears (Artificial Tears-Hypromellose Drops 15 Ml Btl) 1 drops BOTH EYES QID [facility] Last Admin: 09/28/24 08:23 Dose: 1 drops Brimonidine Tartrate (Brimonidine Tartrate 0.2% Drops 5 Ml Btl) 1 drops LEFT EYE BID [facility] Last Admin: 09/28/24 08:23 Dose: 1 drops Clonidine (Clonidine Hcl 0.1 Mg Tab) 0.1 mg PO BID [facility] Last Admin: 09/28/24 08:22 Dose: 0.1 mg Dorzolamide HCl (Dorzolamide Hcl 2% Drops 10 Ml Btl) 1 drops LEFT EYE BID [facility] Last Admin: 09/28/24 08:23 Dose: 1 drops Enoxaparin Sodium (Enoxaparin 40 Mg/0.4 Ml Syringe) 40 mg SQ DAILY [facility] Ergocalciferol (Ergocalciferol 1,250 Mcg (50,000 Iu) Capsule) 1,250 mcg PO We@0900 [facility] Last Admin: 09/28/24 08:22 Dose: 1,250 mcg Ceftriaxone Sodium 2 gm/ (Sodium Chloride) 50 mls @ 100 mls/hr IVPB [facility]; Protocol Last Admin: 09/27/24 20:34 Dose: 100 mls/hr Lactated Ringer's (Lactated Ringers) 1,000 mls @ 100 mls/hr IV .Q10H [facility] Last Admin: 09/28/24 08:32 Dose: Not Given Insulin Aspart (Insulin Aspart (Novolog) 100 Unit/Ml Vial) 0 unit SQ [facility]; Protocol Last Admin: 09/28/24 11:48 Dose: 4 unit Latanoprost (Latanoprost 0.005% Ophth Drops 2.5 Ml Btl) 1 drops LEFT EYE [facility] Last Admin: 09/27/24 20:44 Dose: 1 drops Metoclopramide HCl (Metoclopramide 5 Mg/Ml 2 Ml Vial) 10 mg IVP Q6HR PRN PRN Reason: Nausea And Vomiting Last Admin: 09/25/24 21:27 Dose: 10 mg Naloxone HCl (Naloxone 0.4 Mg/Ml 1 Ml Vial) 0.2 mg IV Q2M PRN PRN Reason: Opioid Reversal Ondansetron HCl (Ondansetron 4 Mg/2 Ml Vial) 4 mg IVP Q8HR PRN PRN Reason: Nausea And Vomiting Last Admin: 09/26/24 04:24 Dose: 4 mg Pantoprazole Sodium (Pantoprazole 40 Mg Tablet) 40 mg PO AC-BRKFST [facility] Last Admin: 09/28/24 06:37 Dose: 40 mg Prednisolone Acetate (Prednisolone Acetate 1% Ophth Drops 5 Ml Btl) 1 drops LEFT EYE DAILY [facility] Last Admin: 09/28/24 08:24 Dose: 1 drops Social history: Lives alone. No smoking no alcohol. Physical examination: VITAL SIGNS: 96.4, 83, 17, 181 x 79, 97% on 2 L GENERAL: BMI 43.9, sitting at the edge of the bed EYES: Pupils equal. Conjunctiva luiz l. HEENT: External appearance of nose and ears normal, oral cavity grossly normal. NECK: JVD not raised; masses not palpable. HEART: First and second heart sounds are normal; no edema. LUNGS: Respiratory rate normal; clear to auscultation. ABDOMEN: Soft, minimal right upper quadrant t tenderness, liver spleen not palpable, no masses palpable. PSYCH: Alert and oriented x3; mood and affect luiz l. INVESTIGATIONS, reviewed in the clinical context: September 28: White count 14.2 hemoglobin 8.9 sodium 127 potassium 4.4 BUN 37 creatinine 1.45 September 27: White count 7.1 hemoglobin 8.7 sodium 129 potassium 4 BUN 37 creatinine 1.6 September 25: White count 6.3 hemoglobin 9.9 platelets 192 sodium 126 potassium 4 BUN 33 creatinine 1.0 UA: Leukoesterase large WBC 44 squamous epithelial cells 2 Influenza type A, type B, RSV, COVID-19: Not detected EKG tracing personally reviewed by me-normal sinus rhythm. EKG tracing personally reviewed by me-gallstones with significantly distended gallbladder lumen without significant gallbladder wall thickening or any adjacent pericystic cholecystic fluid. Assessment plan: -Acute cholecystitis. With choledocholithiasis.: Clinically better IV ceftriaxone. General surgery-for outpatient surgical intervention. IV fluids. -Diabetes mellitus type 2 on oral hypoglycemic Metformin-hold because of increased creatinine. Follow Accu-Cheks with sliding scale insulin -Hyponatremia from decreased solute intake. With hypovolemia: Slow to respond IV fluids -Sepsis surgical blood cultures positive for E. coli, likely from infected gallbladder Repeat blood cultures pending -Acute kidney injury likely from sepsis, causing ATN: Slow improvement Hold off any renal offensive drugs including NSAIDs. Continue IV fluids Follow renal function -Essential hypertension Stop Cozaar. Start clonidine 0.1 mg twice daily. Amlodipine -Glaucoma Resume home eyedrops -Full code Check manual blood pressure. Continue with IV ceftriaxone. Was started on clonidine yesterday. Repeat blood cultures pending. Patient to avoid free fluid. Follow labs Past Medical History Past Medical History: Asthma, Diabetes Mellitus, Hypertension, Thyroid Disorder Additional Past Medical History / Comment(s): pressure in eye History of Any Multi-Drug Resistant Organisms: None Reported Past Surgical History: Orthopedic Surgery Additional Past Surgical History / Comment(s): Cataract surgery with shut placed Past Psychological History: No Psychological Hx Reported Smoking Status: Never smoker Past Alcohol Use History: Rare Past Drug Use History: None Reported
[2024-09-28 16:35] LABS: Glucose,Whole Blood 162 mg/dL (70-110)
[2024-09-28 20:08] LABS: Glucose,Whole Blood 212 mg/dL (70-110)
[2024-09-29 05:59] LABS: Glucose,Whole Blood 194 mg/dL (70-110)
[2024-09-29 06:05] LABS: Basophils # (A) 0.1 k/uL (0-0.2); Basophils % (A) 1 %; Eosinophils # (A) 0.3 k/uL (0-0.7); Eosinophils % (A) 3 %; HCT 26.4 % (34.0-46.0); HGB 8.4 gm/dL (11.4-16.0); Hypochromasia Slight; Lymphocytes # (A) 1.2 k/uL (1.0-4.8); Lymphocytes % (A) 11 %; MCH 26.7 pg (25.0-35.0); MCHC 31.7 g/dL (31.0-37.0); MCV 84.2 fL (80.0-100.0); Monocytes # (A) 0.7 k/uL (0-1.0); Monocytes % (A) 6 %; Neutrophils # (A) 8.7 k/uL (1.3-7.7); Neutrophils % (A) 76 %; Platelet Count 298 k/uL (150-450); RBC 3.14 m/uL (3.80-5.40); RDW 13.8 % (11.5-15.5); WBC 11.4 k/uL (3.8-10.6)
[2024-09-29 06:49] LABS: African American GFR (CKD) 57 (>60 ml/min/1.73 sqM); Anion Gap 8 mmol/L; Blood Urea Nitrogen 34 mg/dL (7-17); Calcium 8.7 mg/dL (8.4-10.2); Carbon Dioxide 26 mmol/L (22-30); Chloride 93 mmol/L (98-107); Glucose 186 mg/dL (74-99); Non-African American GFR(CKD) 49 (>60 ml/min/1.73 sqM); Potassium 4.2 mmol/L (3.5-5.1); Sodium 127 mmol/L (137-145)
--- NOTE | 2024-09-29 07:58 | P.PN ---
Subjective Progress Note Date: 09/28/24 Principal diagnosis: Reason for follow-up is cystitis UTI bacteremia Patient is a 64-year-old female with a past medical history significant diabetes mellitus hypertension asthma thyroid disorder presenting to the hospital for evaluation of nausea and vomiting patient did have a CT abdominal pelvis concerning for cholelithiasis distended gallbladder and some air within the urinary bladder concerning for possible emphysematous cystitis subsequent blood culture positive for E. coli. On today's evaluation that is 09/28/2024,the patient denies any fever or any chills, patient is breathing comfortably on room air, the patient denies chest pain shortness of breath and no significant cough, patient did have some improvement in abdominal pain and denies nausea vomiting or diarrhea. Patient white count is down to 14.2, creatinine is 1.45 blood and urine with an E. coli sensitive pathogen blood culture repeat so far pending Objective - Vital Signs Vital signs: Vital Signs Temp 96.4 F L 09/28/24 07:25 Pulse 83 09/28/24 07:25 Resp 17 09/28/24 07:25 BP 181/79 09/28/24 07:25 Pulse Ox 94 L 09/28/24 10:20 FiO2 Intake & Output 09/27/24 09/28/24 09/28/24 18:59 06:59 18:59 Intake Total 10 550 Balance 10 550 Intake: IV 10 Invasive Line 1 10 Intake, IV Titration 550 Amount Lactated Ringers 1,000 ml 500 @ 100 mls/hr IV .Q10H [facility] Rx#:[id number] cefTRIAXone 2 gm In 50 Sodium Chloride 0.9% 50 ml @ 100 mls/hr IVPB [facility] Rx#:[id number] Other: Voiding Method Toilet Toilet # Voids 1 2 - Exam GENERAL DESCRIPTION: Middle-age female up in bed in no distress RESPIRATORY SYSTEM: Unlabored breathing , decreased breath sounds at bases HEART: S1 S2 regular rate and rhythm , ABDOMEN: Soft , no tenderness EXTREMITIES: No edema feet - Labs CBC & Chem 7: 09/29/24 05:30 09/29/24 05:30 Labs: Abnormal Lab Results - Last 24 Hours (Table) 09/28/24 09/28/24 09/28/24 Range/Units 06:12 06:46 06:46 WBC 14.2 H (3.8-10.6) k/uL RBC 3.29 L (3.80-5.40) m/uL Hgb 8.9 L (11.4-16.0) gm/dL Hct 28.0 L (34.0-46.0) % Neutrophils # 11.6 H (1.3-7.7) k/uL Sodium 127 L (137-145) mmol/L Chloride 94 L (98-107) mmol/L BUN 37 H (7-17) mg/dL Creatinine 1.45 H (0.52-1.04) mg/dL Glucose 184 H (74-99) mg/dL POC Glucose (mg/dL) 196 H (70-110) mg/dL Total Protein 6.1 L (6.3-8.2) g/dL Albumin 3.2 L (3.5-5.0) g/dL 09/28/24 Range/Units 11:39 WBC (3.8-10.6) k/uL RBC (3.80-5.40) m/uL Hgb (11.4-16.0) gm/dL Hct (34.0-46.0) % Neutrophils # (1.3-7.7) k/uL Sodium (137-145) mmol/L Chloride (98-107) mmol/L BUN (7-17) mg/dL Creatinine (0.52-1.04) mg/dL Glucose (74-99) mg/dL POC Glucose (mg/dL) 233 H (70-110) mg/dL Total Protein (6.3-8.2) g/dL Albumin (3.5-5.0) g/dL Microbiology - Last 24 Hours (Table) 09/25/24 20:35 Blood Culture Gram Stain - Final Blood Blood Culture - Final Escherichia coli Molecular ID 09/25/24 20:04 Urine Culture - Final Urine,Clean Catch Escherichia coli Assessment and Plan (1) Allergy to multiple antibiotics Current Visit: Yes Status: Acute Code(s): Z88.1 - ALLERGY STATUS TO OTHER ANTIBIOTIC AGENTS SNOMED Code(s): 536724807 (2) Emphysematous cystitis Current Visit: Yes Status: Acute Code(s): N30.80 - OTHER CYSTITIS WITHOUT HEMATURIA SNOMED Code(s): 35172206 (3) UTI (urinary tract infection) Current Visit: Yes Status: Acute Code(s): N39.0 - URINARY TRACT INFECTION, SITE NOT SPECIFIED SNOMED Code(s): 04956102 (4) Bacteremia due to Escherichia coli Current Visit: Yes Status: Acute Code(s): R78.81 - BACTEREMIA; B96.20 - UNSP ESCHERICHIA COLI THE CAUSE [facility]EASES [facility] SNOMED Code(s): 072201993194 (5) Leukocytosis Current Visit: Yes Status: Acute Code(s): D72.829 - ELEVATED WHITE BLOOD CELL COUNT, UNSPECIFIED SNOMED Code(s): 214757014 Plan: 1patient presented to hospital with nausea vomiting not feeling well and did have a urinary symptoms of burning frequency few days ago did have significantly positive UA with abnormal CT concerning for gas in the bladder and this patient has not been catheterized concerning for possible emphysematous cystitis she did have abnormality seen on the CT of the gallbladder but no significant right upper quadrant tenderness 2-patient with multiple antibiotic ALLERGIES that would limit the number of antibiotic safe to use 3-patient with E. coli bacteremia source likely urinary 4patient is afebrile the patient white count is trending down repeat blood cultures so far negative will be treated with Rocephin while inpatient finishing therapy with oral antibiotics Dictation was produced using [employer] dictation software. please excuse any grammatical, word or spelling errors.
[2024-09-29] MEDS: ENOXAPARIN 40 MG/0.4 ML SYRINGE SQ SCH (08:07)
[2024-09-29 11:26] LABS: Glucose,Whole Blood 241 mg/dL (70-110)
--- NOTE | 2024-09-29 13:53 | P.PN ---
Subjective Progress Note Date: 09/29/24 Principal diagnosis: Reason for follow-up is cystitis UTI bacteremia Patient is a 64-year-old female with a past medical history significant diabetes mellitus hypertension asthma thyroid disorder presenting to the hospital for evaluation of nausea and vomiting patient did have a CT abdominal pelvis concerning for cholelithiasis distended gallbladder and some air within the urinary bladder concerning for possible emphysematous cystitis subsequent blood culture positive for E. coli. On today's evaluation that is 09/29/2024,the patient remains to be afebrile, patient is on room air not requiring supplemental oxygen and denies any shortness of breath no chest pain or cough.Patient denies having any nausea or vomiting, right-sided abdominal pain has decreased in intensity and no diarrhea has been reported. Patient white count is down to 11.4, creatinine is 1.18 blood culture repeat has been negative so far Objective - Vital Signs Vital signs: Vital Signs Temp 97.9 F 09/29/24 07:11 Pulse 80 09/29/24 07:11 Resp 16 09/29/24 07:11 BP 167/79 09/29/24 07:11 Pulse Ox 98 09/29/24 10:56 FiO2 Intake & Output 09/28/24 09/29/24 09/29/24 18:59 06:59 18:59 Intake Total 10 Balance 10 Intake: IV 10 Invasive Line 1 10 Other: Voiding Method Toilet Toilet # Voids 3 2 - Exam GENERAL DESCRIPTION: Middle-age female up in bed in no distress RESPIRATORY SYSTEM: Unlabored breathing , decreased breath sounds at bases HEART: S1 S2 regular rate and rhythm , ABDOMEN: Soft , no tenderness EXTREMITIES: No edema feet - Labs CBC & Chem 7: 09/29/24 05:30 09/29/24 05:30 Labs: Abnormal Lab Results - Last 24 Hours (Table) 09/28/24 09/28/24 09/29/24 Range/Units 16:33 20:06 05:30 WBC 11.4 H (3.8-10.6) k/uL RBC 3.14 L (3.80-5.40) m/uL Hgb 8.4 L (11.4-16.0) gm/dL Hct 26.4 L (34.0-46.0) % Neutrophils # 8.7 H (1.3-7.7) k/uL Sodium (137-145) mmol/L Chloride (98-107) mmol/L BUN (7-17) mg/dL Creatinine (0.52-1.04) mg/dL Glucose (74-99) mg/dL POC Glucose (mg/dL) 162 H 212 H (70-110) mg/dL 09/29/24 09/29/24 09/29/24 Range/Units 05:30 05:57 11:22 WBC (3.8-10.6) k/uL RBC (3.80-5.40) m/uL Hgb (11.4-16.0) gm/dL Hct (34.0-46.0) % Neutrophils # (1.3-7.7) k/uL Sodium 127 L (137-145) mmol/L Chloride 93 L (98-107) mmol/L BUN 34 H (7-17) mg/dL Creatinine 1.18 H (0.52-1.04) mg/dL Glucose 186 H (74-99) mg/dL POC Glucose (mg/dL) 194 H 241 H (70-110) mg/dL Microbiology - Last 24 Hours (Table) 09/27/24 12:09 Blood Culture - Preliminary Blood Assessment and Plan (1) Allergy to multiple antibiotics Current Visit: Yes Status: Acute Code(s): Z88.1 - ALLERGY STATUS TO OTHER ANTIBIOTIC AGENTS SNOMED Code(s): 266217849 (2) Emphysematous cystitis Current Visit: Yes Status: Acute Code(s): N30.80 - OTHER CYSTITIS WITHOUT HEMATURIA SNOMED Code(s): 72109706 (3) UTI (urinary tract infection) Current Visit: Yes Status: Acute Code(s): N39.0 - URINARY TRACT INFECTION, SITE NOT SPECIFIED SNOMED Code(s): 87491709 (4) Bacteremia due to Escherichia coli Current Visit: Yes Status: Acute Code(s): R78.81 - BACTEREMIA; B96.20 - UNSP ESCHERICHIA COLI THE CAUSE OF DISEASES [facility] SNOMED Code(s): 329152748227 (5) Leukocytosis Current Visit: Yes Status: Acute Code(s): D72.829 - ELEVATED WHITE BLOOD CELL COUNT, UNSPECIFIED SNOMED Code(s): 339506123 Plan: 1patient presented to hospital with nausea vomiting not feeling well and did have a urinary symptoms of burning frequency few days ago did have significantly positive UA with abnormal CT concerning for gas in the bladder and this patient has not been catheterized concerning for possible emphysematous cystitis she did have abnormality seen on the CT of the gallbladder but no significant right upper quadrant tenderness 2-patient with multiple antibiotic ALLERGIES that would limit the number of antibiotic safe to use 3-patient with E. coli bacteremia source likely urinary, repeat blood culture has been negative 4patient is afebrile the patient white count is trending down to 11,000, patient responding to Rocephin who will be able to finish therapy with oral Ceftin multiple question answered Dictation was produced using [employer] dictation software. please excuse any grammatical, word or spelling errors. Time with Patient: Less than 30
--- NOTE | 2024-09-29 14:12 | P.PN ---
Subjective Progress Note Date: 09/29/24 SURGICAL PROGRESS NOTE CHIEF COMPLAINT: Nausea and vomiting HISTORY OF PRESENT ILLNESS: Surgical service is following in regards to cholecystitis. Patient did have pain last night in her back and up into the shoulder. She is mildly tender in the right upper quadrant. Overall patient reports that she is feeling better since admission. She denies any nausea or vomiting. Repeat blood cultures negative. Afebrile. White count trending down from 14-11 PHYSICAL EXAM: VITAL SIGNS: Reviewed. GENERAL: Well-developed in no acute distress. ABDOMEN: Soft. Nondistended. Tenderness to palpation right upper quadrant. No rebound or guarding. NEUROLOGIC: Alert and oriented. Cranial nerves II through XII grossly intact. ASSESSMENT: 1. cholecystitis with CT scan evidence of gallstones and significantly distended gallbladder 2. UTI 3. Blood culture positive for E. coli PLAN: -Recommend outpatient cholecystectomy versus possible inpatient lap cholecystectomy on Thursday -Continue antibiotics per ID service -Continue low-fat diet Physician Drawer In Jacquard Loom note has been reviewed by physician. Signing provider agrees with the documented findings, assessment, and plan of care. Objective - Vital Signs Vital signs: Vital Signs Temp 97.9 F 09/29/24 07:11 Pulse 80 09/29/24 07:11 Resp 16 09/29/24 07:11 BP 167/79 09/29/24 07:11 Pulse Ox 98 09/29/24 10:56 FiO2 Intake & Output 09/28/24 09/29/24 09/29/24 18:59 06:59 18:59 Intake Total 10 Balance 10 Intake: IV 10 Invasive Line 1 10 Other: Voiding Method Toilet Toilet # Voids 3 2 - Labs CBC & Chem 7: 09/29/24 05:30 09/29/24 05:30 Labs: Abnormal Lab Results - Last 24 Hours (Table) 09/28/24 09/28/24 09/29/24 Range/Units 16:33 20:06 05:30 WBC 11.4 H (3.8-10.6) k/uL RBC 3.14 L (3.80-5.40) m/uL Hgb 8.4 L (11.4-16.0) gm/dL Hct 26.4 L (34.0-46.0) % Neutrophils # 8.7 H (1.3-7.7) k/uL Sodium (137-145) mmol/L Chloride (98-107) mmol/L BUN (7-17) mg/dL Creatinine (0.52-1.04) mg/dL Glucose (74-99) mg/dL POC Glucose (mg/dL) 162 H 212 H (70-110) mg/dL 09/29/24 09/29/24 09/29/24 Range/Units 05:30 05:57 11:22 WBC (3.8-10.6) k/uL RBC (3.80-5.40) m/uL Hgb (11.4-16.0) gm/dL Hct (34.0-46.0) % Neutrophils # (1.3-7.7) k/uL Sodium 127 L (137-145) mmol/L Chloride 93 L (98-107) mmol/L BUN 34 H (7-17) mg/dL Creatinine 1.18 H (0.52-1.04) mg/dL Glucose 186 H (74-99) mg/dL POC Glucose (mg/dL) 194 H 241 H (70-110) mg/dL Microbiology - Last 24 Hours (Table) 09/27/24 12:09 Blood Culture - Preliminary Blood
[2024-09-29 17:14] LABS: Glucose,Whole Blood 149 mg/dL (70-110)
[2024-09-29 19:21] LABS: Glucose,Whole Blood 204 mg/dL (70-110)
--- NOTE | 2024-09-29 19:29 | P.PN ---
Progress Note - Text Progress Note Date: 09/29/24 Chief Complaint: Nausea vomiting 64-year-old patient who follows with Dr. Sammi Benitez. 6 days ago patient started with nausea vomiting. Initially she thought it was getting a UTI a day prior and then the symptoms started. Decreased bowel movements but took laxatives. No abdominal pain. Did reply have some fever. Only to take some liquids down. Little bowel movement. This morning had a banana. September 27: Patient's blood cultures come back positive for E. coli. Getting IV ceftriaxone. Repeat blood culture ordered. Improved abdominal pain. On a soft diet. Last low-grade fever yesterday morning.Patient increase activity. Per surgery outpatient surgical intervention. Discussed with the patient the importance of repeat blood cultures to make sure is coming negative. No nausea vomiting. Patient's creatinine has bumped up to 1.6.. Ketorolac, naproxen,. Increase IV fluids to 100 cc an hour. September 28: Feeling better. Slight right upper quadrant discomfort. Tolerating diet. No bowel movement. No fever no chills. Repeat blood cultures pending. Discussed with patient. Getting IV ceftriaxone. White count coming down. Slight improvement in renal function. 127. September 29: Minimal right upper quadrant pain. Tolerating diet. Pending repeat blood cultures. On IV ceftriaxone. Patient been drinking excessive fluid. Balanced oral intake of water discussed. Creatinine coming down to 1.18. Patient ambulating. Active Medications Acetaminophen (Acetaminophen Tab 325 Mg Tab) 650 mg PO Q6HR PRN PRN Reason: Mild Pain or Fever > 100.5 Last Admin: 09/26/24 04:22 Dose: 650 mg Amlodipine Besylate (Amlodipine 5 Mg Tab) 5 mg PO DAILY [facility] Last Admin: 09/29/24 08:07 Dose: 5 mg Artificial Tears (Artificial Tears-Hypromellose Drops 15 Ml Btl) 1 drops BOTH EYES QID [facility] Last Admin: 09/29/24 17:46 Dose: 1 drops Brimonidine Tartrate (Brimonidine Tartrate 0.2% Drops 5 Ml Btl) 1 drops LEFT EYE BID [facility] Last Admin: 09/29/24 08:08 Dose: 1 drops Clonidine (Clonidine Hcl 0.1 Mg Tab) 0.1 mg PO BID [facility] Last Admin: 09/29/24 08:07 Dose: 0.1 mg Dorzolamide HCl (Dorzolamide Hcl 2% Drops 10 Ml Btl) 1 drops LEFT EYE BID [facility] Last Admin: 09/29/24 08:09 Dose: 1 drops Enoxaparin Sodium (Enoxaparin 40 Mg/0.4 Ml Syringe) 40 mg SQ DAILY [facility] Last Admin: 09/29/24 08:07 Dose: 40 mg Ergocalciferol (Ergocalciferol 1,250 Mcg (50,000 Iu) Capsule) 1,250 mcg PO We@0900 [facility] Last Admin: 09/28/24 08:22 Dose: 1,250 mcg Ceftriaxone Sodium 2 gm/ (Sodium Chloride) 50 mls @ 100 mls/hr IVPB HS [facility]; Protocol Last Admin: 09/28/24 20:37 Dose: 100 mls/hr Lactated Ringer's (Lactated Ringers) 1,000 mls @ 100 mls/hr IV .Q10H [facility] Last Admin: 09/29/24 17:41 Dose: Not Given Insulin Aspart (Insulin Aspart (Novolog) 100 Unit/Ml Vial) 0 unit SQ ACHS [facility]; Protocol Last Admin: 09/29/24 17:40 Dose: Not Given Latanoprost (Latanoprost 0.005% Ophth Drops 2.5 Ml Btl) 1 drops LEFT EYE [facility] Last Admin: 09/28/24 20:39 Dose: 1 drops Metoclopramide HCl (Metoclopramide 5 Mg/Ml 2 Ml Vial) 10 mg IVP Q6HR PRN PRN Reason: Nausea And Vomiting Last Admin: 09/25/24 21:27 Dose: 10 mg Naloxone HCl (Naloxone 0.4 Mg/Ml 1 Ml Vial) 0.2 mg IV Q2M PRN PRN Reason: Opioid Reversal Ondansetron HCl (Ondansetron 4 Mg/2 Ml Vial) 4 mg IVP Q8HR PRN PRN Reason: Nausea And Vomiting Last Admin: 09/26/24 04:24 Dose: 4 mg Pantoprazole Sodium (Pantoprazole 40 Mg Tablet) 40 mg PO AC-BRKFST [facility] Last Admin: 09/29/24 06:33 Dose: 40 mg Prednisolone Acetate (Prednisolone Acetate 1% Ophth Drops 5 Ml Btl) 1 drops LEFT EYE DAILY [facility] Last Admin: 09/29/24 08:10 Dose: 1 drops Social history: Lives alone. No smoking no alcohol. Physical examination: VITAL SIGNS: 97.6, 78, 20, 150 x 67, 93% room air GENERAL: BMI 43.9, comfortable sitting at edge of the bed EYES: Pupils equal. Conjunctiva luiz l. HEENT: External appearance of nose and ears normal, oral cavity grossly normal. NECK: JVD not raised; masses not palpable. HEART: First and second heart sounds are normal; no edema. LUNGS: Respiratory rate normal; clear to auscultation. ABDOMEN: Soft, minimal right upper quadrant t tenderness, liver spleen not palpable, no masses palpable. PSYCH: Alert and oriented x3; mood and affect luiz l. INVESTIGATIONS, reviewed in the clinical context: September 29: White count 11.4 hemoglobin 8.4 platelets 28 potassium 4.2 sodium 127 BUN 34 creatinine 1.18 0.4 hemoglobin 8.4 platelets 298 sodium 127 potassium 4.2 BUN 34 creatinine 1.18 September 28: White count 14.2 hemoglobin 8.9 sodium 127 potassium 4.4 BUN 37 creatinine 1.45 September 27: White count 7.1 hemoglobin 8.7 sodium 129 potassium 4 BUN 37 creatinine 1.6 September 25: White count 6.3 hemoglobin 9.9 platelets 192 sodium 126 potassium 4 BUN 33 creatinine 1.0 UA: Leukoesterase large WBC 44 squamous epithelial cells 2 Influenza type A, type B, RSV, COVID-19: Not detected EKG tracing personally reviewed by me-normal sinus rhythm. EKG tracing personally reviewed by me-gallstones with significantly distended gallbladder lumen without significant gallbladder wall thickening or any adjacent pericystic cholecystic fluid. Assessment plan: -Acute cholecystitis. With choledocholithiasis.: Clinically much better IV ceftriaxone. General surgery-for outpatient surgical intervention. IV fluids. -Diabetes mellitus type 2 on oral hypoglycemic Metformin-hold because of increased creatinine. Follow Accu-Cheks with sliding scale insulin -Hyponatremia from decreased solute intake. With hypovolemia: Slow to respond IV fluids. Avoid free fluid. Discussed with patient. -Sepsis: Blood cultures positive for E. coli, likely from infected gallbladder Repeat blood cultures pending -Acute kidney injury likely from sepsis, causing ATN: Improving Creatinine had gone up to 1.6 from 1.0. Down to 1.18 Hold off any renal offensive drugs including NSAIDs. Continue IV fluids Follow renal function -Essential hypertension Stop Cozaar. clonidine 0.1 mg twice daily. Amlodipine -Glaucoma Resume home eyedrops -Full code Fluid restriction discussed with the patient. Repeat labs. Continue antibiotics. Repeating blood cultures pending. Past Medical History Past Medical History: Asthma, Diabetes Mellitus, Hypertension, Thyroid Disorder Additional Past Medical History / Comment(s): pressure in eye History of Any Multi-Drug Resistant Organisms: None Reported Past Surgical History: Orthopedic Surgery Additional Past Surgical History / Comment(s): Cataract surgery with shut placed Past Psychological History: No Psychological Hx Reported Smoking Status: Never smoker Past Alcohol Use History: Rare Past Drug Use History: None Reported
[2024-09-30 05:33] LABS: Glucose,Whole Blood 220 mg/dL (70-110)
[2024-09-30 05:58] LABS: HCT 27.4 % (34.0-46.0); HGB 8.8 gm/dL (11.4-16.0); Hypochromasia Moderate; MCH 27.4 pg (25.0-35.0); MCHC 32.2 g/dL (31.0-37.0); MCV 85.1 fL (80.0-100.0); Mean Platelet Volume 6.7; Platelet Count 355 k/uL (150-450); RBC 3.22 m/uL (3.80-5.40); RDW 13.9 % (11.5-15.5); WBC 11.6 k/uL (3.8-10.6)
[2024-09-30 06:15] LABS: African American GFR (CKD) 56 (>60 ml/min/1.73 sqM); Anion Gap 11 mmol/L; Blood Urea Nitrogen 30 mg/dL (7-17); Carbon Dioxide 24 mmol/L (22-30); Chloride 96 mmol/L (98-107); Glucose 196 mg/dL (74-99); Non-African American GFR(CKD) 48 (>60 ml/min/1.73 sqM); Potassium 4.7 mmol/L (3.5-5.1); Sodium 131 mmol/L (137-145)
[2024-09-30 08:30] LABS: Band Neutrophils % 1 %; Eosinophils # (M) 0.12 k/uL (0-0.7); Lymphocytes # (M) 3.48 k/uL (1.0-4.8); Monocytes # (M) 0.58 k/uL (0-1.0); Neutrophils % (M) 63 %; Nucleated Red Blood Cells 0 /100 WBC (0-0); Total Cells Counted 100
[2024-09-30 11:06] VITALS: BMI 43.9
--- NOTE | 2024-09-30 11:39 | P.PN ---
Progress Note - Text Progress Note Date: 09/30/24 Chief Complaint: Nausea vomiting 64-year-old patient who follows with Dr. Sammi Benitez. 6 days ago patient started with nausea vomiting. Initially she thought it was getting a UTI a day prior and then the symptoms started. Decreased bowel movements but took laxatives. No abdominal pain. Did reply have some fever. Only to take some liquids down. Little bowel movement. This morning had a banana. September 27: Patient's blood cultures come back positive for E. coli. Getting IV ceftriaxone. Repeat blood culture ordered. Improved abdominal pain. On a soft diet. Last low-grade fever yesterday morning.Patient increase activity. Per surgery outpatient surgical intervention. Discussed with the patient the importance of repeat blood cultures to make sure is coming negative. No nausea vomiting. Patient's creatinine has bumped up to 1.6.. Ketorolac, naproxen,. Increase IV fluids to 100 cc an hour. September 28: Feeling better. Slight right upper quadrant discomfort. Tolerating diet. No bowel movement. No fever no chills. Repeat blood cultures pending. Discussed with patient. Getting IV ceftriaxone. White count coming down. Slight improvement in renal function. 127. September 29: Minimal right upper quadrant pain. Tolerating diet. Pending repeat blood cultures. On IV ceftriaxone. Patient been drinking excessive fluid. Balanced oral intake of water discussed. Creatinine coming down to 1.18. Patient ambulating. September 20: Patient had some right-sided abdominal pain. Dr Horn has decided to hold the patient back to Thursday to do surgery. Hyponatremia better with fluid restriction. Discussed with patient. Continue IV ceftriaxone. Active Medications Acetaminophen (Acetaminophen Tab 325 Mg Tab) 650 mg PO Q6HR PRN PRN Reason: Mild Pain or Fever > 100.5 Last Admin: 09/26/24 04:22 Dose: 650 mg Amlodipine Besylate (Amlodipine 5 Mg Tab) 5 mg PO DAILY [facility] Last Admin: 09/30/24 08:42 Dose: 5 mg Artificial Tears (Artificial Tears-Hypromellose Drops 15 Ml Btl) 1 drops BOTH EYES QID [facility] Last Admin: 09/30/24 08:44 Dose: 1 drops Brimonidine Tartrate (Brimonidine Tartrate 0.2% Drops 5 Ml Btl) 1 drops LEFT EYE BID [facility] Last Admin: 09/30/24 08:45 Dose: 1 drops Clonidine (Clonidine Hcl 0.1 Mg Tab) 0.1 mg PO BID [facility] Last Admin: 09/30/24 08:42 Dose: 0.1 mg Dorzolamide HCl (Dorzolamide Hcl 2% Drops 10 Ml Btl) 1 drops LEFT EYE BID [facility] Last Admin: 09/30/24 08:44 Dose: 1 drops Enoxaparin Sodium (Enoxaparin 40 Mg/0.4 Ml Syringe) 40 mg SQ DAILY [facility] Last Admin: 09/30/24 08:42 Dose: 40 mg Ergocalciferol (Ergocalciferol 1,250 Mcg (50,000 Iu) Capsule) 1,250 mcg PO We@0900 [facility] Last Admin: 09/28/24 08:22 Dose: 1,250 mcg Ceftriaxone Sodium 2 gm/ (Sodium Chloride) 50 mls @ 100 mls/hr IVPB [facility]; Protocol Last Admin: 09/29/24 20:44 Dose: 100 mls/hr Lactated Ringer's (Lactated Ringers) 1,000 mls @ 100 mls/hr IV .Q10H [facility] Last Admin: 09/30/24 05:16 Dose: Not Given Insulin Aspart (Insulin Aspart (Novolog) 100 Unit/Ml Vial) 0 unit SQ [facility]; Protocol Last Admin: 09/30/24 06:22 Dose: 4 unit Latanoprost (Latanoprost 0.005% Ophth Drops 2.5 Ml Btl) 1 drops LEFT EYE [facility] Last Admin: 09/29/24 20:46 Dose: 1 drops Metoclopramide HCl (Metoclopramide 5 Mg/Ml 2 Ml Vial) 10 mg IVP Q6HR PRN PRN Reason: Nausea And Vomiting Last Admin: 09/25/24 21:27 Dose: 10 mg Naloxone HCl (Naloxone 0.4 Mg/Ml 1 Ml Vial) 0.2 mg IV Q2M PRN PRN Reason: Opioid Reversal Ondansetron HCl (Ondansetron 4 Mg/2 Ml Vial) 4 mg IVP Q8HR PRN PRN Reason: Nausea And Vomiting Last Admin: 09/26/24 04:24 Dose: 4 mg Pantoprazole Sodium (Pantoprazole 40 Mg Tablet) 40 mg PO AC-BRKFST [facility] Last Admin: 09/30/24 06:22 Dose: 40 mg Prednisolone Acetate (Prednisolone Acetate 1% Ophth Drops 5 Ml Btl) 1 drops LEFT EYE DAILY [facility] Last Admin: 09/30/24 08:44 Dose: 1 drops Social history: Lives alone. No smoking no alcohol. Physical examination: VITAL SIGNS: 98, 67, 17, 178/79, 96% room air GENERAL: BMI 43.9, comfortable sitting at edge of the bed EYES: Pupils equal. Conjunctiva luiz l. HEENT: External appearance of nose and ears normal, oral cavity grossly normal. NECK: JVD not raised; masses not palpable. HEART: First and second heart sounds are normal; no edema. LUNGS: Respiratory rate normal; clear to auscultation. ABDOMEN: Soft, minimal right upper quadrant t tenderness, liver spleen not palpable, no masses palpable. PSYCH: Alert and oriented x3; mood and affect luiz l. INVESTIGATIONS, reviewed in the clinical context: September 30: White count 11.6 hemoglobin 8.8 potassium 4.7 BUN 30 creatinine 1.19 September 29: White count 11.4 hemoglobin 8.4 platelets 28 potassium 4.2 sodium 127 BUN 34 creatinine 1.18 0.4 hemoglobin 8.4 platelets 298 sodium 127 potassium 4.2 BUN 34 creatinine 1.18 September 28: White count 14.2 hemoglobin 8.9 sodium 127 potassium 4.4 BUN 37 creatinine 1.45 September 27: White count 7.1 hemoglobin 8.7 sodium 129 potassium 4 BUN 37 creatinine 1.6 September 25: White count 6.3 hemoglobin 9.9 platelets 192 sodium 126 potassium 4 BUN 33 creatinine 1.0 UA: Leukoesterase large WBC 44 squamous epithelial cells 2 Influenza type A, type B, RSV, COVID-19: Not detected EKG tracing personally reviewed by me-normal sinus rhythm. EKG tracing personally reviewed by me-gallstones with significantly distended gallbladder lumen without significant gallbladder wall thickening or any adjacent pericystic cholecystic fluid. Assessment plan: -Acute cholecystitis. With choledocholithiasis.: IV ceftriaxone. Dr. Horn now planning for surgery on Thursday.. IV fluids. -Diabetes mellitus type 2 on oral hypoglycemic Metformin-hold because of increased creatinine. Follow Accu-Cheks with sliding scale insulin -Hyponatremia from decreased solute intake. With hypovolemia: Improving IV fluids. Avoid free fluid. Discussed with patient. -Sepsis: Blood cultures positive for E. coli, likely from infected gallbladder Repeat blood cultures pending -Acute kidney injury likely from sepsis, causing ATN: Improving Creatinine had gone up to 1.6 from 1.0. Down to 1.18 Hold off any renal offensive drugs including NSAIDs. Continue IV fluids Follow renal function -Essential hypertension Stop Cozaar. clonidine 0.1 mg twice daily. Amlodipine -Glaucoma Resume home eyedrops -Full code Cut back IV fluids. Continue IV ceftriaxone. Leonora Horn surgical intervention on Thursday. Discussed with patient. Past Medical History Past Medical History: Asthma, Diabetes Mellitus, Hypertension, Thyroid Disorder Additional Past Medical History / Comment(s): pressure in eye History of Any Multi-Drug Resistant Organisms: None Reported Past Surgical History: Orthopedic Surgery Additional Past Surgical History / Comment(s): Cataract surgery with shut placed Past Psychological History: No Psychological Hx Reported Smoking Status: Never smoker Past Alcohol Use History: Rare Past Drug Use History: None Reported
[2024-09-30 12:20] LABS: Glucose,Whole Blood 204 mg/dL (70-110)
--- NOTE | 2024-09-30 12:47 | P.PN ---
Subjective Progress Note Date: 09/30/24 SURGICAL PROGRESS NOTE CHIEF COMPLAINT: Nausea and vomiting HISTORY OF PRESENT ILLNESS: Surgical service is following in regards to cholecystitis. Patient again complained of having back pain on that right side last night. She denies any nausea or vomiting. Reports slight decreased oral intake. Afebrile. WBC staying the same at 11.6 Hgb 8.8 sodium improved 131 creatinine 1.1 9 repeat blood culture negative so far. PHYSICAL EXAM: VITAL SIGNS: Reviewed. GENERAL: Well-developed in no acute distress. ABDOMEN: Soft. Nondistended. Tenderness to palpation right upper quadrant. No rebound or guarding. NEUROLOGIC: Alert and oriented. Cranial nerves II through XII grossly intact. ASSESSMENT: 1. Cholecystitis with CT scan evidence of gallstones and significantly distended gallbladder 2. UTI 3. Blood culture positive for E. coli 4. Hyponatremia PLAN: -Will plan for laparoscopic cholecystectomy on Thursday with Dr. 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 Signing provider agrees with the documented findings, assessment, and plan of care. Objective - Vital Signs Vital signs: Vital Signs Temp 98.0 F 09/30/24 08:00 Pulse 67 09/30/24 08:00 Resp 17 09/30/24 08:00 BP 178/79 09/30/24 08:00 Pulse Ox 96 09/30/24 08:00 FiO2 Intake & Output 09/29/24 09/30/24 09/30/24 18:59 06:59 18:59 Intake Total 238 Balance 238 Weight 108.862 kg Intake: Oral 238 Other: Voiding Method Toilet Toilet # Voids 1 2 - Labs CBC & Chem 7: 09/30/24 05:24 09/30/24 05:24 Labs: Abnormal Lab Results - Last 24 Hours (Table) 09/29/24 09/29/24 09/30/24 Range/Units 17:13 19:20 05:24 WBC 11.6 H (3.8-10.6) k/uL RBC 3.22 L (3.80-5.40) m/uL Hgb 8.8 L (11.4-16.0) gm/dL Hct 27.4 L (34.0-46.0) % Sodium (137-145) mmol/L Chloride (98-107) mmol/L BUN (7-17) mg/dL Creatinine (0.52-1.04) mg/dL Glucose (74-99) mg/dL POC Glucose (mg/dL) 149 H 204 H (70-110) mg/dL 09/30/24 09/30/24 09/30/24 Range/Units 05:24 05:31 12:19 WBC (3.8-10.6) k/uL RBC (3.80-5.40) m/uL Hgb (11.4-16.0) gm/dL Hct (34.0-46.0) % Sodium 131 L (137-145) mmol/L Chloride 96 L (98-107) mmol/L BUN 30 H (7-17) mg/dL Creatinine 1.19 H (0.52-1.04) mg/dL Glucose 196 H (74-99) mg/dL POC Glucose (mg/dL) 220 H 204 H (70-110) mg/dL Microbiology - Last 24 Hours (Table) 09/27/24 12:09 Blood Culture - Preliminary Blood
[2024-09-30 17:11] LABS: Glucose,Whole Blood 187 mg/dL (70-110)
[2024-09-30 19:19] LABS: Glucose,Whole Blood 229 mg/dL (70-110)
--- NOTE | 2024-09-30 22:11 | P.PN ---
Subjective Progress Note Date: 09/30/24 Principal diagnosis: Reason for follow-up is cystitis UTI bacteremia Patient is a 64-year-old female with a past medical history significant diabetes mellitus hypertension asthma thyroid disorder presenting to the hospital for evaluation of nausea and vomiting patient did have a CT abdominal pelvis concerning for cholelithiasis distended gallbladder and some air within the urinary bladder concerning for possible emphysematous cystitis subsequent blood culture positive for E. coli. On today's evaluation that is 09/30/2024, the patient continues to be afebrile, the patient is on room air and breathing comfortably, the Pt denies having any chest pain or cough, the patient denies having any abdominal pain no vomiting or any diarrhea, mention feeling better. Patient white count is 11.6, creatinine is 1.19 Objective - Vital Signs Vital signs: Vital Signs Temp 98.0 F 09/30/24 08:00 Pulse 67 09/30/24 08:00 Resp 17 09/30/24 08:00 BP 178/79 09/30/24 08:00 Pulse Ox 96 09/30/24 08:00 FiO2 Intake & Output 09/29/24 09/30/24 09/30/24 18:59 06:59 18:59 Intake Total 238 Balance 238 Intake: Oral 238 Other: Voiding Method Toilet # Voids 1 2 - Exam GENERAL DESCRIPTION: Middle-age female up in bed in no distress RESPIRATORY SYSTEM: Unlabored breathing , decreased breath sounds at bases HEART: S1 S2 regular rate and rhythm , ABDOMEN: Soft , no tenderness EXTREMITIES: No edema feet - Labs CBC & Chem 7: 09/30/24 05:24 09/30/24 05:24 Labs: Abnormal Lab Results - Last 24 Hours (Table) 09/29/24 09/29/24 09/29/24 Range/Units 11:22 17:13 19:20 WBC (3.8-10.6) k/uL RBC (3.80-5.40) m/uL Hgb (11.4-16.0) gm/dL Hct (34.0-46.0) % Sodium (137-145) mmol/L Chloride (98-107) mmol/L BUN (7-17) mg/dL Creatinine (0.52-1.04) mg/dL Glucose (74-99) mg/dL POC Glucose (mg/dL) 241 H 149 H 204 H (70-110) mg/dL 09/30/24 09/30/24 09/30/24 Range/Units 05:24 05:24 05:31 WBC 11.6 H (3.8-10.6) k/uL RBC 3.22 L (3.80-5.40) m/uL Hgb 8.8 L (11.4-16.0) gm/dL Hct 27.4 L (34.0-46.0) % Sodium 131 L (137-145) mmol/L Chloride 96 L (98-107) mmol/L BUN 30 H (7-17) mg/dL Creatinine 1.19 H (0.52-1.04) mg/dL Glucose 196 H (74-99) mg/dL POC Glucose (mg/dL) 220 H (70-110) mg/dL Microbiology - Last 24 Hours (Table) 09/27/24 12:09 Blood Culture - Preliminary Blood Assessment and Plan (1) Allergy to multiple antibiotics Current Visit: Yes Status: Acute Code(s): Z88.1 - ALLERGY STATUS TO OTHER ANTIBIOTIC AGENTS SNOMED Code(s): 202726724 (2) Emphysematous cystitis Current Visit: Yes Status: Acute Code(s): N30.80 - OTHER CYSTITIS WITHOUT HEMATURIA SNOMED Code(s): 59656067 (3) UTI (urinary tract infection) Current Visit: Yes Status: Acute Code(s): N39.0 - URINARY TRACT INFECTION, SITE NOT SPECIFIED SNOMED Code(s): 73053022 (4) Bacteremia due to Escherichia coli Current Visit: Yes Status: Acute Code(s): R78.81 - BACTEREMIA; B96.20 - UNSP ESCHERICHIA COLI THE CAUSE OF DISEASES [facility] SNOMED Code(s): 573856228098 (5) Leukocytosis Current Visit: Yes Status: Acute Code(s): D72.829 - ELEVATED WHITE BLOOD CELL COUNT, UNSPECIFIED SNOMED Code(s): 895032794 Plan: 1patient presented to hospital with nausea vomiting not feeling well and did have a urinary symptoms of burning frequency few days ago did have significantly positive UA with abnormal CT concerning for gas in the bladder and this patient has not been catheterized concerning for possible emphysematous cystitis she did have abnormality seen on the CT of the gallbladder but no significant right upper quadrant tenderness 2-patient with multiple antibiotic ALLERGIES that would limit the number of antibiotic safe to use 3-patient with E. coli bacteremia source likely urinary, repeat blood culture has been negative 4patient is afebrile the patient white count is trending down to 11,000, patient continue with Rocephin while inpatient apparently waiting for cholecystectomy per surgery on Thursday Dictation was produced using [employer] dictation software. please excuse any grammatical, word or spelling errors.
[2024-10-01 05:24] LABS: Glucose,Whole Blood 197 mg/dL (70-110)
[2024-10-01 06:28] LABS: Basophils # (A) 0.1 k/uL (0-0.2); Basophils % (A) 1 %; Eosinophils # (A) 0.3 k/uL (0-0.7); Eosinophils % (A) 2 %; HCT 28.1 % (34.0-46.0); HGB 8.9 gm/dL (11.4-16.0); Hypochromasia Slight; Lymphocytes # (A) 1.6 k/uL (1.0-4.8); Lymphocytes % (A) 14 %; MCH 27.2 pg (25.0-35.0); MCHC 31.8 g/dL (31.0-37.0); MCV 85.3 fL (80.0-100.0); Mean Platelet Volume 7.3; Monocytes # (A) 0.7 k/uL (0-1.0); Monocytes % (A) 6 %; Neutrophils # (A) 8.8 k/uL (1.3-7.7); Neutrophils % (A) 75 %; Platelet Count 390 k/uL (150-450); RBC 3.29 m/uL (3.80-5.40); WBC 11.8 k/uL (3.8-10.6)
[2024-10-01 07:22] LABS: African American GFR (CKD) 64 (>60 ml/min/1.73 sqM); Anion Gap 10 mmol/L; Blood Urea Nitrogen 24 mg/dL (7-17); Calcium 9.1 mg/dL (8.4-10.2); Carbon Dioxide 27 mmol/L (22-30); Chloride 98 mmol/L (98-107); Glucose 189 mg/dL (74-99); Non-African American GFR(CKD) 56 (>60 ml/min/1.73 sqM); Potassium 4.5 mmol/L (3.5-5.1); Sodium 135 mmol/L (137-145)
--- NOTE | 2024-10-01 10:43 | P.PN ---
Progress Note - Text Progress Note Date: 10/01/24 Chief Complaint: Nausea vomiting 64-year-old patient who follows with Dr. Sammi Benitez. 6 days ago patient started with nausea vomiting. Initially she thought it was getting a UTI a day prior and then the symptoms started. Decreased bowel movements but took laxatives. No abdominal pain. Did reply have some fever. Only to take some liquids down. Little bowel movement. This morning had a banana. September 27: Patient's blood cultures come back positive for E. coli. Getting IV ceftriaxone. Repeat blood culture ordered. Improved abdominal pain. On a soft diet. Last low-grade fever yesterday morning.Patient increase activity. Per surgery outpatient surgical intervention. Discussed with the patient the importance of repeat blood cultures to make sure is coming negative. No nausea vomiting. Patient's creatinine has bumped up to 1.6.. Ketorolac, naproxen,. Increase IV fluids to 100 cc an hour. September 28: Feeling better. Slight right upper quadrant discomfort. Tolerating diet. No bowel movement. No fever no chills. Repeat blood cultures pending. Discussed with patient. Getting IV ceftriaxone. White count coming down. Slight improvement in renal function. 127. September 29: Minimal right upper quadrant pain. Tolerating diet. Pending repeat blood cultures. On IV ceftriaxone. Patient been drinking excessive fluid. Balanced oral intake of water discussed. Creatinine coming down to 1.18. Patient ambulating. September 30: Patient had some right-sided abdominal pain. Dr Horn has decided to hold the patient back to Thursday to do surgery. Hyponatremia better with fluid restriction. Discussed with patient. Continue IV ceftriaxone. October 01: Right side abdominal discomfort still present. Tolerating diet. Sodium coming up. IV ceftriaxone. Pending surgery on Thursday. Active Medications Acetaminophen (Acetaminophen Tab 325 Mg Tab) 650 mg PO Q6HR PRN PRN Reason: Mild Pain or Fever > 100.5 Last Admin: 09/26/24 04:22 Dose: 650 mg Amlodipine Besylate (Amlodipine 5 Mg Tab) 5 mg PO DAILY [facility] Last Admin: 10/01/24 08:33 Dose: 5 mg Artificial Tears (Artificial Tears-Hypromellose Drops 15 Ml Btl) 1 drops BOTH EYES QID [facility] Last Admin: 10/01/24 08:33 Dose: 1 drops Brimonidine Tartrate (Brimonidine Tartrate 0.2% Drops 5 Ml Btl) 1 drops LEFT EYE BID [facility] Last Admin: 10/01/24 08:32 Dose: 1 drops Clonidine (Clonidine Hcl 0.1 Mg Tab) 0.1 mg PO BID [facility] Last Admin: 10/01/24 08:33 Dose: 0.1 mg Dorzolamide HCl (Dorzolamide Hcl 2% Drops 10 Ml Btl) 1 drops LEFT EYE BID [facility] Last Admin: 10/01/24 08:32 Dose: 1 drops Enoxaparin Sodium (Enoxaparin 40 Mg/0.4 Ml Syringe) 40 mg SQ DAILY [facility] Last Admin: 10/01/24 08:33 Dose: 40 mg Ergocalciferol (Ergocalciferol 1,250 Mcg (50,000 Iu) Capsule) 1,250 mcg PO We@0900 [facility] Last Admin: 09/28/24 08:22 Dose: 1,250 mcg Ceftriaxone Sodium 2 gm/ (Sodium Chloride) 50 mls @ 100 mls/hr IVPB [facility]; Protocol Last Admin: 09/30/24 20:36 Dose: 100 mls/hr Lactated Ringer's (Lactated Ringers) 1,000 mls @ 50 mls/hr IV .Q20H [facility] Last Admin: 09/30/24 17:10 Dose: Not Given Insulin Aspart (Insulin Aspart (Novolog) 100 Unit/Ml Vial) 0 unit SQ ACHS [facility]; Protocol Last Admin: 10/01/24 05:51 Dose: 2 unit Latanoprost (Latanoprost 0.005% Ophth Drops 2.5 Ml Btl) 1 drops LEFT EYE [facility] Last Admin: 09/30/24 20:37 Dose: 1 drops Metoclopramide HCl (Metoclopramide 5 Mg/Ml 2 Ml Vial) 10 mg IVP Q6HR PRN PRN Reason: Nausea And Vomiting Last Admin: 09/25/24 21:27 Dose: 10 mg Naloxone HCl (Naloxone 0.4 Mg/Ml 1 Ml Vial) 0.2 mg IV Q2M PRN PRN Reason: Opioid Reversal Ondansetron HCl (Ondansetron 4 Mg/2 Ml Vial) 4 mg IVP Q8HR PRN PRN Reason: Nausea And Vomiting Last Admin: 09/26/24 04:24 Dose: 4 mg Pantoprazole Sodium (Pantoprazole 40 Mg Tablet) 40 mg PO AC-BRKFST [facility] Last Admin: 10/01/24 05:51 Dose: 40 mg Prednisolone Acetate (Prednisolone Acetate 1% Ophth Drops 5 Ml Btl) 1 drops LEFT EYE DAILY [facility] Last Admin: 10/01/24 08:32 Dose: 1 drops Social history: Lives alone. No smoking no alcohol. Physical examination: VITAL SIGNS: 98.6, 68, 16, 1 8183, 96% room air GENERAL: BMI 43.9, comfortable sitting at edge of the bed EYES: Pupils equal. Conjunctiva luiz l. HEENT: External appearance of nose and ears normal, oral cavity grossly normal. NECK: JVD not raised; masses not palpable. HEART: First and second heart sounds are normal; no edema. LUNGS: Respiratory rate normal; clear to auscultation. ABDOMEN: Soft, minimal right upper quadrant t tenderness, liver spleen not palpable, no masses palpable. PSYCH: Alert and oriented x3; mood and affect luiz l. INVESTIGATIONS, reviewed in the clinical context: October 01: White count 11.8 sodium 135 creatinine 1.06 September 30: White count 11.6 hemoglobin 8.8 potassium 4.7 BUN 30 creatinine 1.19 September 29: White count 11.4 hemoglobin 8.4 platelets 28 potassium 4.2 sodium 127 BUN 34 creatinine 1.18 0.4 hemoglobin 8.4 platelets 298 sodium 127 potassium 4.2 BUN 34 creatinine 1.18 September 28: White count 14.2 hemoglobin 8.9 sodium 127 potassium 4.4 BUN 37 creatinine 1.45 September 27: White count 7.1 hemoglobin 8.7 sodium 129 potassium 4 BUN 37 creatinine 1.6 September 25: White count 6.3 hemoglobin 9.9 platelets 192 sodium 126 potassium 4 BUN 33 creatinine 1.0 UA: Leukoesterase large WBC 44 squamous epithelial cells 2 Influenza type A, type B, RSV, COVID-19: Not detected EKG tracing personally reviewed by me-normal sinus rhythm. EKG tracing personally reviewed by me-gallstones with significantly distended gallbladder lumen without significant gallbladder wall thickening or any adjacent pericystic cholecystic fluid. Assessment plan: -Acute cholecystitis. With choledocholithiasis.: IV ceftriaxone. Dr. Horn now planning for surgery on Thursday.. IV fluids. -Diabetes mellitus type 2 on oral hypoglycemic Metformin-hold because of increased creatinine. Follow Accu-Cheks with sliding scale insulin -Hyponatremia from decreased solute intake. With hypovolemia: Improving IV fluids. Avoid free fluid. Discussed with patient. -Sepsis: Blood cultures positive for E. coli, likely from infected gallbladder Repeat blood cultures pending -Acute kidney injury likely from sepsis, causing ATN: Improving Creatinine had gone up to 1.6 from 1.0. Down to 1.18 Hold off any renal offensive drugs including NSAIDs. Continue IV fluids Follow renal function -Essential hypertension Stop Cozaar. clonidine 0.1 mg twice daily. Amlodipine -Glaucoma Resume home eyedrops -Full code Surgery on Thursday. Continue current medications. Past Medical History Past Medical History: Asthma, Diabetes Mellitus, Hypertension, Thyroid Disorder Additional Past Medical History / Comment(s): pressure in eye History of Any Multi-Drug Resistant Organisms: None Reported Past Surgical History: Orthopedic Surgery Additional Past Surgical History / Comment(s): Cataract surgery with shut placed Past Psychological History: No Psychological Hx Reported Smoking Status: Never smoker Past Alcohol Use History: Rare Past Drug Use History: None Reported
[2024-10-01 12:32] LABS: Glucose,Whole Blood 249 mg/dL (70-110)
--- NOTE | 2024-10-01 16:39 | P.PN ---
Subjective Progress Note Date: 10/01/24 Principal diagnosis: Reason for follow-up is cystitis UTI bacteremia Patient is a 64-year-old female with a past medical history significant diabetes mellitus hypertension asthma thyroid disorder presenting to the hospital for evaluation of nausea and vomiting patient did have a CT abdominal pelvis concerning for cholelithiasis distended gallbladder and some air within the urinary bladder concerning for possible emphysematous cystitis subsequent blood culture positive for E. coli. On today's evaluation that is 10/01/2024, patient did not have any fever and denies any chills, patient is breathing comfortably on room air, patient with no chest pain or cough patient did not have any abdominal pain nausea vomiting or any loose stools. Patient white count is 11.8, creatinine 1.06 blood culture repeat has been negative Objective - Vital Signs Vital signs: Vital Signs Temp 98.2 F 10/01/24 14:00 Pulse 66 10/01/24 14:00 Resp 16 10/01/24 14:00 BP 162/114 10/01/24 14:00 Pulse Ox 98 10/01/24 14:00 FiO2 Intake & Output 09/30/24 10/01/24 10/01/24 18:59 06:59 18:59 Intake Total 60 Balance 60 Weight 108.862 kg Intake: Oral 60 Other: Voiding Method Toilet Toilet Toilet # Voids 1 2 - Exam GENERAL DESCRIPTION: Middle-age female up in bed in no distress RESPIRATORY SYSTEM: Unlabored breathing , decreased breath sounds at bases HEART: S1 S2 regular rate and rhythm , ABDOMEN: Soft , no tenderness EXTREMITIES: No edema feet - Labs CBC & Chem 7: 10/01/24 05:20 10/01/24 05:20 Labs: Abnormal Lab Results - Last 24 Hours (Table) 09/30/24 09/30/24 10/01/24 Range/Units 17:09 19:18 05:20 WBC (3.8-10.6) k/uL RBC (3.80-5.40) m/uL Hgb (11.4-16.0) gm/dL Hct (34.0-46.0) % Neutrophils # (1.3-7.7) k/uL Sodium 135 L (137-145) mmol/L BUN 24 H (7-17) mg/dL Creatinine 1.06 H (0.52-1.04) mg/dL Glucose 189 H (74-99) mg/dL POC Glucose (mg/dL) 187 H 229 H (70-110) mg/dL 10/01/24 10/01/24 10/01/24 Range/Units 05:20 05:23 12:30 WBC 11.8 H (3.8-10.6) k/uL RBC 3.29 L (3.80-5.40) m/uL Hgb 8.9 L (11.4-16.0) gm/dL Hct 28.1 L (34.0-46.0) % Neutrophils # 8.8 H (1.3-7.7) k/uL Sodium (137-145) mmol/L BUN (7-17) mg/dL Creatinine (0.52-1.04) mg/dL Glucose (74-99) mg/dL POC Glucose (mg/dL) 197 H 249 H (70-110) mg/dL Microbiology - Last 24 Hours (Table) 09/27/24 12:09 Blood Culture - Preliminary Blood Assessment and Plan (1) Allergy to multiple antibiotics Current Visit: Yes Status: Acute Code(s): Z88.1 - ALLERGY STATUS TO OTHER A NTIBIOTIC AGENTS SNOMED Code(s): 788968490 (2) Emphysematous cystitis Current Visit: Yes Status: Acute Code(s): N30.80 - OTHER CYSTITIS WITHOUT HEMATURIA SNOMED Code(s): 21092436 (3) UTI (urinary tract infection) Current Visit: Yes Status: Acute Code(s): N39.0 - URINARY TRACT INFECTION, SITE NOT SPECIFIED SNOMED Code(s): 82296516 (4) Bacteremia due to Escherichia coli Current Visit: Yes Status: Acute Code(s): R78.81 - BACTEREMIA; B96.20 - UNSP ESCHERICHIA COLI THE CAUSE OF DISEASES CLASSD [facility] SNOMED Code(s): 302828526657 (5) Leukocytosis Current Visit: Yes Status: Acute Code(s): D72.829 - ELEVATED WHITE BLOOD CELL COUNT, UNSPECIFIED SNOMED Code(s): 392908217 Plan: 1patient presented to hospital with nausea vomiting not feeling well and did have a urinary symptoms of burning frequency few days ago did have significantly positive UA with abnormal CT concerning for gas in the bladder and this patient has not been catheterized concerning for possible emphysematous cystitis she did have abnormality seen on the CT of the gallbladder but no significant right upper quadrant tenderness 2-patient with multiple antibiotic ALLERGIES that would limit the number of antibiotic safe to use 3-patient with E. coli bacteremia source likely urinary, repeat blood culture has been negative 4patient afebrile currently waiting for possible laparoscopic cholecystectomy on Thursday will continue patient on Rocephin and monitor clinical course closely Dictation was produced using [employer] dictation software. please excuse any grammatical, word or spelling errors. Time with Patient: Less than 30
--- NOTE | 2024-10-01 17:06 | P.PN ---
Subjective Progress Note Date: 10/01/24 CHIEF COMPLAINT: Cholecystitis HISTORY OF PRESENT ILLNESS: The patient is a 64-year-old female reports developing right upper quadrant pain with radiation to the back 3 days ago. Pain is improving. She is tolerating lunch which included beef stroganoff and vanilla pudding. Patient is also being seen by urology due to emphysematous cystitis ROS: No reports of nausea and vomiting. No bowel movements. No fevers or chills. No new chest pain. No productive sputum. Morbid obesity due to excess calories, BMI 43.9 PHYSICAL EXAM: VITAL SIGNS: Reviewed CONSTITUTIONAL: Well developed and in no acute distress. EYES: Conjuctivae without sclera icterus. Extraocular movements grossly intact. HEAD, EARS, NOSE, THROAT: Moist buccal mucosa. Head is atraumatic, normocephalic. Hears conversational speech. No nasal drainage. RESPIRATORY: Non-labored respirations and equal bilateral excursions. CARDIOVASCULAR: Palpable 2+ radial pulses. ABDOMEN: Obese. No peritonitis. MUSCULOSKELETAL: No gross deformity of the lower extremities noted. No clubbing. No cyanosis. SKIN: Good skin turgor. Well perfused. NEUROLOGIC: Cranial nerves II through XII grossly intact. No focal or lateralizing signs. PSYCH: Appropriate affect. Alert and oriented to person, place and time. CLINICAL LABS: Reviewed. WBC elevated over 11,000. Hemoglobin low 8.9, anemia. LFTs normal at time of admission. ASSESSMENT: 1. Acute cholecystitis with gallstones 2. Morbid obesity excess calories, BMI 43.9. PLAN: 1. At this time, patient has tolerated her diet and avoiding low fats. 2. Repeat CBC due to anemia and elevated white count. 3. May benefit from surgical invention while inpatient Objective - Vital Signs Vital signs: Vital Signs Temp 98.2 F 10/01/24 14:00 Pulse 66 10/01/24 14:00 Resp 16 10/01/24 14:00 BP 162/114 10/01/24 14:00 Pulse Ox 98 10/01/24 14:00 FiO2 Intake & Output 09/30/24 10/01/24 10/01/24 18:59 06:59 18:59 Intake Total 60 Balance 60 Weight 108.862 kg Intake: Oral 60 Other: Voiding Method Toilet Toilet Toilet # Voids 1 2 - Labs CBC & Chem 7: 10/01/24 05:20 10/01/24 05:20 Labs: Abnormal Lab Results - Last 24 Hours (Table) 09/30/24 09/30/24 10/01/24 Range/Units 17:09 19:18 05:20 WBC (3.8-10.6) k/uL RBC (3.80-5.40) m/uL Hgb (11.4-16.0) gm/dL Hct (34.0-46.0) % Neutrophils # (1.3-7.7) k/uL Sodium 135 L (137-145) mmol/L BUN 24 H (7-17) mg/dL Creatinine 1.06 H (0.52-1.04) mg/dL Glucose 189 H (74-99) mg/dL POC Glucose (mg/dL) 187 H 229 H (70-110) mg/dL 10/01/24 10/01/24 10/01/24 Range/Units 05:20 05:23 12:30 WBC 11.8 H (3.8-10.6) k/uL RBC 3.29 L (3.80-5.40) m/uL Hgb 8.9 L (11.4-16.0) gm/dL Hct 28.1 L (34.0-46.0) % Neutrophils # 8.8 H (1.3-7.7) k/uL Sodium (137-145) mmol/L BUN (7-17) mg/dL Creatinine (0.52-1.04) mg/dL Glucose (74-99) mg/dL POC Glucose (mg/dL) 197 H 249 H (70-110) mg/dL Microbiology - Last 24 Hours (Table) 09/27/24 12:09 Blood Culture - Preliminary Blood
[2024-10-01 17:20] LABS: Glucose,Whole Blood 201 mg/dL (70-110)
[2024-10-01 20:04] LABS: Glucose,Whole Blood 183 mg/dL (70-110)
[2024-10-02 05:16] LABS: Glucose,Whole Blood 207 mg/dL (70-110)
[2024-10-02] MEDS ORDERED: HYDROmorphone 0.5 MG/0.5 ML SYRINGE IVP PRN (07:47)
[2024-10-02 12:04] LABS: Glucose,Whole Blood 234 mg/dL (70-110)
--- NOTE | 2024-10-02 14:38 | P.PN ---
Subjective Progress Note Date: 10/02/24 CHIEF COMPLAINT: Cholecystitis HISTORY OF PRESENT ILLNESS: The patient is a 64-year-old female reports who complains of right upper quadrant abdominal discomfort. She is sitting up in chair speaking to family friend. ROS: No reports of nausea and vomiting. No bowel movements. No fevers or chills. No new chest pain. No productive sputum. Morbid obesity due to excess calories, BMI 43.9 PHYSICAL EXAM: VITAL SIGNS: Reviewed CONSTITUTIONAL: Well developed and in no acute distress. EYES: Conjuctivae without sclera icterus. Extraocular movements grossly intact. HEAD, EARS, NOSE, THROAT: Moist buccal mucosa. Head is atraumatic, normocephalic. Hears conversational speech. No nasal drainage. RESPIRATORY: Non-labored respirations and equal bilateral excursions. CARDIOVASCULAR: Palpable 2+ radial pulses. ABDOMEN: Obese. No peritonitis. Tender epigastrium/right upper quadrant. MUSCULOSKELETAL: No gross deformity of the lower extremities noted. No clubbing. No cyanosis. SKIN: Good skin turgor. Well perfused. NEUROLOGIC: Cranial nerves II through XII grossly intact. No focal or lateralizing signs. PSYCH: Appropriate affect. Alert and oriented to person, place and time. CLINICAL LABS: Reviewed. Blood sugar between 200s to 250s. ASSESSMENT: 1. Acute cholecystitis with gallstones 2. Morbid obesity excess calories, BMI 43.9. 3. Diabetes type 2 with hyperglycemia.. Diabetes type 2 PLAN: 1. Repeat CBC and CMP for tomorrow morning. 2. N.p.o. after midnight. 3. Patient elevated risk due to hypoglycemia morbid obesity for cholecystectomy Objective - Vital Signs Vital signs: Vital Signs Temp 98.3 F 10/02/24 07:40 Pulse 67 10/02/24 07:40 Resp 16 10/02/24 07:40 BP 164/68 10/02/24 14:22 Pulse Ox 95 10/02/24 07:40 FiO2 Intake & Output 10/01/24 10/02/24 10/02/24 18:59 06:59 18:59 Other: Voiding Method Toilet Toilet Toilet # Voids 1 1 - Labs CBC & Chem 7: 10/01/24 05:20 10/01/24 05:20 Labs: Abnormal Lab Results - Last 24 Hours (Table) 02/09/2410/01/24 10/02/24 Range/Units 17:18 20:03 05:15 POC Glucose (mg/dL) 201 H 183 H 207 H (70-110) mg/dL 10/02/24 Range/Units 12:03 POC Glucose (mg/dL) 234 H (70-110) mg/dL
[2024-10-02] MEDS: LACTULOSE 20 GM/30 ML CUP PO ONE (14:49)
[2024-10-02] MEDS: LACTATED RINGERS 1,000 ML IV SCH (14:50)
--- NOTE | 2024-10-02 16:08 | P.PN ---
Subjective Progress Note Date: 10/02/24 Principal diagnosis: Reason for follow-up is cystitis UTI bacteremia Patient is a 64-year-old female with a past medical history significant diabetes mellitus hypertension asthma thyroid disorder presenting to the hospital for evaluation of nausea and vomiting patient did have a CT abdominal pelvis concerning for cholelithiasis distended gallbladder and some air within the urinary bladder concerning for possible emphysematous cystitis subsequent blood culture positive for E. coli. On today's evaluation that is 10/02/2024, Patient is afebrile patient is currently on room air and denies having any shortness of breath, the patient denies any chest pain or cough, the patient denies any nausea vomiting did not have any abdominal pain and no diarrhea, rather no bowel movement for the last few days asking for laxative. No new lab has been obtained today Objective - Vital Signs Vital signs: Vital Signs Temp 97.9 F 10/02/24 14:49 Pulse 76 10/02/24 14:49 Resp 16 10/02/24 14:49 BP 164/68 10/02/24 14:22 Pulse Ox 97 10/02/24 14:49 FiO2 Intake & Output 10/01/24 10/02/24 10/02/24 18:59 06:59 18:59 Other: Voiding Method Toilet Toilet Toilet # Voids 1 1 - Exam GENERAL DESCRIPTION: Middle-age female up in bed in no distress RESPIRATORY SYSTEM: Unlabored breathing , decreased breath sounds at bases HEART: S1 S2 regular rate and rhythm , ABDOMEN: Soft , no tenderness EXTREMITIES: No edema feet - Labs CBC & Chem 7: 10/01/24 05:20 10/01/24 05:20 Labs: Abnormal Lab Results - Last 24 Hours (Table) 10/01/24 10/01/24 10/02/24 Range/Units 17:18 20:03 05:15 POC Glucose (mg/dL) 201 H 183 H 207 H (70-110) mg/dL 10/02/24 Range/Units 12:03 POC Glucose (mg/dL) 234 H (70-110) mg/dL Assessment and Plan (1) Allergy to multiple antibiotics Current Visit: Yes Status: Acute Code(s): Z88.1 - ALLERGY STATUS TO OTHER ANTIBIOTIC AGENTS SNOMED Code(s): 410450602 (2) Emphysematous cystitis Current Visit: Yes Status: Acute Code(s): N30.80 - OTHER CYSTITIS WITHOUT HEMATURIA SNOMED Code(s): 41202571 (3) UTI (urinary tract infection) Current Visit: Yes Status: Acute Code(s): N39.0 - URINARY TRACT INFECTION, SITE NOT SPECIFIED SNOMED Code(s): 65404571 (4) Bacteremia due to Escherichia coli Current Visit: Yes Status: Acute Code(s): R78.81 - BACTEREMIA; B96.20 - UNSP ESCHERICHIA COLI [facility] SN[facility] Code(s): 011083680585 (5) Leukocytosis Current Visit: Yes Status: Acute Code(s): D72.829 - ELEVATED WHITE BLOOD CELL COUNT, UNSPECIFIED SNOMED Code(s): 854969335 Plan: 1patient presented to hospital with nausea vomiting not feeling well and did have a urinary symptoms of burning frequency few days ago did have significantly positive UA with abnormal CT concerning for gas in the bladder and this patient has not been catheterized concerning for possible emphysematous cystitis she did have abnormality seen on the CT of the gallbladder but no significant right upper quadrant tenderness 2-patient with multiple antibiotic ALLERGIES that would limit the number of antibiotic safe to use 3-patient with E. coli bacteremia source likely urinary, repeat blood culture has been negative 4patient afebrile currently waiting for possible laparoscopic cholecystectomy scheduled for tomorrow patient is being treated with Rocephin we will add Colace and see clinical response Dictation was produced using [employer] dictation software. please excuse any grammatical, word or spelling errors. Time with Patient: Less than 30
[2024-10-02] MEDS: cloNIDine HCL 0.1 MG TAB PO SCH (16:31)
[2024-10-02 17:11] LABS: Glucose,Whole Blood 209 mg/dL (70-110)
--- NOTE | 2024-10-02 19:18 | P.DS ---
Providers Date of admission: 09/25/24 20:09 Expected date of discharge: 10/02/24 Attending physician: Sammy Mojica Consults: 09/25/24 20:11 Consult Physician Urgent Consulting Provider: Eric Horn Consult Reason/Comments: Gallstones, possible bladder fistula Do you want consulting provider notified?: Yes Consult Physician Urgent Consulting Provider: Dereje Andersen Consult Reason/Comments: UTI, possible emphysematous cystitis Do you want consulting provider notified?: Yes 09/25/24 20:14 Consult Physician Urgent Consulting Provider: Amado Perez Consult Reason/Comments: Emphysematous cystitis versus bladder fistula Do you want consulting provider notified?: Yes Primary care physician: Sammi Benitez [place] [facility] Course: Chief Complaint: Nausea vomiting 64-year-old patient who follows with Dr. Sammi Bneitez. 6 days ago patient started with nausea vomiting. Initially she thought it was getting a UTI a day prior and then the symptoms started. Decreased bowel movements but took laxatives. No abdominal pain. Did reply have some fever. Only to take some liquids down. Little bowel movement. This morning had a banana. September 27: Patient's blood cultures come back positive for E. coli. Getting IV ceftriaxone. Repeat blood culture ordered. Improved abdominal pain. On a soft diet. Last low-grade fever yesterday morning.Patient increase activity. Per surgery outpatient surgical intervention. Discussed with the patient the importance of repeat blood cultures to make sure is coming negative. No nausea vomiting. Patient's creatinine has bumped up to 1.6.. Ketorolac, naproxen,. Increase IV fluids to 100 cc an hour. September 28: Feeling better. Slight right upper quadrant discomfort. Tolerating diet. No bowel movement. No fever no chills. Repeat blood cultures pending. Discussed with patient. Getting IV ceftriaxone. White count coming down. Slight improvement in renal function. 127. September 29: Minimal right upper quadrant pain. Tolerating diet. Pending repeat blood cultures. On IV ceftriaxone. Patient been drinking excessive fluid. Balanced oral intake of water discussed. Creatinine coming down to 1.18. Patient ambulating. September 30: Patient had some right-sided abdominal pain. Dr Horn has decided to hold the patient back to Thursday to do surgery. Hyponatremia better w ith fluid restriction. Discussed with patient. Continue IV ceftriaxone. October 01: Right side abdominal discomfort still present. Tolerating diet. Sodium coming up. IV ceftriaxone. Pending surgery on Thursday. October 02: Remains on IV ceftriaxone. Tolerating diet. Some right abdominal discomfort. IV ceftriaxone. Plan for surgery tomorrow. N.p.o. after midnight except medications. For blood pressure check Catapres increased to 0.1 mg 3 times daily Active Medications Acetaminophen (Acetaminophen Tab 325 Mg Tab) 650 mg PO Q6HR PRN PRN Reason: Mild Pain or Fever > 100.5 Last Admin: 10/02/24 16:33 Dose: 650 mg Amlodipine Besylate (Amlodipine 5 Mg Tab) 5 mg PO DAILY [facility] Last Admin: 10/02/24 09:57 Dose: 5 mg Artificial Tears (Artificial Tears-Hypromellose Drops 15 Ml Btl) 1 drops BOTH EYES QID [facility] Last Admin: 10/02/24 17:49 Dose: 1 drops Brimonidine Tartrate (Brimonidine Tartrate 0.2% Drops 5 Ml Btl) 1 drops LEFT EYE BID [facility] Last Admin: 10/02/24 09:59 Dose: 1 drops Clonidine (Clonidine Hcl 0.1 Mg Tab) 0.1 mg PO TID [facility] Last Admin: 10/02/24 16:31 Dose: 0.1 mg Docusate Sodium (Docusate 100 Mg Cap) 100 mg PO BID [facility] Dorzolamide HCl (Dorzolamide Hcl 2% Drops 10 Ml Btl) 1 drops LEFT EYE BID [facility] Last Admin: 10/02/24 09:59 Dose: 1 drops Enoxaparin Sodium (Enoxaparin 40 Mg/0.4 Ml Syringe) 40 mg SQ DAILY [facility] Last Admin: 10/02/24 09:58 Dose: 40 mg Ergocalciferol (Ergocalciferol 1,250 Mcg (50,000 Iu) Capsule) 1,250 mcg PO We@0900 [facility] Last Admin: 09/28/24 08:22 Dose: 1,250 mcg Hydromorphone HCl (Hydromorphone 0.5 Mg/0.5 Ml Syringe) 0.5 mg IVP Q5M PRN PRN Reason: Phase 1 or 2 - Pain Control Stop: 10/03/24 07:46 Ceftriaxone Sodium 2 gm/ (Sodium Chloride) 50 mls @ 100 mls/hr IVPB HS [facility]; Protocol Last Admin: 10/01/24 20:49 Dose: 100 mls/hr Lactated Ringer's (Lactated Ringers) 1,000 mls @ 50 mls/hr IV .Q20H [facility] Last Admin: 10/02/24 06:03 Dose: Not Given Insulin Aspart (Insulin Aspart (Novolog) 100 Unit/Ml Vial) 0 unit SQ ACHS [facility]; Protocol Last Admin: 10/02/24 17:48 Dose: 4 unit Latanoprost (Latanoprost 0.005% Ophth Drops 2.5 Ml Btl) 1 drops LEFT EYE HS [facility] Last Admin: 10/01/24 20:50 Dose: 1 drops Metoclopramide HCl (Metoclopramide 5 Mg/Ml 2 Ml Vial) 10 mg IVP Q6HR PRN PRN Reason: Nausea And Vomiting Last Admin: 09/25/24 21:27 Dose: 10 mg Naloxone HCl (Naloxone 0.4 Mg/Ml 1 Ml Vial) 0.2 mg IV Q2M PRN PRN Reason: Opioid Reversal Ondansetron HCl (Ondansetron 4 Mg/2 Ml Vial) 4 mg IVP Q8HR PRN PRN Reason: Nausea And Vomiting Last Admin: 09/26/24 04:24 Dose: 4 mg Pantoprazole Sodium (Pantoprazole 40 Mg Tablet) 40 mg PO AC-BRKFST [facility] Last Admin: 10/02/24 05:33 Dose: 40 mg Prednisolone Acetate (Prednisolone Acetate 1% Ophth Drops 5 Ml Btl) 1 drops LEFT EYE DAILY [facility] Last Admin: 10/02/24 09:59 Dose: 1 drops Social history: Lives alone. No smoking no alcohol. Physical examination: VITAL SIGNS: 97.9, 76, 16, 150 x 68, 97% room air GENERAL: BMI 43.9, comfortable sitting at edge of the bed EYES: Pupils equal. Conjunctiva luiz l. HEENT: External appearance of nose and ears normal, oral cavity grossly normal. NECK: JVD not raised; masses not palpable. HEART: First and second heart sounds are normal; no edema. LUNGS: Respiratory rate normal; clear to auscultation. ABDOMEN: Soft, minimal right upper quadrant t tenderness, liver spleen not palpable, no masses palpable. PSYCH: Alert and oriented x3; mood and affect luiz l. INVESTIGATIONS, reviewed in the clinical context: October 01: White count 11.8 sodium 135 creatinine 1.06 September 30: White count 11.6 hemoglobin 8.8 potassium 4.7 BUN 30 creatinine 1.19 September 29: White count 11.4 hemoglobin 8.4 platelets 28 potassium 4.2 sodium 127 BUN 34 creatinine 1.18 0.4 hemoglobin 8.4 platelets 298 sodium 127 potassium 4.2 BUN 34 creatinine 1.18 September 28: White count 14.2 hemoglobin 8.9 sodium 127 potassium 4.4 BUN 37 creatinine 1.45 September 27: White count 7.1 hemoglobin 8.7 sodium 129 potassium 4 BUN 37 creatinine 1.6 September 25: White count 6.3 hemoglobin 9.9 platelets 192 sodium 126 potassium 4 BUN 33 creatinine 1.0 UA: Leukoesterase large WBC 44 squamous epithelial cells 2 Influenza type A, type B, RSV, COVID-19: Not detected EKG tracing personally reviewed by me-normal sinus rhythm. EKG tracing personally reviewed by me-gallstones with significantly distended gallbladder lumen without significant gallbladder wall thickening or any adjacent pericystic cholecystic fluid. Assessment plan: -Acute cholecystitis. With choledocholithiasis.: IV ceftriaxone. Dr. Horn now planning for surgery on Thursday.. IV fluids. -Diabetes mellitus type 2 on oral hypoglycemic Metformin-held. Follow Accu-Cheks with sliding scale insulin -Hyponatremia from decreased solute intake. With hypovolemia: Much improved IV fluids. Avoid free fluid. Discussed with patient. -Sepsis: Blood cultures positive for E. coli, likely from infected gallbladder Repeat blood cultures negative -Acute kidney injury likely from sepsis, causing ATN: Improving Creatinine had gone up to 1.6 from 1.0. Down to 1.18 Hold off any renal offensive drugs including NSAIDs. Continue IV fluids Follow renal function -Essential hypertension Increase clonidine 0.1 mg 3 times daily amlodipine -Glaucoma Resume home eyedrops -Full code Discussed with patient. Medication to continue. Past Medical History Past Medical History: Asthma, Diabetes Mellitus, Hypertension, Thyroid Disorder Additional Past Medical History / Comment(s): pressure in eye History of Any Multi-Drug Resistant Organisms: None Reported Past Surgical History: Orthopedic Surgery Additional Past Surgical History / Comment(s): Cataract surgery with shut placed Past Psychological History: No Psychological Hx Reported Smoking Status: Never smoker Past Alcohol Use History: Rare Past Drug Use History: None Reported Plan - Discharge Summary New Discharge Prescriptions: New cefuroxime axetiL [Ceftin] 500 mg PO BID #20 tab No Action Ergocalciferol (Vitamin D2) [Drisdol (50,000 Iu)] 1,250 mcg PO WE Chlorthalidone [Hygroton] 25 mg PO DAILY prednisoLONE ACETATE 1% OPHTH [Pred Forte 1%] 1 drops LEFT EYE DAILY Losartan Potassium [Cozaar] 100 mg PO DAILY Dorzolamide 2% [Trusopt 2%] 1 drops LEFT EYE BID Carboxymethylcellulose Sodium [Thera Tears] 1 drop BOTH EYES QID metFORMIN HCL 1,000 mg PO BID amLODIPine [Norvasc] 5 mg PO DAILY 30 Days #30 tab Latanoprost [Latanoprost 0.005%] 1 drop LEFT EYE HS Brimonidine Tartrate [Alphagan P 0.2% Ophth Soln] 1 drops LEFT EYE BID Discharge Medication List Ergocalciferol (Vitamin D2) [Drisdol (50,000 Iu)] 1,250 mcg PO WE 09/11/22 [History] metFORMIN HCL 1,000 mg PO BID 09/11/22 [History] amLODIPine [Norvasc] 5 mg PO DAILY 30 Days #30 tab 09/15/22 [Rx] Chlorthalidone [Hygroton] 25 mg PO DAILY 08/07/23 [History] Brimonidine Tartrate [Alphagan P 0.2% Ophth Soln] 1 drops LEFT EYE BID 09/26/24 [History] Carboxymethylcellulose Sodium [Thera Tears] 1 drop BOTH EYES QID 09/26/24 [History] Dorzolamide 2% [Trusopt 2%] 1 drops LEFT EYE BID 09/26/24 [History] Latanoprost [Latanoprost 0.005%] 1 drop LEFT EYE HS 09/26/24 [History] Losartan Potassium [Cozaar] 100 mg PO DAILY 09/26/24 [History] prednisoLONE ACETATE 1% OPHTH [Pred Forte 1%] 1 drops LEFT EYE DAILY 09/26/24 [History] cefuroxime axetiL [Ceftin] 500 mg PO BID #20 tab 09/29/24 [Rx] Follow up Appointment(s)/Referral(s): Sammi Benitez DO [Primary Care Provider] - 1-2 days Dereje Andersen MD [STAFF PHYSICIAN] - 1 Week Eric Horn MD [STAFF PHYSICIAN] - 1 Week
[2024-10-02 20:16] LABS: Glucose,Whole Blood 198 mg/dL (70-110)
[2024-10-02] MEDS: DOCUSATE 100 MG CAP PO SCH (20:35)
[2024-10-03 05:45] LABS: Glucose,Whole Blood 203 mg/dL (70-110)
[2024-10-03 06:31] LABS: African American GFR (CKD) 81 (>60 ml/min/1.73 sqM); Anion Gap 10 mmol/L; Blood Urea Nitrogen 14 mg/dL (7-17); Calcium 8.9 mg/dL (8.4-10.2); Carbon Dioxide 26 mmol/L (22-30); Chloride 100 mmol/L (98-107); Glucose 187 mg/dL (74-99); Non-African American GFR(CKD) 70 (>60 ml/min/1.73 sqM); Potassium 4.2 mmol/L (3.5-5.1); Sodium 136 mmol/L (137-145)
[2024-10-03 06:44] LABS: Basophils # (A) 0.1 k/uL (0-0.2); Basophils % (A) 1 %; Eosinophils # (A) 0.2 k/uL (0-0.7); Eosinophils % (A) 2 %; HGB 8.5 gm/dL (11.4-16.0); Hypochromasia Slight; Lymphocytes # (A) 1.4 k/uL (1.0-4.8); Lymphocytes % (A) 14 %; MCH 26.8 pg (25.0-35.0); MCHC 31.6 g/dL (31.0-37.0); MCV 84.8 fL (80.0-100.0); Mean Platelet Volume 7.7; Monocytes # (A) 0.4 k/uL (0-1.0); Monocytes % (A) 4 %; Neutrophils # (A) 8.3 k/uL (1.3-7.7); Neutrophils % (A) 79 %; Platelet Count 436 k/uL (150-450); RBC 3.18 m/uL (3.80-5.40); RDW 14.2 % (11.5-15.5); WBC 10.5 k/uL (3.8-10.6)
[2024-10-03 12:06] LABS: Glucose,Whole Blood 180 mg/dL (70-110)
--- NOTE | 2024-10-03 14:31 | P.PN ---
Subjective Progress Note Date: 10/03/24 SURGICAL PROGRESS NOTE CHIEF COMPLAINT: Nausea and vomiting HISTORY OF PRESENT ILLNESS: Surgical service is following in regards to cholecystitis. Patient is scheduled for surgery today. Continues to complain of right upper quadrant abdominal pain and back pain. She denies any chest pain or shortness of breath. Afebrile. WBC 10.5 Hgb 8.5 NA 136 PHYSICAL EXAM: VITAL SIGNS: Reviewed. GENERAL: Well-developed in no acute distress. ABDOMEN: Soft. Nondistended. Tenderness to palpation right upper quadrant. No rebound or guarding. NEUROLOGIC: Alert and oriented. Cranial nerves II through XII grossly intact. ASSESSMENT: 1. Cholecystitis with CT scan evidence of gallstones and significantly distended gallbladder 2. UTI 3. Blood culture positive for E. coli 4. Hyponatremia improving PLAN: -Patient scheduled for laparoscopic cholecystectomy today with Dr. Horn [facility] note has been reviewed by physician. Signing provider agrees with the documented findings, assessment, and plan of care. Objective - Vital Signs Vital signs: Vital Signs Temp 98.0 F 10/03/24 14:00 Pulse 77 10/03/24 14:00 Resp 18 10/03/24 14:00 BP 185/78 10/03/24 14:00 Pulse Ox 98 10/03/24 14:00 FiO2 Intake & Output 10/02/24 10/03/24 10/03/24 18:59 06:59 18:59 Other: Voiding Method Toilet Toilet # Voids 4 # Bowel Movements 2 - Labs CBC & Chem 7: 10/03/24 04:44 10/03/24 04:44 Labs: Abnormal Lab Results - Last 24 Hours (Table) 10/02/24 10/02/24 10/03/24 Range/Units 17:09 20:14 04:44 RBC 3.18 L (3.80-5.40) m/uL Hgb 8.5 L (11.4-16.0) gm/dL Hct 27.0 L (34.0-46.0) % Neutrophils # 8.3 H (1.3-7.7) k/uL Sodium (137-145) mmol/L Glucose (74-99) mg/dL POC Glucose (mg/dL) 209 H 198 H (70-110) mg/dL 10/03/24 10/03/24 10/03/24 Range/Units 04:44 05:44 12:04 RBC (3.80-5.40) m/uL Hgb (11.4-16.0) gm/dL Hct (34.0-46.0) % Neutrophils # (1.3-7.7) k/uL Sodium 136 L (137-145) mmol/L Glucose 187 H (74-99) mg/dL POC Glucose (mg/dL) 203 H 180 H (70-110) mg/dL Microbiology - Last 24 Hours (Table) 09/27/24 12:09 Blood Culture - Final Blood
[2024-10-03] MEDS: FAMOTIDINE 20 MG/2 ML VIAL IV STA (16:40)
[2024-10-03 16:41] LABS: Glucose,Whole Blood 165 mg/dL (70-110)
[2024-10-03] MEDS: ONDANSETRON 4 MG/2 ML VIAL IVP ONE (16:41)
[2024-10-03] MEDS: DEXAMETHASONE SOD PHOSPHATE 4 MG/ML 1 ML VIAL IV ONE (16:41)
[2024-10-03] MEDS ORDERED: KETOROLAC 15 MG/ML 1 ML VIAL ONE (17:00)
[2024-10-03] MEDS ORDERED: GLYCOPYRROLATE 0.2 MG/ML 2 ML VIAL ONE (17:00)
[2024-10-03] MEDS ORDERED: MIDAZOLAM 2 MG/2 ML VIAL ONE (17:00)
[2024-10-03] MEDS ORDERED: NEOSTIGMINE 1 MG/ML 10 ML VIAL ONE (17:00)
[2024-10-03] MEDS ORDERED: HEPARIN SODIUM,PORCINE 5,000 UNIT/ML 1 ML VIAL ONE (17:00)
[2024-10-03] MEDS ORDERED: SUGAMMADEX SODIUM 100 MG/ML SYR IV ONE (17:00)
[2024-10-03] MEDS ORDERED: SUCCINYLCHOLINE CHLORIDE 200 MG/10 ML VIAL IV ONE (17:00)
[2024-10-03] MEDS ORDERED: ROCURONIUM 10 MG/ML (5 ML VIAL) IV ONE (17:00)
[2024-10-03] MEDS ORDERED: fentaNYL (PF) 50 MCG/ML 2 ML AMP ONE (17:00)
[2024-10-03] MEDS ORDERED: LIDOCAINE 1% INJ 10MG/ML (20 ML MDV) ONE (17:00)
[2024-10-03] MEDS: SODIUM CHLORIDE 0.9% 50 ML with ceFAZolin 2,000 MG IV ONE (17:02)
[2024-10-03] MEDS: BUPIVACAINE (PF) 0.25% 30 ML VIAL SQ ONE (17:22)
[2024-10-03] MEDS ORDERED: ONDANSETRON 4 MG/2 ML VIAL IVP PRN (17:58)
[2024-10-03] MEDS ORDERED: HYDROmorphone 1 MG/ML 1 ML SYRINGE IVP PRN (17:58)
[2024-10-03] MEDS ORDERED: HYDROcodone/APAP 7.5-325MG 1 EACH TAB PO PRN (17:58)
--- NOTE | 2024-10-03 17:58 | P.OP ---
Date of Procedure: 10/03/24 Preoperative Diagnosis: Cholecystitis Postoperative Diagnosis: Cholecystitis Procedure(s) Performed: Laparoscopic cholecystectomy Anesthesia: KAEL Surgeon: Eric Horn Estimated Blood Loss (ml): 5 Pathology: other (Gallbladder) Condition: stable Disposition: PACU Description of Procedure: The patient was placed on the operating table. The patient received a general endotracheal tube anesthesia. The patients abdomen was prepped and draped in the usual sterile fashion. Through an infraumbilical stab incision, the fascia of the anterior abdominal wall was grasped with a pair of Kochers and then the Veress needle was placed in the peritoneal cavity. Position of the Veress needle was confirmed with positive drop test. The abdomen was then insufflated. After adequate insufflation, the 10 mm trocar was placed in the peritoneal cavity. Following this the laparoscope was placed in the peritoneal cavity. The patient was placed in the head-up, right side up position and then a 5 mm trocar was placed in the right lateral and right subcostal position under direct visualization. A 8 mm trocar was placed in the epigastric position. The gallbladder was grasped in the fundus and infundibulum. Traction on the gallbladder was placed in the lateral and the cephalad positions. The triangle of Calot was visualized.. The cystic duct was bluntly dissected until the union of the cystic duct and common bile duct was seen. A critical view of safety was achieved. The cystic duct was then divided and sealed with the Harmonic scissors. A PDS Endoloop was then placed throughout the cystic duct stump. The cystic artery divided and sealed with the Harmonic scissors. The gallbladder was then removed from the liver bed using Harmonic scissors. The gallbladder was then extracted through the epigastric port site. Operative field was checked for any bleeding spots and Harmonic scissors was used to coagulate the liver bed. The abdomen was irrigated. The trocars were removed. The skin was closed using interrupted 3-0 Vicryl suture. Dermabond dressing were applied. The patient tolerated the procedure well.
[2024-10-03] MEDS: hydrALAZINE HCL 20 MG/ML 1 ML VIAL IVP STA (18:20)
[2024-10-03] MEDS: IV FLUID CONTINUATION 1,000 ML IV ONE (19:30)
--- NOTE | 2024-10-03 19:56 | P.PN ---
Progress Note - Text Progress Note Date: 10/02/24 Chief Complaint: Nausea vomiting 64-year-old patient who follows with Dr. Sammi Benitez. 6 days ago patient started with nausea vomiting. Initially she thought it was getting a UTI a day prior and then the symptoms started. Decreased bowel movements but took laxatives. No abdominal pain. Did reply have some fever. Only to take some liquids down. Little bowel movement. This morning had a banana. September 27: Patient's blood cultures come back positive for E. coli. Getting IV ceftriaxone. Repeat blood culture ordered. Improved abdominal pain. On a soft diet. Last low-grade fever yesterday morning.Patient increase activity. Per surgery outpatient surgical intervention. Discussed with the patient the importance of repeat blood cultures to make sure is coming negative. No nausea vomiting. Patient's creatinine has bumped up to 1.6.. Ketorolac, naproxen,. Increase IV fluids to 100 cc an hour. September 28: Feeling better. Slight right upper quadrant discomfort. Tolerating diet. No bowel movement. No fever no chills. Repeat blood cultures pending. Discussed with patient. Getting IV ceftriaxone. White count coming down. Slight improvement in renal function. 127. September 29: Minimal right upper quadrant pain. Tolerating diet. Pending repeat blood cultures. On IV ceftriaxone. Patient been drinking excessive fluid. Balanced oral intake of water discussed. Creatinine coming down to 1.18. Patient ambulating. September 30: Patient had some right-sided abdominal pain. Dr Horn has decided to hold the patient back to Thursday to do surgery. Hyponatremia better with fluid restriction. Discussed with patient. Continue IV ceftriaxone. October 01: Right side abdominal discomfort still present. Tolerating diet. Sodium coming up. IV ceftriaxone. Pending surgery on Thursday. October 02: Remains on IV ceftriaxone. Tolerating diet. Some right abdominal discomfort. IV ceftriaxone. Plan for surgery tomorrow. N.p.o. after midnight except medications. For blood pressure check Catapres increased to 0.1 mg 3 samara es daily Active Medications Acetaminophen (Acetaminophen Tab 325 Mg Tab) 650 mg PO Q6HR PRN PRN Reason: Mild Pain or Fever > 100.5 Last Admin: 10/02/24 16:33 Dose: 650 mg Amlodipine Besylate (Amlodipine 5 Mg Tab) 5 mg PO DAILY [facility] Last Admin: 10/02/24 09:57 Dose: 5 mg Artificial Tears (Artificial Tears-Hypromellose Drops 15 Ml Btl) 1 drops BOTH E YES QID [facility] Last Admin: 10/02/24 17:49 Dose: 1 drops Brimonidine Tartrate (Brimonidine Tartrate 0.2% Drops 5 Ml Btl) 1 drops LEFT EYE BID [facility] Last Admin: 10/02/24 09:59 Dose: 1 drops Clonidine (Clonidine Hcl 0.1 Mg Tab) 0.1 mg PO TID [facility] Last Admin: 10/02/24 16:31 Dose: 0.1 mg Docusate Sodium (Docusate 100 Mg Cap) 100 mg PO BID [facility] Dorzolamide HCl (Dorzolamide Hcl 2% Drops 10 Ml Btl) 1 drops LEFT EYE BID [facility] Last Admin: 10/02/24 09:59 Dose: 1 drops Enoxaparin Sodium (Enoxaparin 40 Mg/0.4 Ml Syringe) 40 mg SQ DAILY [facility] Last Admin: 10/02/24 09:58 Dose: 40 mg Ergocalciferol (Ergocalciferol 1,250 Mcg (50,000 Iu) Capsule) 1,250 mcg PO We@0900 [facility] Last Admin: 09/28/24 08:22 Dose: 1,250 mcg Hydromorphone HCl (Hydromorphone 0.5 Mg/0.5 Ml Syringe) 0.5 mg IVP Q5M PRN PRN Reason: Phase 1 or 2 - Pain Control Stop: 10/03/24 07:46 Ceftriaxone Sodium 2 gm/ (Sodium Chloride) 50 mls @ 100 mls/hr IVPB [facility]; Protocol Last Admin: 10/01/24 20:49 Dose: 100 mls/hr Lactated Ringer's (Lactated Ringers) 1,000 mls @ 50 mls/hr IV .Q20H [facility] Last Admin: 10/02/24 06:03 Dose: Not Given Insulin Aspart (Insulin Aspart (Novolog) 100 Unit/Ml Vial) 0 unit SQ ACHS [facility]; Protocol Last Admin: 10/02/24 17:48 Dose: 4 unit Latanoprost (Latanoprost 0.005% Ophth Drops 2.5 Ml Btl) 1 drops LEFT EYE [facility] Last Admin: 10/01/24 20:50 Dose: 1 drops Metoclopramide HCl (Metoclopramide 5 Mg/Ml 2 Ml Vial) 10 mg IVP Q6HR PRN PRN Reason: Nausea And Vomiting Last Admin: 09/25/24 21:27 Dose: 10 mg Naloxone HCl (Naloxone 0.4 Mg/Ml 1 Ml Vial) 0.2 mg IV Q2M PRN PRN Reason: Opioid Reversal Ondansetron HCl (Ondansetron 4 Mg/2 Ml Vial) 4 mg IVP Q8HR PRN PRN Reason: Nausea And Vomiting Last Admin: 09/26/24 04:24 Dose: 4 mg Pantoprazole Sodium (Pantoprazole 40 Mg Tablet) 40 mg PO AC-BRKFST [facility] Last Admin: 10/02/24 05:33 Dose: 40 mg Prednisolone Acetate (Prednisolone Acetate 1% Ophth Drops 5 Ml Btl) 1 drops LEFT EYE DAILY [facility] Last Admin: 10/02/24 09:59 Dose: 1 drops Social history: Lives alone. No smoking no alcohol. Physical examination: VITAL SIGNS: 97.9, 76, 16, 150 x 68, 97% room air GENERAL: BMI 43.9, comfortable sitting at edge of the bed EYES: Pupils equal. Conjunctiva luiz l. HEENT: External appearance of nose and ears normal, oral cavity grossly normal. NECK: JVD not raised; masses not palpable. HEART: First and second heart sounds are normal; no edema. LUNGS: Respiratory rate normal; clear to auscultation. ABDOMEN: Soft, minimal right upper quadrant t tenderness, liver spleen not palpable, no masses palpable. PSYCH: Alert and oriented x3; mood and affect luiz l. INVESTIGATIONS, reviewed in the clinical context: October 01: White count 11.8 sodium 135 creatinine 1.06 September 30: White count 11.6 hemoglobin 8.8 potassium 4.7 BUN 30 creatinine 1.19 September 29: White count 11.4 hemoglobin 8.4 platelets 28 potassium 4.2 sodium 127 BUN 34 creatinine 1.18 0.4 hemoglobin 8.4 platelets 298 sodium 127 potassium 4.2 BUN 34 creatinine 1.18 September 28: White count 14.2 hemoglobin 8.9 sodium 127 potassium 4.4 BUN 37 creatinine 1.45 September 27: White count 7.1 hemoglobin 8.7 sodium 129 potassium 4 BUN 37 creatinine 1.6 September 25: White count 6.3 hemoglobin 9.9 platelets 192 sodium 126 potassium 4 BUN 33 creatinine 1.0 UA: Leukoesterase large WBC 44 squamous epithelial cells 2 Influenza type A, type B, RSV, COVID-19: Not detected EKG tracing personally reviewed by me-normal sinus rhythm. EKG tracing personally reviewed by me-gallstones with significantly distended gallbladder lumen without significant gallbladder wall thickening or any adjacent pericystic cholecystic fluid. Assessment plan: -Acute cholecystitis. With choledocholithiasis.: IV ceftriaxone. Dr. Horn now planning for surgery on Thursday.. IV fluids. -Diabetes mellitus type 2 on oral hypoglycemic Metformin-held. Follow Accu-Cheks with sliding scale insulin -Hyponatremia from decreased solute intake. With hypovolemia: Much improved IV fluids. Avoid free fluid. Discussed with patient. -Sepsis: Blood cultures positive for E. coli, likely from infected gallbladder Repeat blood cultures negative -Acute kidney injury likely from sepsis, causing ATN: Improving Creatinine had gone up to 1.6 from 1.0. Down to 1.18 Hold off any renal offensive drugs including NSAIDs. Continue IV fluids Follow renal function -Essential hypertension Increase clonidine 0.1 mg 3 times daily amlodipine -Glaucoma Resume home eyedrops -Full code Discussed with patient. Medication to continue. Past Medical History Past Medical History: Asthma, Diabetes Mellitus, Hypertension, Thyroid Disorder Additional Past Medical History / Comment(s): pressure in eye History of Any Multi-Drug Resistant Organisms: None Reported Past Surgical History: Orthopedic Surgery Additional Past Surgical History / Comment(s): Cataract surgery with shut placed Past Psychological History: No Psychological Hx Reported Smoking Status: Never smoker Past Alcohol Use History: Rare Past Drug Use History: None Reported
--- NOTE | 2024-10-03 19:58 | P.PN ---
Progress Note - Text Progress Note Date: 10/03/24 Chief Complaint: Nausea vomiting 64-year-old patient who follows with Dr. Sammi Benitez. 6 days ago patient started with nausea vomiting. Initially she thought it was getting a UTI a day prior and then the symptoms started. Decreased bowel movements but took laxatives. No abdominal pain. Did reply have some fever. Only to take some liquids down. Little bowel movement. This morning had a banana. September 27: Patient's blood cultures come back positive for E. coli. Getting IV ceftriaxone. Repeat blood culture ordered. Improved abdominal pain. On a soft diet. Last low-grade fever yesterday morning.Patient increase activity. Per surgery outpatient surgical intervention. Discussed with the patient the importance of repeat blood cultures to make sure is coming negative. No nausea vomiting. Patient's creatinine has bumped up to 1.6.. Ketorolac, naproxen,. Increase IV fluids to 100 cc an hour. September 28: Feeling better. Slight right upper quadrant discomfort. Tolerating diet. No bowel movement. No fever no chills. Repeat blood cultures pending. Discussed with patient. Getting IV ceftriaxone. White count coming down. Slight improvement in renal function. 127. September 29: Minimal right upper quadrant pain. Tolerating diet. Pending repeat blood cultures. On IV ceftriaxone. Patient been drinking excessive fluid. Balanced oral intake of water discussed. Creatinine coming down to 1.18. Patient ambulating. September 30: Patient had some right-sided abdominal pain. Dr Horn has decided to hold the patient back to Thursday to do surgery. Hyponatremia better with fluid restriction. Discussed with patient. Continue IV ceftriaxone. October 01: Right side abdominal discomfort still present. Tolerating diet. Sodium coming up. IV ceftriaxone. Pending surgery on Thursday. October 02: Remains on IV ceftriaxone. Tolerating diet. Some right abdominal discomfort. IV ceftriaxone. Plan for surgery tomorrow. N.p.o. after midnight except medications. For blood pressure check Catapres increased to 0.1 mg 3 samara es daily October 03: Saw the patient this morning. Sitting at the edge of the bed. Family visiting. Was then pending to go down for surgery. No nausea vomiting. NPO. Medications reviewed Social history: Lives alone. No smoking no alcohol. Physical examination: VITAL SIGNS: 98, 77, 18, 98% room air GENERAL: BMI 43.9, comfortable sitting at edge of the bed EYES: Pupils equal. Conjunctiva luiz l. HEENT: External appearance of nose and ears normal, oral cavity grossly normal. NECK: JVD not raised; masses not palpable. HEART: First and second heart sounds are normal; no edema. LUNGS: Respiratory rate normal; clear to auscultation. ABDOMEN: Soft, minimal right upper quadrant t tenderness, liver spleen not palpable, no masses palpable. PSYCH: Alert and oriented x3; mood and affect luiz l. INVESTIGATIONS, reviewed in the clinical context: October 03: White count 10.5 hemoglobin 8.5 potassium 4.2 creatinine 0.88 October 01: White count 11.8 sodium 135 creatinine 1.06 September 30: White count 11.6 hemoglobin 8.8 potassium 4.7 BUN 30 creatinine 1.19 September 29: White count 11.4 hemoglobin 8.4 platelets 28 potassium 4.2 sodium 127 BUN 34 creatinine 1.18 0.4 hemoglobin 8.4 platelets 298 sodium 127 potassium 4.2 BUN 34 creatinine 1.18 September 28: White count 14.2 hemoglobin 8.9 sodium 127 potassium 4.4 BUN 37 creatinine 1.45 September 27: White count 7.1 hemoglobin 8.7 sodium 129 potassium 4 BUN 37 creatinine 1.6 September 25: White count 6.3 hemoglobin 9.9 platelets 192 sodium 126 potassium 4 BUN 33 creatinine 1.0 UA: Leukoesterase large WBC 44 squamous epithelial cells 2 Influenza type A, type B, RSV, COVID-19: Not detected EKG tracing personally reviewed by me-normal sinus rhythm. EKG tracing personally reviewed by me-gallstones with significantly distended gallbladder lumen without significant gallbladder wall thickening or any adjacent pericystic cholecystic fluid. Assessment plan: -Acute cholecystitis. With choledocholithiasis.: IV ceftriaxone. Dr. Horn-scheduled for surgery later today. IV fluids. -Diabetes mellitus type 2 on oral hypoglycemic Metformin-held. Follow Accu-Cheks with sliding scale insulin -Hyponatremia from decreased solute intake. With hypovolemia: Much improved IV fluids. Avoid free fluid. Discussed with patient. -Sepsis: Blood cultures positive for E. coli, likely from infected gallbladder Repeat blood cultures negative -Acute kidney injury likely from sepsis, causing ATN: Improving Creatinine had gone up to 1.6 from 1.0. Down to 1.18 Hold off any renal offensive drugs including NSAIDs. Continue IV fluids Follow renal function -Essential hypertension Increase clonidine 0.1 mg 3 times daily amlodipine -Glaucoma Resume home eyedrops -Full code NPO. Pending surgery later today. Past Medical History Past Medical History: Asthma, Diabetes Mellitus, Hypertension, Thyroid Disorder Additional Past Medical History / Comment(s): pressure in eye History of Any Multi-Drug Resistant Organisms: None Reported Past Surgical History: Orthopedic Surgery Additional Past Surgical History / Comment(s): Cataract surgery with shut placed Past Psychological History: No Psychological Hx Reported Smoking Status: Never smoker Past Alcohol Use History: Rare Past Drug Use History: None Reported
[2024-10-03 21:23] LABS: Glucose,Whole Blood 213 mg/dL (70-110)
[2024-10-04 05:51] LABS: Glucose,Whole Blood 193 mg/dL (70-110)
[2024-10-04 07:32] VITALS: TEMP 97.9
[2024-10-04] MEDS: ENOXAPARIN 40 MG/0.4 ML SYRINGE SQ SCH (08:18)
--- NOTE | 2024-10-04 08:23 | P.PN ---
Subjective Progress Note Date: 10/03/24 Principal diagnosis: Reason for follow-up is cystitis UTI bacteremia Patient is a 64-year-old female with a past medical history significant diabetes mellitus hypertension asthma thyroid disorder presenting to the hospital for evaluation of nausea and vomiting patient did have a CT abdominal pelvis concerning for cholelithiasis distended gallbladder and some air within the urinary bladder concerning for possible emphysematous cystitis subsequent blood culture positive for E. coli. On today's evaluation that is 10/03/2024, patient has been afebrile, patient is breathing comfortably and is currently on room air, patient denies having any significant cough no chest pain, patient denies nausea vomiting or diarrhea and no abdominal pain. Patient white count is 10.5 creatinine 0.88 Objective - Vital Signs Vital signs: Vital Signs Temp 97.9 F 10/03/24 07:31 Pulse 76 10/03/24 07:31 Resp 17 10/03/24 07:31 BP 176/73 10/03/24 07:31 Pulse Ox 96 10/03/24 07:31 FiO2 - Exam GENERAL DESCRIPTION: Middle-age female up in bed in no distress RESPIRATORY SYSTEM: Unlabored breathing , decreased breath sounds at bases HEART: S1 S2 regular rate and rhythm , ABDOMEN: Soft , no tenderness EXTREMITIES: No edema feet - Labs CBC & Chem 7: 10/03/24 04:44 10/03/24 04:44 Labs: Abnormal Lab Results - Last 24 Hours (Table) 10/03/24 10/03/24 10/03/24 Range/Units 12:04 16:39 21:21 POC Glucose (mg/dL) 180 H 165 H 213 H (70-110) mg/dL 10/04/24 Range/Units 05:50 POC Glucose (mg/dL) 193 H (70-110) mg/dL Assessment and Plan (1) Allergy to multiple antibiotics Current Visit: Yes Status: Acute Code(s): Z88.1 - ALLERGY STATUS TO OTHER ANTIBIOTIC AGENTS SNOMED Code(s): 455883149 (2) Emphysematous cystitis Current Visit: Yes Status: Acute Code(s): N30.80 - OTHER CYSTITIS WITHOUT HEMATURIA SNOMED Code(s): 84393780 (3) UTI (urinary tract infection) Current Visit: Yes Status: Acute Code(s): N39.0 - URINARY TRACT INFECTION, SITE NOT SPECIFIED SNOMED Code(s): 76624905 (4) Bacteremia due to Escherichia coli Current Visit: Yes Status: Acute Code(s): R78.81 - BACTEREMIA; B96.20 - UNSP ESCHERICHIA COLI THE CAUSE OF DISEASES CLASSD ELSR SNOMED Code(s): 510844838888 (5) Leukocytosis Current Visit: Yes Status: Acute Code(s): D72.829 - ELEVATED WHITE BLOOD CELL COUNT, UNSPECIFIED SNOMED Code(s): 369853419 Plan: 1patient presented to hospital with nausea vomiting not feeling well and did have a urinary symptoms of burning frequency few days ago did have significantly positive UA with abnormal CT concerning for gas in the bladder and this patient has not been catheterized concerning for possible emphysematous cystitis she did have abnormality seen on the CT of the gallbladder but no significant right upper quadrant tenderness 2-patient with multiple antibiotic ALLERGIES that would limit the number of antibiotic safe to use 3-patient with E. coli bacteremia source likely urinary, repeat blood culture has been negative 4patient afebrile currently waiting for laparoscopic cholecystectomy scheduled for this afternoon patient will continue with IV Rocephin while inpatient finishing therapy with oral Ceftin Dictation was produced using [employer] dictation software. please excuse any grammatical, word or spelling errors. Time with Patient: Less than 30
[2024-10-04 12:04] LABS: Glucose,Whole Blood 187 mg/dL (70-110)
--- NOTE | 2024-10-04 12:51 | P.PN ---
Subjective Progress Note Date: 10/04/24 SURGICAL PROGRESS NOTE CHIEF COMPLAINT: Nausea and vomiting HISTORY OF PRESENT ILLNESS: Patient is postop day #1 status post laparoscopic cholecystectomy. Patient tolerated surgery well. Her pain is controlled. She is tolerating diet. She is up and ambulating. She is afebrile. PHYSICAL EXAM: VITAL SIGNS: Reviewed. GENERAL: Well-developed in no acute distress. ABDOMEN: Soft. Nondistended. Incision sites clean dry and intact NEUROLOGIC: Alert and oriented. Cranial nerves II through XII grossly intact. ASSESSMENT: 1. Cholecystitis status post laparoscopic cholecystectomy 2. UTI 3. Blood culture positive for E. coli PLAN: -Patient is stable for discharge from surgical standpoint -Discharge antibiotics per infectious disease Physician [employer]umbling [employer] Supervisor note has been reviewed by physician. Signing provider agrees with the documented findings, assessment, and plan of care. Objective - Vital Signs Vital signs: Vital Signs Temp 97.9 F 10/04/24 07:31 Pulse 76 10/04/24 07:31 Resp 17 10/04/24 07:31 BP 176/73 10/04/24 07:31 Pulse Ox 96 10/04/24 07:31 FiO2 Intake & Output 10/03/24 10/04/24 10/04/24 18:59 06:59 18:59 Intake Total 1000 Output Total 5 Balance 995 Intake: IV 1000 Output: Estimated Blood Loss 5 Other: Voiding Method Toilet # Voids 5 0 - Labs CBC & Chem 7: 10/03/24 04:44 10/03/24 04:44 Labs: Abnormal Lab Results - Last 24 Hours (Table) 10/03/24 10/03/24 10/04/24 Range/Units 16:39 21:21 05:50 POC Glucose (mg/dL) 165 H 213 H 193 H (70-110) mg/dL 10/04/24 Range/Units 12:03 POC Glucose (mg/dL) 187 H (70-110) mg/dL
[2024-10-04 14:11] VITALS: PULSE 70; RESP 19
[2024-10-04 14:29] VITALS: BP 189/83
[2024-10-04] MEDS: LOSARTAN 50 MG TAB PO STA (14:35)
--- NOTE | 2024-10-04 14:55 | P.PN ---
Subjective Progress Note Date: 10/04/24 Principal diagnosis: Reason for follow-up is cystitis UTI bacteremia Patient is a 64-year-old female with a past medical history significant diabetes mellitus hypertension asthma thyroid disorder presenting to the hospital for evaluation of nausea and vomiting patient did have a CT abdominal pelvis concerning for cholelithiasis distended gallbladder and some air within the urinary bladder concerning for possible emphysematous cystitis subsequent blood culture positive for E. coli. On today's evaluation that is 10/04/2024, Patient is afebrile this morning patient denies having any chest pain shortness of breath or cough, the patient is currently on room air, patient denies any abdominal pain no diarrhea no nausea no vomiting, mention feeling better. No new lab has been repeated today Objective - Vital Signs Vital signs: Vital Signs Temp 97.9 F 10/04/24 07:31 Pulse 76 10/04/24 07:31 Resp 17 10/04/24 07:31 BP 176/73 10/04/24 07:31 Pulse Ox 96 10/04/24 07:31 FiO2 Intake & Output 10/03/24 10/04/24 10/04/24 18:59 06:59 18:59 Intake Total 1000 Output Total 5 Balance 995 Intake: IV 1000 Output: Estimated Blood Loss 5 Other: Voiding Method Toilet # Voids 5 0 - Exam GENERAL DESCRIPTION: Middle-age female up in bed in no distress RESPIRATORY SYSTEM: Unlabored breathing , decreased breath sounds at bases HEART: S1 S2 regular rate and rhythm , ABDOMEN: Soft , no tenderness EXTREMITIES: No edema feet - Labs CBC & Chem 7: 10/03/24 04:44 10/03/24 04:44 Labs: Abnormal Lab Results - Last 24 Hours (Table) 10/03/24 10/03/24 10/03/24 Range/Units 12:04 16:39 21:21 POC Glucose (mg/dL) 180 H 165 H 213 H (70-110) mg/dL 10/04/24 Range/Units 05:50 POC Glucose (mg/dL) 193 H (70-110) mg/dL Assessment and Plan (1) Allergy to multiple antibiotics Current Visit: Yes Status: Acute Code(s): Z88.1 - ALLERGY STATUS TO OTHER ANTIBIOTIC AGENTS SNOMED Code(s): 129882872 (2) Emphysematous cystitis Current Visit: Yes Status: Acute Code(s): N30.80 - OTHER CYSTITIS WITHOUT HEMATURIA SNOMED Code(s): 19458440 (3) UTI (urinary tract infection) Current Visit: Yes Status: Acute Code(s): N39.0 - URINARY TRACT INFECTION, SITE NOT SPECIFIED SNOMED Code(s): 66746206 (4) Bacteremia due to Escherichia coli Current Visit: Yes Status: Acute Code(s): R78.81 - BACTEREMIA; B96.20 - UNSP ESCHERICHIA COLI THE CAUSE OF DISEASES CLASSD ELSR SNOMED Code(s): 329582585730 (5) Leukocytosis Current Visit: Yes Status: Acute Code(s): D72.829 - ELEVATED WHITE BLOOD CELL COUNT, UNSPECIFIED SNOMED Code(s): 543675485 Plan: 1patient presented to hospital with nausea vomiting not feeling well and did have a urinary symptoms of burning frequency few days ago did have significantly positive UA with abnormal CT concerning for gas in the bladder and this patient has not been catheterized concerning for possible emphysematous cystitis she did have abnormality seen on the CT of the gallbladder but no significant right upper quadrant tenderness 2-patient with multiple antibiotic ALLERGIES that would limit the number of antibiotic safe to use 3-patient with E. coli bacteremia source likely urinary, repeat blood culture has been negative 4patient is status post laparoscopic cholecystectomy completed on 10/03/2024 continue IV Rocephin while inpatient finishing therapy with oral Ceftin questions answered Dictation was produced using [employer] dictation software. please excuse any grammatical, word or spelling errors.
[2024-10-04] MEDS ORDERED: CHLORTHALIDONE 25 MG TAB PO SCH (17:00)
--- NOTE | 2024-10-04 17:01 | P.DS ---
Providers Date of admission: 09/25/24 20:09 Expected date of discharge: 10/04/24 Attending physician: Sammy Mojica Consults: 09/25/24 20:11 Consult Physician Urgent Consulting Provider: Eric Horn Consult Reason/Comments: Gallstones, possible bladder fistula Do you want consulting provider notified?: Yes Consult Physician Urgent Consulting Provider: Dereje Andersen Consult Reason/Comments: UTI, possible emphysematous cystitis Do you want consulting provider notified?: Yes 09/25/24 20:14 Consult Physician Urgent Consulting Provider: Amado Perez Consult Reason/Comments: Emphysematous cystitis versus bladder fistula Do you want consulting provider notified?: Yes Primary care physician: Sammi Benitez [facility] Course: Chief Complaint: Nausea vomiting 64-year-old patient who follows with Dr. Sammi Benitez. 6 days ago patient started with nausea vomiting. Initially she thought it was getting a UTI a day prior and then the symptoms started. Decreased bowel movements but took laxatives. No abdominal pain. Did reply have some fever. Only to take some liquids down. Little bowel movement. This morning had a banana. September 27: Patient's blood cultures come back positive for E. coli. Getting IV ceftriaxone. Repeat blood culture ordered. Improved abdominal pain. On a soft diet. Last low-grade fever yesterday morning.Patient increase activity. Per surgery outpatient surgical intervention. Discussed with the patient the importance of repeat blood cultures to make sure is coming negative. No nausea vomiting. Patient's creatinine has bumped up to 1.6.. Ketorolac, naproxen,. Increase IV fluids to 100 cc an hour. September 28: Feeling better. Slight right upper quadrant discomfort. Tolerating diet. No bowel movement. No fever no chills. Repeat blood cultures pending. Discussed with patient. Getting IV ceftriaxone. White count coming down. Slight improvement in renal function. 127. September 29: Minimal right upper quadrant pain. Tolerating diet. Pending repeat blood cultures. On IV ceftriaxone. Patient been drinking excessive fluid. Balanced oral intake of water discussed. Creatinine coming down to 1.18. Patient ambulating. September 30: Patient had some right-sided abdominal pain. Dr Horn has decided to hold the patient back to Thursday to do surgery. Hyponatremia better w ith fluid restriction. Discussed with patient. Continue IV ceftriaxone. October 01: Right side abdominal discomfort still present. Tolerating diet. Sodium coming up. IV ceftriaxone. Pending surgery on Thursday. October 02: Remains on IV ceftriaxone. Tolerating diet. Some right abdominal discomfort. IV ceftriaxone. Plan for surgery tomorrow. N.p.o. after midnight except medications. For blood pressure check Catapres increased to 0.1 mg 3 times daily October 03: Saw the patient this morning. Sitting at the edge of the bed. Family visiting. Was then pending to go down for surgery. No nausea vomiting. NPO. October 04: Patient was resumed on diet today. Cleared by surgery this afternoon. Patient blood pressures running rather high. I ordered an extra dose of Cozaar. And 1 dose of hydrochlorothiazide Suersh. Blood pressure still running high. One of the patient's state back and added Lopressor twice daily. Later the nurse called me that patient wanted to go home and left AMA. Social history: Lives alone. No smoking no alcohol. Physical examination: VITAL SIGNS: 97.9, 70, 19, 189/83, 94% room air GENERAL: BMI 43.9, comfortable resting d EYES: Pupils equal. Conjunctiva luiz l. HEENT: External appearance of nose and ears normal, oral cavity grossly normal. NECK: JVD not raised; masses not palpable. HEART: First and second heart sounds are normal; no edema. LUNGS: Respiratory rate normal; clear to auscultation. ABDOMEN: Soft, mild abdominal tenderness, liver spleen not palpable, no masses palpable. PSYCH: Alert and oriented x3; mood and affect luiz l. INVESTIGATIONS, reviewed in the clinical context: October 03: White count 10.5 hemoglobin 8.5 potassium 4.2 creatinine 0.88 October 01: White count 11.8 sodium 135 creatinine 1.06 September 30: White count 11.6 hemoglobin 8.8 potassium 4.7 BUN 30 creatinine 1.19 September 29: White count 11.4 hemoglobin 8.4 platelets 28 potassium 4.2 sodium 127 BUN 34 creatinine 1.18 0.4 hemoglobin 8.4 platelets 298 sodium 127 potassium 4.2 BUN 34 creatinine 1.18 September 28: White count 14.2 hemoglobin 8.9 sodium 127 potassium 4.4 BUN 37 creatinine 1.45 September 27: White count 7.1 hemoglobin 8.7 sodium 129 potassium 4 BUN 37 creatinine 1.6 September 25: White count 6.3 hemoglobin 9.9 platelets 192 sodium 126 potassium 4 BUN 33 creatinine 1.0 UA: Leukoesterase large WBC 44 squamous epithelial cells 2 Influenza type A, type B, RSV, COVID-19: Not detected EKG tracing personally reviewed by me-normal sinus rhythm. EKG tracing personally reviewed by me-gallstones with significantly distended gallbladder lumen without significant gallbladder wall thickening or any adjacent pericystic cholecystic fluid. Assessment plan: -Acute cholecystitis. With choledocholithiasis.: IV ceftriaxone. Laparoscopic cholecystectomy with Dr Horn October 03 -Diabetes mellitus type 2 on oral hypoglycemic Metformin-held. Follow Accu-Cheks with sliding scale insulin -Hyponatremia from decreased solute intake. With hypovolemia: Much improved IV fluids. Avoid free fluid. Discussed with patient. -Sepsis: Blood cultures positive for E. coli, likely from infected gallbladder Repeat blood cultures negative -Acute kidney injury likely from sepsis, causing ATN: Improving Creatinine had gone up to 1.6 from 1.0. Down to 1.18 Hold off any renal offensive drugs including NSAIDs. Continue IV fluids Follow renal function -Essential hypertension, uncontrolled Chlorthalidone 25 mg a day. Losartan 100 mg a day. Amlodipine 5 mg a day. Lopressor 25 mg twice daily added. -Glaucoma Resume home eyedrops -Full code Disposition: Patient left AMA Past Medical History Past Medical History: Asthma, Diabetes Mellitus, Hypertension, Thyroid Disorder Additional Past Medical History / Comment(s): pressure in eye History of Any Multi-Drug Resistant Organisms: None Reported Past Surgical History: Orthopedic Surgery Additional Past Surgical History / Comment(s): Cataract surgery with shut placed Past Psychological History: No Psychological Hx Reported Smoking Status: Never smoker Past Alcohol Use History: Rare Past Drug Use History: None Reported Plan - Discharge Summary New Discharge Prescriptions: New cefuroxime axetiL [Ceftin] 500 mg PO BID #20 tab HYDROcodone/APAP 5-325MG [Sutherlin 5-325] 1 tab PO Q6HR PRN 3 Days #12 tab PRN Reason: Pain Metoprolol Tartrate [Lopressor] 25 mg PO BID #60 tablet Continue Ergocalciferol (Vitamin D2) [Drisdol (50,000 Iu)] 1,250 mcg PO WE Chlorthalidone [Hygroton] 25 mg PO DAILY prednisoLONE ACETATE 1% OPHTH [Pred Forte 1%] 1 drops LEFT EYE DAILY Losartan Potassium [Cozaar] 100 mg PO DAILY Dorzolamide 2% [Trusopt 2%] 1 drops LEFT EYE BID Carboxymethylcellulose Sodium [Thera Tears] 1 drop BOTH EYES QID metFORMIN HCL 1,000 mg PO BID amLODIPine [Norvasc] 5 mg PO DAILY 30 Days #30 tab Latanoprost [Latanoprost 0.005%] 1 drop LEFT EYE HS Brimonidine Tartrate [Alphagan P 0.2% Ophth Soln] 1 drops LEFT EYE BID Discharge Medication List Ergocalciferol (Vitamin D2) [Drisdol (50,000 Iu)] 1,250 mcg PO WE 09/11/22 [History] metFORMIN HCL 1,000 mg PO BID 09/11/22 [History] amLODIPine [Norvasc] 5 mg PO DAILY 30 Days #30 tab 09/15/22 [Rx] Chlorthalidone [Hygroton] 25 mg PO DAILY 08/07/23 [History] Brimonidine Tartrate [Alphagan P 0.2% Ophth Soln] 1 drops LEFT EYE BID 09/26/24 [History] Carboxymethylcellulose Sodium [Thera Tears] 1 drop BOTH EYES QID 09/26/24 [History] Dorzolamide 2% [Trusopt 2%] 1 drops LEFT EYE BID 09/26/24 [History] Latanoprost [Latanoprost 0.005%] 1 drop LEFT EYE HS 09/26/24 [History] Losartan Potassium [Cozaar] 100 mg PO DAILY 09/26/24 [History] prednisoLONE ACETATE 1% OPHTH [Pred Forte 1%] 1 drops LEFT EYE DAILY 09/26/24 [History] cefuroxime axetiL [Ceftin] 500 mg PO BID #20 tab 09/29/24 [Rx] HYDROcodone/APAP 5-325MG [Sutherlin 5-325] 1 tab PO Q6HR PRN 3 Days #12 tab 10/04/24 [Rx] Metoprolol Tartrate [Lopressor] 25 mg PO BID #60 tablet 10/04/24 [Rx] Follow up Appointment(s)/Referral(s): Sammi Benitez DO [Primary Care Provider] - 1-2 days Dereje Andersen MD [STAFF PHYSICIAN] - 1 Week Eric Horn MD [STAFF PHYSICIAN] - 10/11/24 3:00 pm Patient Instructions/Handouts: *Surgery [facility] - (Mitchell Treviño) Laparoscopic Cholecystectomy Discharge Disposition: LEFT AGAINST MEDICAL ADVICE
[2024-10-04] MEDS ORDERED: METOPROLOL TARTRATE 25 MG TAB PO SCH (21:00)
[2024-10-05] MEDS ORDERED: LOSARTAN 50 MG TAB PO SCH (09:00)
== END 2024-10-04 16:22 | disposition left against medical advice (07) | DRG 853 ==
LOC: EC 15:37 → 5NMEDONC 20:09 → 1SOBS 09-26 15:05 → 6NMEDSUR 09-29 15:21
PROVIDERS: ADMIT Hospitalist; ATTEND Hospitalist
PROC: 0FT44ZZ Resection of Gallbladder, Percutaneous Endoscopic Approach (ICD-10-PCS; principal; 2024-10-03 10:00)
DX: A41.51 Sepsis due to Escherichia coli [E. coli] (principal); N17.0 Acute kidney failure with tubular necrosis; E03.9 Hypothyroidism, unspecified; E11.65 Type 2 diabetes mellitus with hyperglycemia; E66.01 Morbid (severe) obesity due to excess calories; I10 Essential (primary) hypertension; J45.909 Unspecified asthma, uncomplicated; K80.42 Calculus of bile duct with acute cholecystitis without obstruction; E87.1 Hypo-osmolality and hyponatremia; Z68.41 Body mass index [BMI] 40.0-44.9, adult; G47.33 Obstructive sleep apnea (adult) (pediatric); H40.9 Unspecified glaucoma; R65.20 Severe sepsis without septic shock; K59.00 Constipation, unspecified; K82.8 Other specified diseases of gallbladder; N30.80 Other cystitis without hematuria; Z20.822 Contact with and (suspected) exposure to COVID-19; Z53.29 Procedure and treatment not carried out because of patient's decision for other reasons; Z79.01 Long term (current) use of anticoagulants; Z79.84 Long term (current) use of oral hypoglycemic drugs; Z79.899 Other long term (current) drug therapy; Z87.440 Personal history of urinary (tract) infections; Z88.6 Allergy status to analgesic agent; Z88.5 Allergy status to narcotic agent; Z88.0 Allergy status to penicillin; Z88.2 Allergy status to sulfonamides; Z88.8 Allergy status to other drugs, medicaments and biological substances; Z60.2 Problems related to living alone
CPT/HCPCS: 36415; 74177; 80048; 80053; 81001; 82150; 83605; 83690; 83735; 85025; 87040; 87077; 87086; 87186; 87636; 88304; 93005; 96361; 96365; 96367; 96372; 96375; 99285